=== PATIENT | male | born 1935 | race Caucasian/White ===

== ENCOUNTER 2016-05-28 17:43 | Inpatient (IN) | payer OTHER, BC ==
[~2016-05-28] VITALS: Ht 182.9 cm; Wt 75.5 kg
[~2016-05-28 17:43] MED LIST: ACET325T96 PO; ACETAMINOPHEN-COD PO; ADVIN25050 INH; ALBUAER19 INH; ASPCH81X PO; B-COTAB18 PO; CHOL100010 PO; CLC100 PO; CLOP1TAB5 PO; CRG625 PO; CYAN100020 PO; FOLI1TAB7 PO; HYDR200T5 PO; LDXCR60 TOP; LISI-729 PO; LSX40 PO; MAGNTAB17 PO; METH2.5T PO; MULT-190 PO; SIMV40TA4 PO; TIOTCAP INH; [UNRECOGNIZED DRUG - CODE] PO
[2016-05-28] MEDS ORDERED: ONDANSETRON INJ 2 MG/ML 2 ML VIAL IV STA (17:55)
[2016-05-28] MEDS ORDERED: SODIUM CHLORIDE 0.9% 1000ML 1,000 ML IV STA (17:55)
[2016-05-28] MEDS ORDERED: SPRIN/30 INH (18:05)
[2016-05-28] MEDS ORDERED: CHOL100041 PO (18:05)
[2016-05-28] MEDS ORDERED: PRVHFAIN INH (18:05)
--- NOTE | 2016-05-28 18:10 | EMERGENCY ROOM VISIT NOTE ---
History Report prepared by Chapito: Reyna Bridges Under the Supervision of: Kirsten BlueO. First contact with patient: 17:53 Chief Complaint: VOMITING Stated Complaint: HX OF CROHNS, 2 BOWEL RESECTIONS,VOMITING LAST 2HR History of Present Illness The patient is a 80 year old male who presents to the Emergency Room with complaints of intermittent vomiting for the past few hours. The patient has a history of Crohn's disease. He has had 2 bowel resections - the first in 1995 and the second in 2005. He has a history of bowel obstructions and states that today's symptoms feel similar to his previous obstructions. Per , the patient has been constipated for the past 3 days. He has been taking Colace and MiraLAX. He had a large bowel movement this morning. 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 The patient rates his pain as a 4/10 in severity. He also notes abdominal distention. He has been able to pass gas. The patient has an appointment at [facility] in 2 weeks to schedule surgery for an AAA. 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 A total of 10 systems reviewed and were otherwise negative. Past Medical & Surgical Medical Problems: (1) Bowel resection (2) Crohn's disease (3) Enterocolitis (4) Intractable vomiting with nausea (5) Lupus Family History Omitted due to advanced age Social History Smoking Status: Former Smoker Marital Status: Housing Status: lives with family Occupation Status: retired Current/Historical Medications Scheduled Aspirin (Aspirin Chewable), 81 MG PO HS B-Complex Vitamins (Vitamin B Complex), 1 TAB PO DAILY Carvedilol (Carvedilol), 6.25 MG PO BID Cholecalciferol (D 1000), 1,000 UNITS PO DAILY Cyanocobalamin (Vitamin B12), 1,000 MCG PO DAILY Fluticasone Prop/Salmeterol (Advair Diskus 250-50 Mcg/Dose), 1 PUFF INH Q12 Folic Acid (Folvite), 1 MG PO DAILY Furosemide (Furosemide), 20 MG PO DAILY Lisinopril (Zestril), 5 MG PO DAILY Magnesium Chloride-Calcium Car (Slow-Mag), 1 TAB PO BID Ocuvite Preservision (Ocuvite Preservision), 1 TAB PO BID Simvastatin (Zocor), 40 MG PO QPM Tiotropium Russell (Spiriva Handihaler), 1 CAP INH DAILY Scheduled PRN Albuterol (Ventolin Hfa), 2 PUFFS INH q4-6 PRN for Shortness of Breath Docusate Sodium (Docusate Sodium), 100 MG PO BID PRN for Constipation Allergies Coded Allergies: Ibuprofen (Verified Allergy, Unknown, ileus, 05/28/16) Morphine (Verified Allergy, Unknown, PATIENT GETS AN ILEUS, 05/28/16) IF PATIENT IS UNABLE TO MOVE AND WALK AFTER RECEIVING ANY NARCOTICS, HE WILL GET AN ILEUS. Uncoded Allergies: NARCOTICS (Allergy, Unknown, ILEUS, 09/01/13) IF PATIENT IS UNABLE TO MOVE AND WALK AFTER RECEIVING ANY NARCOTICS, HE WILL GET AN ILEUS. Physical Exam Vital Signs Date Time Temp Pulse Resp B/P Pulse Ox O2 Delivery O2 Flow Rate FiO2 05/28/16 20:04 82 22 124/77 91 Room Air 05/28/16 18:35 89 05/28/16 17:45 94 20 128/72 97 Room Air Physical Exam GENERAL: Patient is awake, alert, mildly anxious and uncomfortable appearing. Appears to be in some degree of pain. EYES: The conjunctivae are clear. The pupils are round and reactive. EARS, NOSE, MOUTH AND THROAT: The nose is without any evidence of any deformity. Mucous membranes are dry, tongue is midline NECK: The neck is nontender and supple. RESPIRATORY: Normal respiratory effort is noted there is no evidence of wheezing rhonchi or rales CARDIOVASCULAR: Regular rate and rhythm noted there no murmurs rubs or gallops normal S1 normal S2 GASTROINTESTINAL: The abdomen is moderately distended and diffusely tender, no specific guarding or rigidity. MUSCULOSKELETAL/EXTREMITIES: There is no evidence of gross deformity full range of motion is noted in the hips and shoulders SKIN: There is no obvious evidence of any rash. There are no petechiae, pallor or cyanosis noted. Pedal edema noted bilaterally. NEUROLOGIC: Patient is awake alert and oriented x3 Medical Decision & Procedures ER Provider Diagnostic Interpretation: Radiology results as stated below per my review and radiologist interpretation: SINGLE VIEW CHEST CLINICAL HISTORY: Generalized abdominal pain. FINDINGS: 2 AP, portable, upright chest radiographs are compared to study dated 02/24/2016 and correlated with chest CT dated 10/06/2014. The examination is degraded by portable technique and patient rotation. A single lead cardiac AICD is unchanged in position and partially obscures the left upper chest. The patient is status post midline sternotomy. The heart is enlarged and there is atherosclerotic calcification of the thoracic aorta. The pulmonary vasculature is noncongested. Advanced emphysema and chronic interstitial thickening is unchanged. No airspace consolidation, pleural effusion, or pneumothorax is seen. Apical scarring is observed. The skeletal structures are osteopenic. The bony thorax is grossly intact. IMPRESSION: 1. Cardiomegaly and AICD. There is no radiographic evidence of congestive failure. 2. Advanced emphysema. 3. No airspace consolidation or pleural effusion is identified. Electronically signed by: Damian Pretty M.D. 05/28/2016 6:15 PM Dictated Date/Time: 05/28/2016 6:[address] SCAN OF THE ABDOMEN AND PELVIS WITHOUT IV CONTRAST CLINICAL HISTORY: Generalized abdominal pain. Vomiting. COMPARISON STUDY: Abdominal CT dated 10/06/2014. TECHNIQUE: CT scan of the abdomen and pelvis is performed from the lung bases to the proximal femora. Images are reviewed in the axial, sagittal, and coronal planes. IV contrast was not administered for this examination as per the referring clinician. Note that the examination was performed and significant suboptimal fashion without oral and IV contrast. Automated dose control exposure was utilized. CT DOSE: 359.02 mGy.cm FINDINGS: Lung bases: Midline sternotomy wires are noted. The heart is enlarged and without pericardial effusion. Pacemaker leads are noted. The coronary arteries are densely calcified. Emphysema is present at the lung bases. No airspace consolidation or pleural effusion is identified. There is a small hiatal hernia. Liver: The unenhanced liver is normal in size and heterogeneous in attenuation. There is nodularity of the hepatic surface contour suggesting early change of cirrhosis. There is no intrahepatic biliary ductal dilatation. There is a 2.6 cm hepatic cyst. Gallbladder: Unremarkable. Spleen: Normal in size and attenuation. Pancreas: The unenhanced pancreas is moderately atrophic and grossly unremarkable. Adrenal glands: Unremarkable. Kidneys: The unenhanced kidneys are atrophic and without hydronephrosis. There are numerous bilateral nonobstructing renal calculi. The largest is in the lower pole of the left kidney measures 1.3 cm. A predominantly fat-containing lesion arising exophytically from the upper pole of left kidney is again seen. This measures 7.2 x 5.8 cm and is typical in appearance for an angiomyolipoma. There are numerous bilateral renal cysts measure up to 3.0 cm. There is a partially exophytic lesion arising from the posterior interpolar left kidney on image #180 measuring 1.8 cm. This does not meet CT criteria for a simple cyst. A subcentimeter complex/hemorrhagic cyst arising from the lower pole of left kidney is unchanged from 2015. Abdominal vasculature: There is advanced atherosclerotic calcification of the abdominal aorta. An infrarenal abdominal aortic aneurysm measures 4.3 x 5.2 cm. Mild aneurysmal dilatation is seen within the common femoral arteries bilaterally. These measure up to 1.8 cm. Bowel: There are postoperative changes from partial bowel resections with ileocolic anastomosis. An additional suture line is seen in the left lower quadrant. There are mildly distended fluid-filled loops of small bowel measuring up to 4.0 cm. There is also distention of the fluid-filled cecum. A few partially decompressed small bowel are seen in the left lower quadrant. No transition point is identified and there is no definite evidence of bowel obstruction. No thick walled bowel loops are identified. There is no pneumatosis intestinalis or portal venous gas. There is mild colonic diverticulosis without CT evidence of acute diverticulitis. Liquid stool seen throughout the right colon. The appendix is not identified and reported surgically absent. Peritoneum: There is no intraperitoneal free air or abdominal ascites. Lymphadenopathy: None. Pelvic viscera: The bladder is normal as visualized. The prostate gland is diminutive. Postoperative change is present in the groin bilaterally. Skeletal structures: The skeletal structures are osteopenic. No lytic or blastic lesions are seen. There is moderate lumbosacral spondylosis as well as scoliosis. Compression deformities are noted involving T12 and L4. IMPRESSION: 1. Significantly suboptimal examination without oral and IV contrast. 2. There are postoperative changes from bowel resections with ileocolic anastomosis. The small bowel loops are mildly distended and fluid-filled and there is distention of the fluid-filled cecum. No transition point is clearly identified and there is no definite evidence of bowel obstruction. This could represent an ileus or possibly a nonspecific enterocolitis. Clinical correlation will be required. 3. Cardiomegaly and emphysema. 4. 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 5. There are numerous bilateral nonobstructing renal calculi. 6. There is a 4.3 x 5.2 cm infrarenal abdominal aortic aneurysm. 7. There are numerous bilateral renal cysts. A 1.8 cm partially exophytic lesion in the interpolar left kidney is not clearly meet CT criteria for a simple cyst but has been present on prior examinations. If clinically warranted, a nonemergent follow-up renal protocol CT or MRI could be considered for further assessment. 8. Findings suggest early changes of cirrhosis. 9. Additional findings as above. Electronically signed by: Damian Pretty M.D. 05/28/2016 7:02 PM Dictated Date/Time: 05/28/2016 6:44 PM Laboratory Results Test 05/28/16 17:30 Immature Granulocyte % (Auto) 0.2 % White Blood Count 4.73 K/uL (4.8-10.8) Red Blood Count 3.42 M/uL (4.7-6.1) Hemoglobin 11.2 g/dL (14.0-18.0) Hematocrit 33.4 % (42-52) Mean Corpuscular Volume 97.7 fL (80-100) Mean Corpuscular Hemoglobin 32.7 pg (25-34) Mean Corpuscular Hemoglobin Concent 33.5 g/dl (32-36) Platelet Count 127 K/uL (130-400) Mean Platelet Volume 10.3 fL (7.4-10.4) Neutrophils (%) (Auto) 80.0 % Lymphocytes (%) (Auto) 11.8 % Monocytes (%) (Auto) 7.6 % Eosinophils (%) (Auto) 0.2 % Basophils (%) (Auto) 0.2 % Neutrophils # (Auto) 3.78 K/uL (1.4-6.5) Lymphocytes # (Auto) 0.56 K/uL (1.2-3.4) Monocytes # (Auto) 0.36 K/uL (0.11-0.59) Eosinophils # (Auto) 0.01 K/uL (0-0.5) Basophils # (Auto) 0.01 K/uL (0-0.2) Immature Granulocyte # (Auto) 0.01 K/uL (0.00-0.02) Hyposegmented Neutrophils 1+ Direct Bilirubin 0.3 mg/dl (0-0.2) Lipase 115 U/L (73-393) Laboratory results per my review. Medications Administered Medications (Trade) Dose Ordered Sig/Liya Route Start Time Stop Time Status Last Admin Dose Admin Sodium Chloride (Nss 1000ml) 1,000 ml @ 999 mls/hr Q1H1M STAT IV 05/28/16 17:55 05/28/16 18:55 DC 05/28/16 18:32 999 MLS/HR Ondansetron HCl (Zofran Inj) 4 mg NOW STAT IV 05/28/16 17:55 05/28/16 17:58 DC 05/28/16 18:32 4 MG Acetaminophen (Tylenol Tab) 1,000 mg STK-MED ONCE PO 05/28/16 20:32 05/28/16 20:34 DC 05/28/16 20:37 1,000 MG Ondansetron HCl 4 mg 4 mg Q6H PRN IV 05/28/16 21:30 06/27/16 21:29 05/29/16 06:20 4 MG Sodium Chloride (Nss 1000ml) 1,000 ml @ 50 mls/hr Q20H IV 05/28/16 21:30 05/31/16 07:01 05/28/16 23:27 100 MLS/HR ECG Indication: abdominal pain Rate (beats per minute): 94 Rhythm: normal sinus Findings: nonspecific-ST abn, no ectopy Comparison ECG Date: 11/11/2014 Change: T-wave inversions are new. ED Course 1752: The patient was evaluated in room A11B. A complete history and physical examination were performed. 1754: Zofran 4 mg IV, NSS 1000 ml @ 999 mls/hr IV 1928: I reassessed the patient at this time. He is feeling better and resting comfortably. I discussed the results and treatment plan with the patient. I answered all pertaining questions that he had. He expressed understanding and verbalized agreement. 1952: I spoke with Dr. Sagastume. We discussed the patient's results and treatment plan. The patient will be evaluated by the [facility] for further management. Medical Decision Differential diagnosis: Etiologies such as gastroenteritis, food borne illness, infections, appendicitis , diverticulitis, inflammatory bowel disease, obstruction, GI bleed, biliary pathology, as well as others were entertained. Nursing notes reviewed. Additional history obtained from the patient's family member. The patient is an 80-year-old male who presented to the emergency department for an evaluation of abdominal distention and vomiting. The patient is a history of Crohn's disease and has had multiple resections in the past. I thought his history and physical exam are consistent with bowel obstruction. He has a history of a AAA which is scheduled for possible surgical management and they're still trying to medically clear the patient because he has significant cardiac history as well. This reason I did not want to give the patient and IV dye load so a noncontrast CT was obtained. It did not show a definite obstruction but showed multiple dilated loops of bowel with fluid-filled segments. I do feel this could represent a partial small bowel obstruction or possibly a major ileus or possibly even an exacerbation of his Crohn's disease. I discussed the patient's laboratory radiographic studies with him. He was treated with IV fluids IV pain medicine and IV antiemetics. He was feeling much better. I discussed his case with the on-call [facility] hospitalist group. They have agreed to evaluate the patient in the emergency apartment for further management and disposition. Consults Time Called: 1929 Consulting Physician: Dr. Sagastume Returned Call: [address] Sagastume. We discussed the patient's results and treatment plan. The patient will be evaluated by the [facility] for further management. Impression Primary Impression: Nausea & vomiting Additional Impressions: Abnormal ECG Partial small bowel obstruction Ileus Scribe Attestation The scribe's documentation has been prepared under my direction and personally reviewed by me in its entirety. I confirm that the note above accurately reflects all work, treatment, procedures, and medical decision making performed by me. Departure Information Dispostion Being Evaluated By Hospitalist Referrals Tr Wild M.D. (PCP) Patient Instructions My [facility] Problem Qualifiers Primary Impression: Nausea & vomiting Vomiting type: unspecified Vomiting Intractability: unspecified Qualified Codes: R11.2 - Nausea with vomiting, unspecified
--- NOTE | 2016-05-28 18:16 | DIAGNOSTIC IMAGING REPORT ---
SINGLE VIEW CHEST CLINICAL HISTORY: Generalized abdominal pain. FINDINGS: 2 AP, portable, upright chest radiographs are compared to study dated 02/24/2016 and correlated with chest CT dated 10/06/2014. The examination is degraded by portable technique and patient rotation. A single lead cardiac AICD is unchanged in position and partially obscures the left upper chest. The patient is status post midline sternotomy. The heart is enlarged and there is atherosclerotic calcification of the thoracic aorta. The pulmonary vasculature is noncongested. Advanced emphysema and chronic interstitial thickening is unchanged. No airspace consolidation, pleural effusion, or pneumothorax is seen. Apical scarring is observed. The skeletal structures are osteopenic. The bony thorax is grossly intact. IMPRESSION: 1. Cardiomegaly and AICD. There is no radiographic evidence of congestive failure. 2. Advanced emphysema. 3. No airspace consolidation or pleural effusion is identified. Electronically signed by: Damian Pretty M.D. 05/28/2016 6:15 PM Dictated Date/Time: 05/28/2016 6:13 PM
[2016-05-28 18:39] LABS: HEMATOCRIT 33.4 % (42-52); MEAN CELL VOLUME 97.7 fL (80-100); MEAN CORPUSCULAR HEMOGLOBIN 32.7 pg (25-34); MEAN CORPUSCULAR HGB CONC 33.5 g/dl (32-36); MEAN PLATELET VOLUME 10.3 fL (7.4-10.4); PLATELET COUNT 127 K/uL (130-400); RED BLOOD COUNT 3.42 M/uL (4.7-6.1); WHITE BLOOD COUNT 4.73 K/uL (4.8-10.8)
[2016-05-28 18:48] LABS: INR 1.1 (0.9-1.1); PARTIAL THROMBOPLASTIN RATIO 1.1; PROTHROMBIN TIME (PATIENT) 12.2 SECONDS (9.0-12.0)
[2016-05-28 18:55] LABS: BASO % 0.2 %; BASO ABS # 0.01 K/uL (0-0.2); COMPLETE YES; EOS % 0.2 %; HYPOSEGMENTED POLYS 1+; IG% 0.2 %; LYMPH % 11.8 %; LYMPH ABS # 0.56 K/uL (1.2-3.4); MONO % 7.6 %
--- NOTE | 2016-05-28 19:03 | DIAGNOSTIC IMAGING REPORT ---
CT SCAN OF THE ABDOMEN AND PELVIS WITHOUT IV CONTRAST CLINICAL HISTORY: Generalized abdominal pain. Vomiting. COMPARISON STUDY: Abdominal CT dated 10/06/2014. TECHNIQUE: CT scan of the abdomen and pelvis is performed from the lung bases to the proximal femora. Images are reviewed in the axial, sagittal, and coronal planes. IV contrast was not administered for this examination as per the referring clinician. Note that the examination was performed and significant suboptimal fashion without oral and IV contrast. Automated dose control exposure was utilized. CT DOSE: 359.02 mGy.cm FINDINGS: Lung bases: Midline sternotomy wires are noted. The heart is enlarged and without pericardial effusion. Pacemaker leads are noted. The coronary arteries are densely calcified. Emphysema is present at the lung bases. No airspace consolidation or pleural effusion is identified. There is a small hiatal hernia. Liver: The unenhanced liver is normal in size and heterogeneous in attenuation. There is nodularity of the hepatic surface contour suggesting early change of cirrhosis. There is no intrahepatic biliary ductal dilatation. There is a 2.6 cm hepatic cyst. Gallbladder: Unremarkable. Spleen: Normal in size and attenuation. Pancreas: The unenhanced pancreas is moderately atrophic and grossly unremarkable. Adrenal glands: Unremarkable. Kidneys: The unenhanced kidneys are atrophic and without hydronephrosis. There are numerous bilateral nonobstructing renal calculi. The largest is in the lower pole of the left kidney measures 1.3 cm. A predominantly fat-containing lesion arising exophytically from the upper pole of left kidney is again seen. This measures 7.2 x 5.8 cm and is typical in appearance for an angiomyolipoma. There are numerous bilateral renal cysts measure up to 3.0 cm. There is a partially exophytic lesion arising from the posterior interpolar left kidney on image #180 measuring 1.8 cm. This does not meet CT criteria for a simple cyst. A subcentimeter complex/hemorrhagic cyst arising from the lower pole of left kidney is unchanged from 2015. Abdominal vasculature: There is advanced atherosclerotic calcification of the abdominal aorta. An infrarenal abdominal aortic aneurysm measures 4.3 x 5.2 cm. Mild aneurysmal dilatation is seen within the common femoral arteries bilaterally. These measure up to 1.8 cm. Bowel: There are postoperative changes from partial bowel resections with ileocolic anastomosis. An additional suture line is seen in the left lower quadrant. There are mildly distended fluid-filled loops of small bowel measuring up to 4.0 cm. There is also distention of the fluid-filled cecum. A few partially decompressed small bowel are seen in the left lower quadrant. No transition point is identified and there is no definite evidence of bowel obstruction. No thick walled bowel loops are identified. There is no pneumatosis intestinalis or portal venous gas. There is mild colonic diverticulosis without CT evidence of acute diverticulitis. Liquid stool seen throughout the right colon. The appendix is not identified and reported surgically absent. Peritoneum: There is no intraperitoneal free air or abdominal ascites. Lymphadenopathy: None. Pelvic viscera: The bladder is normal as visualized. The prostate gland is diminutive. Postoperative change is present in the groin bilaterally. Skeletal structures: The skeletal structures are osteopenic. No lytic or blastic lesions are seen. There is moderate lumbosacral spondylosis as well as scoliosis. Compression deformities are noted involving T12 and L4. IMPRESSION: 1. Significantly suboptimal examination without oral and IV contrast. 2. There are postoperative changes from bowel resections with ileocolic anastomosis. The small bowel loops are mildly distended and fluid-filled and there is distention of the fluid-filled cecum. No transition point is clearly identified and there is no definite evidence of bowel obstruction. This could represent an ileus or possibly a nonspecific enterocolitis. Clinical correlation will be required. 3. Cardiomegaly and emphysema. 4. 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 5. There are numerous bilateral nonobstructing renal calculi. 6. There is a 4.3 x 5.2 cm infrarenal abdominal aortic aneurysm. 7. There are numerous bilateral renal cysts. A 1.8 cm partially exophytic lesion in the interpolar left kidney is not clearly meet CT criteria for a simple cyst but has been present on prior examinations. If clinically warranted, a nonemergent follow-up renal protocol CT or MRI could be considered for further assessment. 8. Findings suggest early changes of cirrhosis. 9. Additional findings as above. Electronically signed by: Damian Pretty M.D. 05/28/2016 7:02 PM Dictated Date/Time: 05/28/2016 6:44 PM
[2016-05-28 19:16] LABS: ALT/SGPT 18 U/L (12-78); BLOOD UREA NITROGEN 27 mg/dl (7-18); BUN/CREATININE RATIO 31.5 (10-20); CALCIUM 8.7 mg/dl (8.5-10.1); CARBON DIOXIDE 23 mmol/L (21-32); CHLORIDE 95 mmol/L (98-107); CREATININE 0.87 mg/dl (0.60-1.40); GLUCOSE 111 mg/dl (70-99); POTASSIUM 4.2 mmol/L (3.5-5.1); SODIUM 132 mmol/L (136-145)
[2016-05-28 19:21] LABS: ALKALINE PHOSPHATASE 111 U/L (45-117); AST/SGOT 24 U/L (15-37)
[2016-05-28] MEDS ORDERED: ACETAMINOPHEN 500 MG TAB PO ONE (20:32)
[2016-05-28] MEDS ORDERED: ALBUTEROL HFA 8 GM INHALER INH PRN (21:30)
[2016-05-28] MEDS ORDERED: ALUMINUM/MAGNESIUM/SIMETH (MAALOX MAX) 30 ML UDC PO PRN (21:30)
[2016-05-28] MEDS ORDERED: DOCUSATE SODIUM 100 MG CAP PO PRN (21:30)
[2016-05-28] MEDS ORDERED: MAGNESIUM HYDROXIDE SUSP 30 ML UDC PO PRN (21:30)
[2016-05-28] MEDS: SODIUM CHLORIDE 0.9% 1000ML 1,000 ML IV SCH (23:27)
[2016-05-29] MEDS: ONDANSETRON INJ 2 MG/ML 2 ML VIAL IV PRN ×3 (00:21→19:45)
[2016-05-29 02:31] VITALS: BP 123/69; PULSE 91; TEMP 36.5; Ht 182.9 cm; Wt 75.5 kg
--- NOTE | 2016-05-29 02:50 | History and Physical ---
History & Physical Date & Time of Service: May 29, 2016 at 02:33 Chief Complaint: Entercolitis, Intractable Vomiting With Nausea Primary Care Physician: Tr Wild M.D. History of Present Illness This is an 80 yo m that is presenting to us with new onset intractable N&V and abdominal discomfort. This started approx 2 hours [employer] RO[employer] WORK[employer]. he lasted vomited outside of the emergency room. He does have lower abdominal "cramping" and is currently a 3/10. It is constant without any alleviating factors. He does feel better after receiving Zofran. He does have a h/o bowel resection x2, one in 1995 and one in early 1999 for Crohn's disease. As a result he has had SBO in the past and feels that this is similar to those previous episodes and decided to come to the ED. He was evaluated and found to have inflammation of the colon reflective of enterocolitis vs ileus. he was also noted to be slightly hyponatremic. he does follow with Dr mullen for his Crohn's regularly. he also has a h/o abdominal aneurysm which is planned to be surgically repaired in June. Dr Brown follows him in the oupt setting for his severe CHF. He does have a defibb in place because of it. Last echo was actually May 22, 2016 and revealed: - mild global hypokinesis - decreased LV systolic function - EF 45% - mod- Severe TR Past Medical/Surgical History Medical Problems: (1) Bowel resection Status: Resolved (2) Crohn's disease Status: Chronic (3) Lupus Status: Chronic CHF with defibb CABG Abdominal aneurysm Family History Omitted due to advanced age Social History Smoking Status: Former Smoker Smokeless Tobacco Use: No Alcohol Use: none Drug Use: none Marital Status: Housing status: lives with family Occupational Status: retired Allergies Coded Allergies: Ibuprofen (Verified Allergy, Unknown, ileus, 05/28/16) Morphine (Verified Allergy, Unknown, PATIENT GETS AN ILEUS, 05/28/16) IF PATIENT IS UNABLE TO MOVE AND WALK AFTER RECEIVING ANY NARCOTICS, HE WILL GET AN ILEUS. Uncoded Allergies: NARCOTICS (Allergy, Unknown, ILEUS, 09/01/13) IF PATIENT IS UNABLE TO MOVE AND WALK AFTER RECEIVING ANY NARCOTICS, HE WILL GET AN ILEUS. Home Medications Scheduled Aspirin (Aspirin Chewable), 81 MG PO HS B-Complex Vitamins (Vitamin B Complex), 1 TAB PO DAILY Carvedilol (Carvedilol), 6.25 MG PO BID Cholecalciferol (D 1000), 1,000 UNITS PO DAILY Cyanocobalamin (Vitamin B12), 1,000 MCG PO DAILY Fluticasone Prop/Salmeterol (Advair Diskus 250-50 Mcg/Dose), 1 PUFF INH Q12 Folic Acid (Folvite), 1 MG PO DAILY Furosemide (Furosemide), 20 MG PO DAILY Lisinopril (Zestril), 5 MG PO DAILY Magnesium Chloride-Calcium Car (Slow-Mag), 1 TAB PO BID Ocuvite Preservision (Ocuvite Preservision), 1 TAB PO BID Simvastatin (Zocor), 40 MG PO QPM Tiotropium Wade (Spiriva Handihaler), 1 CAP INH DAILY Scheduled PRN Albuterol (Ventolin Hfa), 2 PUFFS INH q4-6 PRN for Shortness of Breath Docusate Sodium (Docusate Sodium), 100 MG PO BID PRN for Constipation Review of Systems Constitutional: No fever Eyes: No worsening of vision ENT: No hearing loss Respiratory: No cough, No dyspnea at rest, No dyspnea on exertion, No shortness of breath, No sputum, No wheezing Cardiovascular: No chest pain Abdomen: + nausea, + pain, + vomiting, No constipation, No diarrhea Musculoskeletal: No joint pain, No muscle pain Genitourinary - Male: No hematuria Neurologic: No memory loss Endocrine: No fatigue Integumentary: No rash Physical Exam Vital Signs Date Time Temp Pulse Resp B/P Pulse Ox O2 Delivery O2 Flow Rate FiO2 05/28/16 21:58 89 20 113/70 93 Room Air 05/28/16 20:04 82 22 124/77 91 Room Air 05/28/16 18:35 89 05/28/16 17:45 94 20 128/72 97 Room Air General Appearance: WD/WN, no apparent distress Head: normocephalic, atraumatic Eyes: normal inspection ENT: normal ENT inspection Neck: supple Respiratory/Chest: lungs clear, normal breath sounds, no respiratory distress, no accessory muscle use Cardiovascular: regular rate, rhythm, no murmur Abdomen/GI: soft, + tenderness (lower abd without rebound), + distended, + pertinent finding (small umbilical hernia noted) Back: normal inspection Extremities/Musculoskelatal: no calf tenderness, no pedal edema Neurologic/Psych: no motor/sensory deficits, alert, normal mood/affect, oriented x 3 Skin: normal color, warm/dry, no rash Lymphatic: no adenopathy Diagnostics Laboratory Results Results Past 24 Hours Test 05/28/16 17:30 Range/Units White Blood Count 4.73 4.8-10.8 K/uL Red Blood Count 3.42 4.7-6.1 M/uL Hemoglobin 11.2 14.0-18.0 g/dL Hematocrit 33.4 42-52 % Mean Corpuscular Volume 97.7 80-100 fL Mean Corpuscular Hemoglobin 32.7 25-34 pg Mean Corpuscular Hemoglobin Concent 33.5 32-36 g/dl Platelet Count 127 130-400 K/uL Mean Platelet Volume 10.3 7.4-10.4 fL Neutrophils (%) (Auto) 80.0 % Lymphocytes (%) (Auto) 11.8 % Monocytes (%) (Auto) 7.6 % Eosinophils (%) (Auto) 0.2 % Basophils (%) (Auto) 0.2 % Neutrophils # (Auto) 3.78 1.4-6.5 K/uL Lymphocytes # (Auto) 0.56 1.2-3.4 K/uL Monocytes # (Auto) 0.36 0.11-0.59 K/uL Eosinophils # (Auto) 0.01 0-0.5 K/uL Basophils # (Auto) 0.01 0-0.2 K/uL RDW Standard Deviation 57.2 36.4-46.3 fL RDW Coefficient of Variation 16.2 11.5-14.5 % Immature Granulocyte % (Auto) 0.2 % Immature Granulocyte # (Auto) 0.01 0.00-0.02 K/uL Hyposegmented Neutrophils 1+ Prothrombin Time 12.2 9.0-12.0 SECONDS Prothromb Time International Ratio 1.1 0.9-1.1 Activated Partial Thromboplast Time 29.6 21.0-31.0 SECONDS Partial Thromboplastin Ratio 1.1 Sodium Level 132 136-145 mmol/L Potassium Level 4.2 3.5-5.1 mmol/L Chloride Level 95 98-107 mmol/L Carbon Dioxide Level 23 21-32 mmol/L Anion Gap 14.0 3-11 mmol/L Blood Urea Nitrogen 27 7-18 mg/dl Creatinine 0.87 0.60-1.40 mg/dl Est Creatinine Clear Calc Drug Dose 74.3 ml/min Estimated GFR () 94.5 Estimated GFR (Non- 81.5 BUN/Creatinine Ratio 31.5 10-20 Random Glucose 111 70-99 mg/dl Calcium Level 8.7 8.5-10.1 mg/dl Total Bilirubin 0.7 0.2-1 mg/dl Direct Bilirubin 0.3 0-0.2 mg/dl Aspartate Amino Transf (AST/SGOT) 24 15-37 U/L Alanine Aminotransferase (ALT/SGPT) 18 12-78 U/L Alkaline Phosphatase 111 45-117 U/L Troponin I < 0.015 0-0.045 ng/ml Total Protein 8.0 6.4-8.2 gm/dl Albumin 3.6 3.4-5.0 gm/dl Lipase 115 73-393 U/L Diagnostic Radiology CT SCAN OF THE ABDOMEN AND PELVIS WITHOUT IV CONTRAST CLINICAL HISTORY: Generalized abdominal pain. Vomiting. COMPARISON STUDY: Abdominal CT dated 10/06/2014. TECHNIQUE: CT scan of the abdomen and pelvis is performed from the lung bases to the proximal femora. Images are reviewed in the axial, sagittal, and coronal planes. IV contrast was not administered for this examination as per the referring clinician. Note that the examination was performed and significant suboptimal fashion without oral and IV contrast. Automated dose control exposure was utilized. CT DOSE: 359.02 mGy.cm FINDINGS: Lung bases: Midline sternotomy wires are noted. The heart is enlarged and without pericardial effusion. Pacemaker leads are noted. The coronary arteries are densely calcified. Emphysema is present at the lung bases. No airspace consolidation or pleural effusion is identified. There is a small hiatal hernia. Liver: The unenhanced liver is normal in size and heterogeneous in attenuation. There is nodularity of the hepatic surface contour suggesting early change of cirrhosis. There is no intrahepatic biliary ductal dilatation. There is a 2.6 cm hepatic cyst. Gallbladder: Unremarkable. Spleen: Normal in size and attenuation. Pancreas: The unenhanced pancreas is moderately atrophic and grossly unremarkable. Adrenal glands: Unremarkable. Kidneys: The unenhanced kidneys are atrophic and without hydronephrosis. There are numerous bilateral nonobstructing renal calculi. The largest is in the lower pole of the left kidney measures 1.3 cm. A predominantly fat-containing lesion arising exophytically from the upper pole of left kidney is again seen. This measures 7.2 x 5.8 cm and is typical in appearance for an angiomyolipoma. There are numerous bilateral renal cysts measure up to 3.0 cm. There is a partially exophytic lesion arising from the posterior interpolar left kidney on image #180 measuring 1.8 cm. This does not meet CT criteria for a simple cyst. A subcentimeter complex/hemorrhagic cyst arising from the lower pole of left kidney is unchanged from 2015. Abdominal vasculature: There is advanced atherosclerotic calcification of the abdominal aorta. An infrarenal abdominal aortic aneurysm measures 4.3 x 5.2 cm. Mild aneurysmal dilatation is seen within the common femoral arteries bilaterally. These measure up to 1.8 cm. Bowel: There are postoperative changes from partial bowel resections with ileocolic anastomosis. An additional suture line is seen in the left lower quadrant. There are mildly distended fluid-filled loops of small bowel measuring up to 4.0 cm. There is also distention of the fluid-filled cecum. A few partially decompressed small bowel are seen in the left lower quadrant. No transition point is identified and there is no definite evidence of bowel obstruction. No thick walled bowel loops are identified. There is no pneumatosis intestinalis or portal venous gas. There is mild colonic diverticulosis without CT evidence of acute diverticulitis. Liquid stool seen throughout the right colon. The appendix is not identified and reported surgically absent. Peritoneum: There is no intraperitoneal free air or abdominal ascites. Lymphadenopathy: None. Pelvic viscera: The bladder is normal as visualized. The prostate gland is diminutive. Postoperative change is present in the groin bilaterally. Skeletal structures: The skeletal structures are osteopenic. No lytic or blastic lesions are seen. There is moderate lumbosacral spondylosis as well as scoliosis. Compression deformities are noted involving T12 and L4. IMPRESSION: 1. Significantly suboptimal examination without oral and IV contrast. 2. There are postoperative changes from bowel resections with ileocolic anastomosis. The small bowel loops are mildly distended and fluid-filled and there is distention of the fluid-filled cecum. No transition point is clearly identified and there is no definite evidence of bowel obstruction. This could represent an ileus or possibly a nonspecific enterocolitis. Clinical correlation will be required. 3. Cardiomegaly and emphysema. 4. 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 5. There are numerous bilateral nonobstructing renal calculi. 6. There is a 4.3 x 5.2 cm infrarenal abdominal aortic aneurysm. 7. There are numerous bilateral renal cysts. A 1.8 cm partially exophytic lesion in the interpolar left kidney is not clearly meet CT criteria for a simple cyst but has been present on prior examinations. If clinically warranted, a nonemergent follow-up renal protocol CT or MRI could be considered for further assessment. 8. Findings suggest early changes of cirrhosis. 9. Additional findings as above. SINGLE VIEW CHEST CLINICAL HISTORY: Generalized abdominal pain. FINDINGS: 2 AP, portable, upright chest radiographs are compared to study dated 02/24/2016 and correlated with chest CT dated 10/06/2014. The examination is degraded by portable technique and patient rotation. A single lead cardiac AICD is unchanged in position and partially obscures the left upper chest. The patient is status post midline sternotomy. The heart is enlarged and there is atherosclerotic calcification of the thoracic aorta. The pulmonary vasculature is noncongested. Advanced emphysema and chronic interstitial thickening is unchanged. No airspace consolidation, pleural effusion, or pneumothorax is seen. Apical scarring is observed. The skeletal structures are osteopenic. The bony thorax is grossly intact. IMPRESSION: 1. Cardiomegaly and AICD. There is no radiographic evidence of congestive failure. 2. Advanced emphysema. 3. No airspace consolidation or pleural effusion is identified. EKG sinus arrhythmia Qtc 460 Non specific T wave changes in lateral leads Impression Assessment and Plan This is an 80 yo m with N&V and significant surgical history to the abdomen including two bowel resections and multiple SBO N&V possibly secondary to ileus vs enterocolitis - NPO - NSS @ 50, received bolus in ED - Consult GI - follow CMP and CBC Hyponatremia secondary to dehydration - recheck in am - continue NSS Chronic anemia - follow serial CBC Chronic systolic CHF s/p CABG - cont carvedilol, furosemide and lisinopril Hyper chol - cont simvastatin COPD - cont albuterol and spiriva DVt prophylaxis lovenox full code Level of Care Med/Surg Resuscitation Status FULL RESUSCITATION VTE Prophylaxis VTE Risk Assessment Done? Y/N: Yes Risk Level: Moderate Given or contraindicated: Enoxaparin (Lovenox)SQ Social Service Consult None Apply Note Total Time: Critical Care 30 - 74 minutes Additional Copies To Tr Wild M.D. Assessment and Plan Attending Addendum: I have physically seen and examined this patient, have directed their medical care, have supervised the medical residents activities, and agree with the H&P as noted above, with the following changes: NONE The patient is awake, well-developed and adequately nourished, alert and oriented 3, normocephalic and atraumatic, lying in bed and in no acute distress. HEENT--PERRL, EOMI, mucous membranes and oropharynx dry. Neck--supple, no JVD or bruits, thyroid normal, trachea midline, no adenopathy. Heart--normal S1 and S2, no extra beats, no murmurs, rubs or gallops. Lungs--clear bilaterally, no respiratory distress, no accessory muscle use. Abdomen--normal bowel sounds and soft, tympanitic and mildly distended. Extremities--no cyanosis, clubbing or edema. There are good distal pulses b/l. Dermatologic--normal skin turgor, normal color, warm and dry, no abnormal lymph nodes, no rash. Neurologic--cranial nerves II through XII grossly intact, motor and sensory examination normal. Psychiatric--normal affect. Assessment and Plan: Ileus versus enterocolitis hypo-patient be admitted to the medical surgical floor nothing by mouth except medications at this time. Place on IV fluids, no antibiotics. We'll consult his enrollment services vice president Dr. Mullen. The question will be whether this is a recurrence/flareup of Crohn's disease. Hypertension--continue carvedilol 6.25 mg by mouth twice a day and lisinopril 5 mg by mouth daily. We'll hold furosemide 20 mg by mouth daily. Next Hypercholesterolemia--continue simvastatin 40 mg by mouth every afternoon. Next COPD continue Advair Diskus 250/50 one inhalation twice a day and Spiriva HandiHaler 1 inhalation every morning. Vitamin B12 deficiency--continue supplement 1000 g by mouth daily. Lupus--supportive therapy.
[2016-05-29 06:32] LABS: INR 1.1 (0.9-1.1); PARTIAL THROMBOPLASTIN RATIO 1.2; PROTHROMBIN TIME (PATIENT) 12.3 SECONDS (9.0-12.0)
[2016-05-29 06:34] LABS: MEAN CELL VOLUME 99.1 fL (80-100); MEAN CORPUSCULAR HEMOGLOBIN 32.5 pg (25-34); MEAN CORPUSCULAR HGB CONC 32.8 g/dl (32-36); MEAN PLATELET VOLUME 9.8 fL (7.4-10.4); PLATELET COUNT 111 K/uL (130-400); RED BLOOD COUNT 3.23 M/uL (4.7-6.1); WHITE BLOOD COUNT 4.71 K/uL (4.8-10.8)
[2016-05-29 06:50] LABS: BUN/CREATININE RATIO 32.4 (10-20); CALCIUM 8.2 mg/dl (8.5-10.1); CREATININE 0.66 mg/dl (0.60-1.40); POTASSIUM 3.8 mmol/L (3.5-5.1)
[2016-05-29 07:10] LABS: ALB/GLOB RATIO 0.7 (0.9-2)
[2016-05-29 07:33] VITALS: BP 120/70; PULSE 88; TEMP 37.1; O2SAT 98
[2016-05-29] MEDS: CARVEDILOL 6.25 MG TAB PO SCH ×2 (08:00→20:47)
[2016-05-29] MEDS: MAGNESIUM CHLORIDE 64MG DELAYED REL TAB PO SCH ×2 (08:00→20:46)
[2016-05-29] MEDS ORDERED: CYANOCOBALAMIN 500 MCG TAB (VIT B-12) PO SCH (08:00)
[2016-05-29] MEDS ORDERED: FUROSEMIDE 20 MG TAB PO SCH (08:00)
[2016-05-29] MEDS ORDERED: CHOLECALCIFEROL 1000 INTER.UNIT TAB PO SCH (08:00)
[2016-05-29] MEDS ORDERED: NITROGLYCERIN 0.4 MG SL PER TAB CHARGE SL PRN (08:00)
[2016-05-29] MEDS ORDERED: CEROVITE ADV FORMULA TAB PO SCH (08:00)
[2016-05-29] MEDS: LISINOPRIL 5 MG TAB PO SCH (08:00)
[2016-05-29] MEDS ORDERED: VITAMIN B COMPLEX TAB PO SCH (08:00)
--- NOTE | 2016-05-29 08:02 | Gastroenterology Progress Note ---
Progress Note Subjective Pt evaluation today including: conversation w/ patient, physical exam, chart review (this admit EMR, [facility] EMR), lab review, review of studies Medications Current Inpatient Medications Medications (Trade) Dose Ordered Sig/Liya Route Start Time Stop Time Status Last Admin Dose Admin Enoxaparin Sodium (Lovenox Inj) 40 mg Q24H SQ 05/29/16 09:00 06/28/16 08:59 Acetaminophen (Tylenol Tab) 650 mg Q4H PRN PO 05/28/16 21:30 06/27/16 21:29 Al Hydrox/Mg Hydrox/Simethicone (Maalox Max Susp) 15 ml Q4H PRN PO 05/28/16 21:30 06/27/16 21:29 Magnesium Hydroxide (Milk Of Magnesia Susp) 30 ml Q6H PRN PO 05/28/16 21:30 06/27/16 21:29 Ondansetron HCl (Zofran Inj) 4 mg Q6H PRN IV 05/28/16 21:30 06/27/16 21:29 05/29/16 06:20 4 MG Albuterol (Ventolin Hfa Inhaler) 2 puffs Q6 PRN INH 05/28/16 21:30 06/27/16 21:29 Carvedilol (Coreg Tab) 6.25 mg BID PO 05/29/16 08:00 06/28/16 08:59 Docusate Sodium (coLACE CAP) 100 mg BID PRN PO 05/28/16 21:30 06/27/16 21:29 Salmeterol Xinafoate/ Fluticasone (Advair Diskus 250/50 Inh) 1 puff Q12 INH 05/29/16 09:00 06/28/16 08:59 Folic Acid (Folvite Tab) 1 mg DAILY PO 05/29/16 08:00 06/28/16 08:59 Furosemide (Lasix Tab) 20 mg DAILY PO 05/29/16 08:00 06/28/16 08:59 Lisinopril (Zestril Tab) 5 mg DAILY PO 05/29/16 08:00 06/28/16 08:59 Multivitamins/ Minerals (Multivitamin W/ Minerals Tab) 1 tab BID PO 05/29/16 08:00 06/28/16 08:59 Simvastatin (Zocor Tab) 40 mg QPM PO 05/29/16 21:00 06/28/16 20:59 Tiotropium Mclean (Spiriva Handihaler Inhaler) 1 puff DAILY INH 05/29/16 08:00 06/28/16 08:59 Vitamin B Complex (Vitamin B Complex) 1 tab DAILY PO 05/29/16 08:00 06/28/16 08:59 Cholecalciferol (Vitamin D Tab) 1,000 inter.unit DAILY PO 05/29/16 08:00 06/28/16 08:59 Cyanocobalamin (Vitamin B-12 Tab) 1,000 mcg DAILY PO 05/29/16 08:00 06/28/16 08:59 Magnesium Chloride 64 mg 64 mg BID PO 05/29/16 08:00 06/28/16 08:59 Sodium Chloride (Nss 1000ml) 1,000 ml @ 50 mls/hr Q20H IV 05/28/16 21:30 05/31/16 07:01 05/28/16 23:27 100 MLS/HR Objective Vital Signs Date Time Temp Pulse Resp B/P Pulse Ox O2 Delivery O2 Flow Rate FiO2 05/29/16 07:33 37.1 88 18 120/70 98 1.0 05/29/16 02:31 36.5 91 18 123/69 Room Air 05/28/16 21:58 89 20 113/70 93 Room Air 05/28/16 20:04 82 22 124/77 91 Room Air 05/28/16 18:35 89 05/28/16 17:45 94 20 128/72 97 Room Air Laboratory Results Last 24 Hours Test 05/28/16 17:30 05/29/16 05:45 White Blood Count 4.73 K/uL 4.71 K/uL Red Blood Count 3.42 M/uL 3.23 M/uL Hemoglobin 11.2 g/dL 10.5 g/dL Hematocrit 33.4 % 32.0 % Mean Corpuscular Volume 97.7 fL 99.1 fL Mean Corpuscular Hemoglobin 32.7 pg 32.5 pg Mean Corpuscular Hemoglobin Concent 33.5 g/dl 32.8 g/dl Platelet Count 127 K/uL 111 K/uL Mean Platelet Volume 10.3 fL 9.8 fL Neutrophils (%) (Auto) 80.0 % Lymphocytes (%) (Auto) 11.8 % Monocytes (%) (Auto) 7.6 % Eosinophils (%) (Auto) 0.2 % Basophils (%) (Auto) 0.2 % Neutrophils # (Auto) 3.78 K/uL Lymphocytes # (Auto) 0.56 K/uL Monocytes # (Auto) 0.36 K/uL Eosinophils # (Auto) 0.01 K/uL Basophils # (Auto) 0.01 K/uL RDW Standard Deviation 57.2 fL 57.9 fL RDW Coefficient of Variation 16.2 % 16.0 % Immature Granulocyte % (Auto) 0.2 % Immature Granulocyte # (Auto) 0.01 K/uL Hyposegmented Neutrophils 1+ Prothrombin Time 12.2 SECONDS 12.3 SECONDS Prothromb Time International Ratio 1.1 1.1 Activated Partial Thromboplast Time 29.6 SECONDS 31.7 SECONDS Partial Thromboplastin Ratio 1.1 1.2 Sodium Level 132 mmol/L 133 mmol/L Potassium Level 4.2 mmol/L 3.8 mmol/L Chloride Level 95 mmol/L 99 mmol/L Carbon Dioxide Level 23 mmol/L 24 mmol/L Anion Gap 14.0 mmol/L 10.0 mmol/L Blood Urea Nitrogen 27 mg/dl 21 mg/dl Creatinine 0.87 mg/dl 0.66 mg/dl Est Creatinine Clear Calc Drug Dose 74.3 ml/min 98.0 ml/min Estimated GFR () 94.5 105.8 Estimated GFR (Non- 81.5 91.3 BUN/Creatinine Ratio 31.5 32.4 Random Glucose 111 mg/dl 86 mg/dl Calcium Level 8.7 mg/dl 8.2 mg/dl Total Bilirubin 0.7 mg/dl 0.5 mg/dl Direct Bilirubin 0.3 mg/dl Aspartate Amino Transf (AST/SGOT) 24 U/L 19 U/L Alanine Aminotransferase (ALT/SGPT) 18 U/L 16 U/L Alkaline Phosphatase 111 U/L 93 U/L Troponin I < 0.015 ng/ml 0.463 ng/ml Total Protein 8.0 gm/dl 7.4 gm/dl Albumin 3.6 gm/dl 3.1 gm/dl Lipase 115 U/L Globulin 4.3 gm/dl Albumin/Globulin Ratio 0.7 Assessment and Plan GI Consult dictated Job [id number] bowel obstruction---pt does not have a cecum as suggested on CT--(2006 had ileum to AC anastomosis created)---suspect all SBO. check abd series this am, I called DR Rousseau of surgery for surgery consult to follow patient. Pt has not been on crohns meds since 2014 and no abd complaints to suggest active crohns so doubt a crohns flare but rather from adhesions or fixed stricture n/v--secondary to above improved abd pain--secondary to above--improved. cirrhosis--possibly from jail methotrexate used for his lupus (off Methotrexate since 2014) --nothing acute to do
[2016-05-29] MEDS: FLUTICASONE/SALMETEROL 250/50 (ADVAIR) 14 PUFF/1 INHALER INH SCH ×2 (08:23→20:46)
[2016-05-29] MEDS: TIOTROPIUM BROMIDE 5 PUFF/90 MCG INH INH SCH (08:24)
[2016-05-29] MEDS: ENOXAPARIN 40 MG/0.4 ML SYR SQ SCH (08:25)
--- NOTE | 2016-05-29 08:37 | GASTROINTESTINAL CONSULTATION ---
DATE OF CONSULTATION: 05/29/2016 DATE OF CONSULTATION: 05/29/2016. REASON FOR CONSULTATION: "Crohn's enterocolitis". This is a consultation from the hospitalists. CHIEF COMPLAINT: The patient has nausea, vomiting, abdominal pain. HISTORY OF PRESENT ILLNESS: The patient has a history of Crohn's disease. He has had 2 bowel resections in the past. I saw looking at the [facility] EMR last one was 2005. He had a stricture at the ileocolonic anastomosis which was resected then anastomosis ileum to ascending colon created. Last colonoscopy August 2013 showed the resection and he had a normal ileocolonic anastomosis and normal small bowel. Last EGD I saw on the chart was October 2004 normal. Last office visit with Dr. Mullen 01/09/2016. At the time he mentioned he had been off methotrexate for about a year, was treating his lupus and colitis, but he noticed increased liver fibrosis so that had been stopped; however, at that time he was having only 1-2 bowel movements a day and no abdominal pain and that has persisted. He has had no abdominal pain, his normal 1-2 bowel movements until just last few day. Last few days decreased bowel movements requring laxatives, then had lower abdominal cramps then abdominal distension and intractable nausea and vomiting. He came into the Emergency Room. A CAT scan of the abdomen showed COPD, small hiatal hernia, early cirrhosis, atrophic pancreas, liver cyst, abdominal aortic aneurysm and then some distended small bowel loops and "distended cecum", mild colonic diverticulosis, bowel resection and angiomyoma of the kidney and other left kidney lesion, no change from September 2014. The patient is using ibuprofen 4 a day over the last 3-4 days for back pain. PAST MEDICAL HISTORY: ALLERGIES: IBUPROFEN, MORPHINE, NARCOTICS. MEDICATIONS ON ADMISSION: Aspirin, vitamin B complex, carvedilol, vitamin D, vitamin B12, Advair, Folvite, Lasix, Zestril, magnesium, Ocuvite, Zocor, Spiriva, Ventolin, docusate. PROBLEMS AND SURGERY: CHF, abdominal aortic aneurysm that they are planning to do repair of in June of this year, cutaneous lupus, CABG, COPD, but no need for O2 at home. FAMILY HISTORY: Diabetes. SOCIAL HISTORY: Tobacco negative, ethanol negative. REVIEW OF SYSTEMS: CONSTITUTIONAL: Negative. Eyes macular degeneration. EARS, NOSE, MOUTH, AND THROAT: Negative. CARDIOVASCULAR: Negative. RESPIRATORY: Negative. GENITOURINARY: Negative. MUSCULOSKELETAL: Arthritis. INTEGUMENTARY: Lupus. NEUROLOGIC: Negative. PSYCHIATRIC, ENDOCRINE, HEMATOLOGIC: Negative except as noted above. PHYSICAL EXAMINATION: GENERAL: Male, appears stated age in no acute distress. VITAL SIGNS: Most recent vital signs in chart. Temp 37.1, pulse 88, respirations 18, BP 120/70, pulse oximetry 98% on 1 liter. EYES: Conjunctivae and lids normal. EARS, NOSE, THROAT: Oropharynx clear. NECK: Without obvious mass or thyroid enlargement. RESPIRATORY: Normal effort, clear to anterior auscultation. CARDIOVASCULAR: Without obvious murmur. EXTREMITIES: Without obvious edema. ABDOMEN: Positive bowel sounds, mildly distended and tympanitic. No guarding, no rebound. No obvious organomegaly or masses are appreciated. RECTAL EXAMINATION: Was not done. LYMPH: No obvious neck or groin nodes. MUSCULOSKELETAL: Digits and nails normal. SKIN: Without obvious rash or induration anteriorly. NEUROLOGIC: Cranial nerves intact. Sensation intact. PSYCHIATRIC: Recent and remote memory good. Insight and judgment good. DATA: As above plus CBC on admit, hemoglobin 11.2, PT and PTT were normal. CMP on admission BUN 27 and glucose 111. Otherwise, unremarkable. Lipase on admission was normal. IMPRESSION AND PLAN: 1. Bowel obstruction. I suspect this is all small bowel, I am going to check another abdominal surgeries today, place an NG, keep n.p.o. He has not been on Crohn's meds since 2015 and no abdominal complaints to suggest a Crohn's flare. Suspect fixed stricture maybe from indolent crohns or adhesions. . I consulted Dr. Rousseau of general surgery for surgery consult to follow patient. 2. Nausea and vomiting secondary to above, somewhat improved this morning. 3. Abdominal pain secondary to above, improved. 4. 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 MTDD
[2016-05-29 08:43] VITALS: BP 120/70; PULSE 88; TEMP 37.1; O2SAT 98
--- NOTE | 2016-05-29 09:53 | Surgery Consultation ---
Consultation Date of Consultation: May 29, 2016. Attending Physician: Christopher Sagatsume M.D. Reason for Consultation: Nausea/vomiting/abdominal distention history of Crohn's disease History of Present Illness Higinio is a pleasant 80 year-old male who presented to emergency department yesterday with complaint of nausea, vomiting, and abdominal cramping that started that day. States he has a history of Crohn's disease diagnosed 20 years ago and two bowel resections, last being in 2004. States he recently hurt his back and was taking Ibuprofen daily and believes he got constipated which caused him to get backed up. States he did not eat anything for two days and felt his abdomen to be really distended. Today patient states he is feeling better, abdominal bloating has improved and no nausea , vomiting or abdominal pain. Last bowel movement yesterday morning. Patient denies of any diarrhea. No fever or chills. No chest pain or shortness of breath. Overall feeling better compared to yesterday. Past Medical/Surgical History Medical Problems: (1) Abnormal ECG Status: Acute (2) Possible Ileus/enterocolitis Status: Acute (3) Nausea & vomiting Status: Acute , improving History of Crohn's disease History of bowel resection x 2 History of COPD History of CABG (over 10 years ago) Family History Omitted due to advanced age Social History Smoking Status: Former Smoker Smokeless Tobacco Use: No Alcohol Use: none Drug Use: none Marital Status: Housing Status: lives with family Occupation Status: retired Allergies Coded Allergies: Ibuprofen (Verified Allergy, Unknown, ileus, 05/28/16) Morphine (Verified Allergy, Unknown, PATIENT GETS AN ILEUS, 05/28/16) IF PATIENT IS UNABLE TO MOVE AND WALK AFTER RECEIVING ANY NARCOTICS, HE WILL GET AN ILEUS. Uncoded Allergies: NARCOTICS (Allergy, Unknown, ILEUS, 09/01/13) IF PATIENT IS UNABLE TO MOVE AND WALK AFTER RECEIVING ANY NARCOTICS, HE WILL GET AN ILEUS. Home Medications Scheduled Aspirin (Aspirin Chewable), 81 MG PO HS B-Complex Vitamins (Vitamin B Complex), 1 TAB PO DAILY Carvedilol (Carvedilol), 6.25 MG PO BID Cholecalciferol (D 1000), 1,000 UNITS PO DAILY Cyanocobalamin (Vitamin B12), 1,000 MCG PO DAILY Fluticasone Prop/Salmeterol (Advair Diskus 250-50 Mcg/Dose), 1 PUFF INH Q12 Folic Acid (Folvite), 1 MG PO DAILY Furosemide (Furosemide), 20 MG PO DAILY Lisinopril (Zestril), 5 MG PO DAILY Magnesium Chloride-Calcium Car (Slow-Mag), 1 TAB PO BID Ocuvite Preservision (Ocuvite Preservision), 1 TAB PO BID Simvastatin (Zocor), 40 MG PO QPM Tiotropium [place] (Spiriva Handihaler), 1 CAP INH DAILY Scheduled PRN Albuterol (Ventolin Hfa), 2 PUFFS INH q4-6 PRN for Shortness of Breath Docusate Sodium (Docusate Sodium), 100 MG PO BID PRN for Constipation Current Inpatient Medications Current Inpatient Medications Medications (Trade) Dose Ordered Sig/Liya Route Start Time Stop Time Status Last Admin Dose Admin Enoxaparin Sodium (Lovenox Inj) 40 mg Q24H SQ 05/29/16 09:00 06/28/16 08:59 Acetaminophen (Tylenol Tab) 650 mg Q4H PRN PO 05/28/16 21:30 06/27/16 21:29 Al Hydrox/Mg Hydrox/Simethicone (Maalox Max Susp) 15 ml Q4H PRN PO 05/28/16 21:30 06/27/16 21:29 Magnesium Hydroxide (Milk Of Magnesia Susp) 30 ml Q6H PRN PO 05/28/16 21:30 06/27/16 21:29 Ondansetron HCl (Zofran Inj) 4 mg Q6H PRN IV 05/28/16 21:30 06/27/16 21:29 05/29/16 06:20 4 MG Albuterol (Ventolin Hfa Inhaler) 2 puffs Q6 PRN INH 05/28/16 21:30 06/27/16 21:29 Carvedilol (Coreg Tab) 6.25 mg BID PO 05/29/16 08:00 06/28/16 08:59 Docusate Sodium (coLACE CAP) 100 mg BID PRN PO 05/28/16 21:30 06/27/16 21:29 Salmeterol Xinafoate/ Fluticasone (Advair Diskus 250/50 Inh) 1 puff Q12 INH 05/29/16 09:00 06/28/16 08:59 05/29/16 08:23 1 PUFF Folic Acid (Folvite Tab) 1 mg DAILY PO 05/29/16 08:00 06/28/16 08:59 Lisinopril (Zestril Tab) 5 mg DAILY PO 05/29/16 08:00 06/28/16 08:59 Simvastatin (Zocor Tab) 40 mg QPM PO 05/29/16 21:00 06/28/16 20:59 Tiotropium [place] (Spiriva Handihaler Inhaler) 1 puff DAILY INH 05/29/16 08:00 06/28/16 08:59 05/29/16 08:24 1 PUFF Magnesium Chloride 64 mg 64 mg BID PO 05/29/16 08:00 06/28/16 08:59 Sodium Chloride (Nss 1000ml) 1,000 ml @ 50 mls/hr Q20H IV 05/28/16 21:30 05/31/16 07:01 05/28/16 23:27 100 MLS/HR Nitroglycerin (Nitrostat Tab) 0.4 mg UD PRN SL 05/29/16 08:00 06/28/16 07:59 Review of Systems Constitutional: No chills, No fever, No sweats Respiratory: No shortness of breath Cardiovascular: + chest pain (history of CABG over 10 years ago) Abdomen: No diarrhea (History of Crohn's disease, hx of bowel resection x 2), No nausea, No pain, No vomiting Physical Exam Date Time Temp Pulse Resp B/P Pulse Ox O2 Delivery O2 Flow Rate FiO2 05/29/16 08:43 37.1 88 18 98 2.0 05/29/16 08:30 Nasal Cannula 2.0 05/29/16 07:33 37.1 88 18 120/70 98 1.0 05/29/16 02:31 36.5 91 18 123/69 Room Air 05/28/16 21:58 89 20 113/70 93 Room Air 05/28/16 20:04 82 22 124/77 91 Room Air 05/28/16 18:35 89 05/28/16 17:45 94 20 128/72 97 Room Air General Appearance: WD/WN, no apparent distress Head: normocephalic, atraumatic Eyes: normal inspection Respiratory/Chest: lungs clear, normal breath sounds, no respiratory distress, no accessory muscle use Cardiovascular: regular rate, rhythm, no murmur Abdomen/GI: non tender, soft, + distended (slightly distended no rebound or guarding, midline laparotomy incision and left of midline incision scar present) Extremities/Musculoskelatal: normal inspection Neurologic/Psych: alert, normal mood/affect, oriented x 3 Skin: normal color Laboratory Results Last 24 Hours Test 05/28/16 17:30 05/29/16 05:45 White Blood Count 4.73 K/uL 4.71 K/uL Red Blood Count 3.42 M/uL 3.23 M/uL Hemoglobin 11.2 g/dL 10.5 g/dL Hematocrit 33.4 % 32.0 % Mean Corpuscular Volume 97.7 fL 99.1 fL Mean Corpuscular Hemoglobin 32.7 pg 32.5 pg Mean Corpuscular Hemoglobin Concent 33.5 g/dl 32.8 g/dl Platelet Count 127 K/uL 111 K/uL Mean Platelet Volume 10.3 fL 9.8 fL Neutrophils (%) (Auto) 80.0 % Lymphocytes (%) (Auto) 11.8 % Monocytes (%) (Auto) 7.6 % Eosinophils (%) (Auto) 0.2 % Basophils (%) (Auto) 0.2 % Neutrophils # (Auto) 3.78 K/uL Lymphocytes # (Auto) 0.56 K/uL Monocytes # (Auto) 0.36 K/uL Eosinophils # (Auto) 0.01 K/uL Basophils # (Auto) 0.01 K/uL RDW Standard Deviation 57.2 fL 57.9 fL RDW Coefficient of Variation 16.2 % 16.0 % Immature Granulocyte % (Auto) 0.2 % Immature Granulocyte # (Auto) 0.01 K/uL Hyposegmented Neutrophils 1+ Prothrombin Time 12.2 SECONDS 12.3 SECONDS Prothromb Time International Ratio 1.1 1.1 Activated Partial Thromboplast Time 29.6 SECONDS 31.7 SECONDS Partial Thromboplastin Ratio 1.1 1.2 Sodium Level 132 mmol/L 133 mmol/L Potassium Level 4.2 mmol/L 3.8 mmol/L Chloride Level 95 mmol/L 99 mmol/L Carbon Dioxide Level 23 mmol/L 24 mmol/L Anion Gap 14.0 mmol/L 10.0 mmol/L Blood Urea Nitrogen 27 mg/dl 21 mg/dl Creatinine 0.87 mg/dl 0.66 mg/dl Est Creatinine Clear Calc Drug Dose 74.3 ml/min 98.0 ml/min Estimated GFR () 94.5 105.8 Estimated GFR (Non- 81.5 91.3 BUN/Creatinine Ratio 31.5 32.4 Random Glucose 111 mg/dl 86 mg/dl Calcium Level 8.7 mg/dl 8.2 mg/dl Total Bilirubin 0.7 mg/dl 0.5 mg/dl Direct Bilirubin 0.3 mg/dl Aspartate Amino Transf (AST/SGOT) 24 U/L 19 U/L Alanine Aminotransferase (ALT/SGPT) 18 U/L 16 U/L Alkaline Phosphatase 111 U/L 93 U/L Troponin I < 0.015 ng/ml 0.463 ng/ml Total Protein 8.0 gm/dl 7.4 gm/dl Albumin 3.6 gm/dl 3.1 gm/dl Lipase 115 U/L Globulin 4.3 gm/dl Albumin/Globulin Ratio 0.7 Assessment & Plan CT of ABDOMEN AND PELVIS WITHOUT CONTRAST IMPRESSION: 1. Significantly suboptimal examination without oral and IV contrast. 2. There are postoperative changes from bowel resections with ileocolic anastomosis. The small bowel loops are mildly distended and fluid-filled and there is distention of the fluid-filled cecum. No transition point is clearly identified and there is no definite evidence of bowel obstruction. This could represent an ileus or possibly a nonspecific enterocolitis. Clinical correlation will be required. 3. Cardiomegaly and emphysema. 4. 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 5. There are numerous bilateral nonobstructing renal calculi. 6. There is a 4.3 x 5.2 cm infrarenal abdominal aortic aneurysm. 7. There are numerous bilateral renal cysts. A 1.8 cm partially exophytic lesion in the interpolar left kidney is not clearly meet CT criteria for a simple cyst but has been present on prior examinations. If clinically warranted, a nonemergent follow-up renal protocol CT or MRI could be considered for further assessment. 8. Findings suggest early changes of cirrhosis. 9. Additional findings as above. IMPRESSION: 80 YEAR-OLD WITH POSSIBLE ILEUS/ENTERITIS NAUSEA AND VOMITING IMPROVED NO ABDOMINAL PAIN VITAL SIGNS STABLE PLAN: NO SURGICAL INTERVENTION RECOMMENDED AT THIS TIME RECOMMEND CONSERVATIVE MANAGEMENT AT THIS TIME CONTINUE CURRENT MANAGEMENT WILL FOLLOW PATIENT Dr. Rousseau has seen and examined patient and agrees with above stated findings and treatment plan.
--- NOTE | 2016-05-29 11:24 | DIAGNOSTIC IMAGING REPORT ---
ABDOMEN 2VIEW W/PA CHEST RTN CLINICAL HISTORY: dilated small bowel bowel distention COMPARISON STUDY: 05/29/2016 FINDINGS: Similar distended loops of small bowel in the central abdomen. No evidence for free air. Small amount of air persists within the colon. Small bowel distention terms of absolute diameter slightly increased with a maximum current diameter 4.8 cm IMPRESSION: Findings consistent with distal partial small bowel obstruction. Small bowel distention is slightly increased to 4.8 cm maximum Electronically signed by: Randy Swann M.D. 05/29/2016 11:23 AM Dictated Date/Time: 05/29/2016 11:22 AM
[2016-05-29 15:05] VITALS: BP 127/82; PULSE 97; TEMP 36.9; O2SAT 97
--- NOTE | 2016-05-29 15:05 | Progress Note ---
Subjective Date of Service: May 29, 2016. Subjective pt hsa compliant of bowel distension and fullness no chest pain but epigastric pain Problem List Medical Problems: (1) Abnormal ECG Status: Acute (2) Ileus Status: Acute (3) Nausea & vomiting Status: Acute (4) Partial small bowel obstruction Status: Acute Review of Systems Constitutional: No chills, No fever Respiratory: No cough, No shortness of breath, No sputum Cardiac: No chest pain, No edema Abdomen: + constipation, + pain, No diarrhea, No nausea, No vomiting Musculoskeletal: No joint pain, No muscle pain Male : No dysuria, No urinary frequency Objective Vital Signs Date Time Temp Pulse Resp B/P Pulse Ox O2 Delivery O2 Flow Rate FiO2 05/29/16 08:43 37.1 88 18 98 2.0 05/29/16 08:30 Nasal Cannula 2.0 05/29/16 07:33 37.1 88 18 120/70 98 1.0 05/29/16 02:31 36.5 91 18 123/69 Room Air 05/28/16 21:58 89 20 113/70 93 Room Air 05/28/16 20:04 82 22 124/77 91 Room Air 05/28/16 18:35 89 05/28/16 17:45 94 20 128/72 97 Room Air Physical Exam General Appearance: WD/WN, + mild distress Neck: supple, no JVD Respiratory/Chest: chest non-tender, lungs clear, + decreased breath sounds ( bases) Cardiovascular: regular rate, rhythm, + systolic murmur Abdomen: + abnormal bowel sounds, + distended, + guarding, + tenderness Extremities: no pedal edema, no calf tenderness Neurologic/Psychiatric: alert, oriented x 3 Laboratory Results Last 24 Hours Test 05/28/16 17:30 05/29/16 05:45 05/29/16 13:57 05/29/16 14:15 White Blood Count 4.73 K/uL 4.71 K/uL Red Blood Count 3.42 M/uL 3.23 M/uL Hemoglobin 11.2 g/dL 10.5 g/dL Hematocrit 33.4 % 32.0 % Mean Corpuscular Volume 97.7 fL 99.1 fL Mean Corpuscular Hemoglobin 32.7 pg 32.5 pg Mean Corpuscular Hemoglobin Concent 33.5 g/dl 32.8 g/dl Platelet Count 127 K/uL 111 K/uL Mean Platelet Volume 10.3 fL 9.8 fL Neutrophils (%) (Auto) 80.0 % Lymphocytes (%) (Auto) 11.8 % Monocytes (%) (Auto) 7.6 % Eosinophils (%) (Auto) 0.2 % Basophils (%) (Auto) 0.2 % Neutrophils # (Auto) 3.78 K/uL Lymphocytes # (Auto) 0.56 K/uL Monocytes # (Auto) 0.36 K/uL Eosinophils # (Auto) 0.01 K/uL Basophils # (Auto) 0.01 K/uL RDW Standard Deviation 57.2 fL 57.9 fL RDW Coefficient of Variation 16.2 % 16.0 % Immature Granulocyte % (Auto) 0.2 % Immature Granulocyte # (Auto) 0.01 K/uL Hyposegmented Neutrophils 1+ Prothrombin Time 12.2 SECONDS 12.3 SECONDS Prothromb Time International Ratio 1.1 1.1 Activated Partial Thromboplast Time 29.6 SECONDS 31.7 SECONDS Partial Thromboplastin Ratio 1.1 1.2 Sodium Level 132 mmol/L 133 mmol/L Potassium Level 4.2 mmol/L 3.8 mmol/L Chloride Level 95 mmol/L 99 mmol/L Carbon Dioxide Level 23 mmol/L 24 mmol/L Anion Gap 14.0 mmol/L 10.0 mmol/L Blood Urea Nitrogen 27 mg/dl 21 mg/dl Creatinine 0.87 mg/dl 0.66 mg/dl Est Creatinine Clear Calc Drug Dose 74.3 ml/min 98.0 ml/min Estimated GFR () 94.5 105.8 Estimated GFR (Non- 81.5 91.3 BUN/Creatinine Ratio 31.5 32.4 Random Glucose 111 mg/dl 86 mg/dl Calcium Level 8.7 mg/dl 8.2 mg/dl Total Bilirubin 0.7 mg/dl 0.5 mg/dl Direct Bilirubin 0.3 mg/dl Aspartate Amino Transf (AST/SGOT) 24 U/L 19 U/L Alanine Aminotransferase (ALT/SGPT) 18 U/L 16 U/L Alkaline Phosphatase 111 U/L 93 U/L Troponin I < 0.015 ng/ml 0.463 ng/ml Total Protein 8.0 gm/dl 7.4 gm/dl Albumin 3.6 gm/dl 3.1 gm/dl Lipase 115 U/L Globulin 4.3 gm/dl Albumin/Globulin Ratio 0.7 Creatine Kinase MB Ratio Assessment and Plan 80 M pt admired with concern for bowel obstruction with history of chrons and bowel resections in the past, but has CAD and also developed ECG changes and elevated troponin Elevated troponin,moved to [facility] ,serial enzymes and will have cardiology consult , check repeat echo for RWMA Bowel obstruction, wiill keep npo if excessive pain and vomiting consider ngt Chronic anemia not in transfusion range as near 10 gms Chronic systolic CHF s/p CABG carvedilol, and lisinopril, hold lasis as is NPO and getting ivf, care with some mention of EF in 20% range also clincally noted to have almost 5 cm AAA COPD clinically stable on albuterol and spiriva DVt prophylaxis lovenox full code
--- NOTE | 2016-05-29 15:10 | ECHOCARDIOGRAM REPORT ---
*NOTICE TO RECEIVING [employer]Y This information is strictly Confidential and protected under [place] law. [place] law prohibits you from making any further disclosure of this information unless further disclosure is expressly permitted by the written consent of the person to whom it pertains or is authorized by law. A general authorization for the release of medical or other information is not sufficient for this purpose. Hospital accepts no responsibility if the information is made available to any other person, INCLUDING THE PATIENT. Interpretation Summary * Name: ENRIQUE QUINN Study Date: 05/29/2016 08:40 AM BP: 120/70 mmHg * Patient Location: [id number]\[id number]\1 HR: 88 * : 1935 (M/d/yyyy) Gender: Male Height: 72 in * Age: 80 yrs Ethnicity: [place] Weight: 171 lb * Ordering Physician: Markel Ayon * Performed By: Hillary Raya RDCS * * Reason For Study: Chest pain * BSA: 2.0 m2 * -- Conclusions -- * Left ventricular systolic function is normal. * No regional wall motion abnormalities noted. * Ejection Fraction = 55-60%. * There is mild mitral regurgitation. * There is mild tricuspid regurgitation. Procedure Details * A complete two-dimensional transthoracic echocardiogram was performed (2D, M-mode, Doppler and color flow Doppler). Left Ventricle * The left ventricle is normal in size. * There is normal left ventricular wall thickness. * Ejection Fraction = 55-60%. * Left ventricular systolic function is normal. * No regional wall motion abnormalities noted. Right Ventricle * The right ventricle is not well visualized. * The right ventricular systolic function is normal as assessed by tricuspid annular plane systolic excursion (TAPSE) (normal >1.5 cm). Atria * The left atrium is mildly dilated. * Right atrial size is normal. * There is no evidence of atrial septal defect, but resolution does not allow assessment for a patent foramen ovale. Mitral Valve * The mitral valve is grossly normal. * There is no mitral valve stenosis. * There is mild mitral regurgitation. Tricuspid Valve * The tricuspid valve is not well visualized, but is grossly normal. * There is mild tricuspid regurgitation. Aortic Valve * The aortic valve is trileaflet. * The aortic valve opens well. * No hemodynamically significant valvular aortic stenosis. * There is no significant aortic regurgitation. Pulmonic Valve * The pulmonary valve is not well seen, but the Doppler examination is normal without significant regurgitation or stenosis. * There is no pulmonic valvular regurgitation. Great Vessels * The aortic root is normal size. * The pulmonary is not well visualized. Pericardium/Pleural * There is no pericardial effusion. Great Vessels * Normal inferior vena cava size and collapsability with sniff indicates a normal right atrial pressure of 3 mmHg MMode 2D Measurements and Calculations IVSd 1.0 cm LVIDd 6.0 cm LVIDs 4.3 cm LVPWd 0.90 cm IVS/LVPW 1.1 FS 28.2 % EDV(Teich) 183.3 ml ESV(Teich) 85.0 ml EF(Teich) 53.6 % EDV(cubed) 221.3 ml ESV(cubed) 81.9 ml EF(cubed) 63.0 % LV mass(C)d 237.2 grams LV mass(C)dI 119.0 grams/m\S\2 CO(Teich) 7.2 l/min CI(Teich) 3.6 l/min/m\S\2 SV(Teich) 98.3 ml SI(Teich) 49.3 ml/m\S\2 CO(cubed) 10.2 l/min CI(cubed) 5.1 l/min/m\S\2 SV(cubed) 139.4 ml SI(cubed) 69.9 ml/m\S\2 Ao root diam 3.8 cm Ao root area 11.4 cm\S\2 ACS 2.3 cm asc Aorta Diam 3.1 cm LVOT diam 2.1 cm LVOT area 3.5 cm\S\2 LVAd ap4 36.2 cm\S\2 LVLd ap4 9.3 cm EDV(MOD-sp4) 118.0 ml LVAs ap4 22.7 cm\S\2 LVLs ap4 8.1 cm ESV(MOD-sp4) 53.0 ml EF(MOD-sp4) 55.1 % LVAd ap2 31.0 cm\S\2 LVLd ap2 9.0 cm EDV(MOD-sp2) 90.0 ml LVAs ap2 18.8 cm\S\2 LVLs ap2 7.7 cm ESV(MOD-sp2) 40.0 ml EF(MOD-sp2) 55.6 % CO(MOD-sp4) 4.7 l/min CI(MOD-sp4) 2.4 l/min/m\S\2 SV(MOD-sp4) 65.0 ml SI(MOD-sp4) 32.6 ml/m\S\2 CO(MOD-sp2) 3.7 l/min CI(MOD-sp2) 1.8 l/min/m\S\2 SV(MOD-sp2) 50.0 ml SI(MOD-sp2) 25.1 ml/m\S\2 Doppler Measurements and Calculations MV E max seth 57.8 cm/sec MV A max seth 79.5 cm/sec MV E/A 0.73 MV dec time 0.24 sec Ao V2 max 97.7 cm/sec Ao max PG 3.8 mmHg Ao max PG (full) 1.3 mmHg STEPHANIE(V,A) 2.9 cm\S\2 STEPHANIE(V,D) 2.9 cm\S\2 LV V1 max PG 2.5 mmHg LV V1 max 79.8 cm/sec PA V2 max 68.6 cm/sec PA max PG 1.9 mmHg PA acc slope 263.4 cm/sec\S\2 PA acc time 0.12 sec TR max seth 254.9 cm/sec PA pr(Accel) 26.7 mmHg
[2016-05-29 15:25] LABS: CKMB/CK RATIO 5.5 (0-3.0)
[2016-05-29] MEDS: SODIUM CHLORIDE 0.9% 1000ML 1,000 ML IV SCH (16:42)
[2016-05-29] MEDS ORDERED: HOME MED ADMINISTRATION ONE (17:00)
[2016-05-29 19:25] VITALS: BP 121/78; PULSE 105; TEMP 36.9; O2SAT 95
[2016-05-29] MEDS: UREA EXT SCH (20:46)
[2016-05-29] MEDS: CALCITONIN SALMON NA 200 IU/AC 3.7 ML BTL SCH (20:46)
[2016-05-29] MEDS: TRIAMCINOLONE 0.1% EXT SCH (20:46)
[2016-05-29] MEDS: SIMVASTATIN 40 MG TAB PO SCH (20:48)
[2016-05-29 20:49] LABS: URINE APPEARANCE CLEAR (CLEAR); URINE BILIRUBIN NEG (NEG); URINE COLOR DK YELLOW; URINE NITRITE NEG (NEG); URINE PH 5.5 (4.5-7.5); UROBILINOGEN NEG (NEG); ZZUR CULT IF INDIC CLEAN CATCH NO
[2016-05-29 20:51] LABS: MANUAL MICROSCOPIC REQUIRED? NO; REVIEW REQ? NO
[2016-05-29] MEDS: D5NSS + 20MEQ KCL 1,000 ML IV SCH (21:58)
[2016-05-29 22:52] LABS: CKMB/CK RATIO 4.8 (0-3.0)
[2016-05-29] MEDS: PROMETHAZINE HCL INJ 25 MG in SODIUM CHLORIDE 0.9% 50ML 50 ML IV PRN (23:38)
[2016-05-29 23:49] VITALS: BP 112/76; PULSE 119; TEMP 37; O2SAT 94
[2016-05-30] VITALS (7 sets, daily range): BP systolic 112–131; BP diastolic 67–80; PULSE 88–97; TEMP 35.6–36.7; O2SAT 90–100
[2016-05-30] MEDS: PROMETHAZINE HCL INJ 25 MG in SODIUM CHLORIDE 0.9% 50ML 50 ML IV PRN ×2 (05:52→22:06)
[2016-05-30 07:23] LABS: HEMATOCRIT 33.1 % (42-52); MEAN CELL VOLUME 99.4 fL (80-100); MEAN CORPUSCULAR HEMOGLOBIN 32.4 pg (25-34); MEAN CORPUSCULAR HGB CONC 32.6 g/dl (32-36); MEAN PLATELET VOLUME 9.7 fL (7.4-10.4); PLATELET COUNT 124 K/uL (130-400); RED BLOOD COUNT 3.33 M/uL (4.7-6.1); WHITE BLOOD COUNT 4.36 K/uL (4.8-10.8)
[2016-05-30 07:55] LABS: BUN/CREATININE RATIO 24.9 (10-20); CALCIUM 8.3 mg/dl (8.5-10.1); CREATININE 0.63 mg/dl (0.60-1.40); POTASSIUM 3.9 mmol/L (3.5-5.1)
[2016-05-30 07:58] LABS: ALB/GLOB RATIO 0.7 (0.9-2)
[2016-05-30] MEDS: D5NSS + 20MEQ KCL 1,000 ML IV SCH ×2 (08:47→17:55)
[2016-05-30] MEDS: FLUTICASONE/SALMETEROL 250/50 (ADVAIR) 14 PUFF/1 INHALER INH SCH ×2 (08:48→20:51)
[2016-05-30] MEDS: TIOTROPIUM BROMIDE 5 PUFF/90 MCG INH INH SCH (08:49)
[2016-05-30] MEDS: ENOXAPARIN 40 MG/0.4 ML SYR SQ SCH (08:52)
[2016-05-30] MEDS: TRIAMCINOLONE 0.1% EXT SCH ×2 (09:00→20:52)
[2016-05-30] MEDS: LISINOPRIL 5 MG TAB PO SCH (09:00)
[2016-05-30] MEDS ORDERED: CALCITONIN SALMON NA 200 IU/AC 3.7 ML BTL SCH (09:00)
[2016-05-30] MEDS: CARVEDILOL 6.25 MG TAB PO SCH ×2 (09:00→20:53)
[2016-05-30] MEDS: UREA EXT SCH ×2 (09:00→20:52)
[2016-05-30] MEDS: MAGNESIUM CHLORIDE 64MG DELAYED REL TAB PO SCH ×2 (09:00→20:53)
[2016-05-30] MEDS ORDERED: OXYMETAZOLINE HCL 0.05% NA SPR 15 ML BTL ONE (10:00)
--- NOTE | 2016-05-30 11:14 | DIAGNOSTIC IMAGING REPORT ---
KUB CLINICAL HISTORY: Enteric tube placement. FINDINGS: 2 AP, portable, supine abdominal radiographs are compared to study dated 05/29/16 and correlated with abdominal CT dated 05/28/16. An enteric tube has been placed. The tip projects over the proximal stomach. The side holes are located above the diaphragm. Distended small bowel loops persist. No evidence of intraperitoneal free air is seen. There is advanced atherosclerotic calcification of the abdominal aorta. The heart is enlarged, and pacemaker leads are noted. The patient is status post midline sternotomy. The skeletal structures are osteopenic. Degenerative change and mild scoliosis are noted in the lumbar spine. IMPRESSION: 1. An enteric tube has been placed. The tip projects over the proximal stomach. The side holes are located above the diaphragm and the should be advanced. 2. Findings suggest persistent partial small bowel obstruction. Electronically signed by: Damian Pretty M.D. 05/30/2016 11:13 AM Dictated Date/Time: 05/30/2016 11:10 AM
--- NOTE | 2016-05-30 14:30 | Progress Note ---
Subjective Date of Service: May 30, 2016. Subjective pt developed some epistaxis today, maybe some flatus, still distended abdomen Problem List Medical Problems: (1) Abnormal ECG Status: Acute (2) Ileus Status: Acute (3) Nausea & vomiting Status: Acute (4) Partial small bowel obstruction Status: Acute Review of Systems Constitutional: + weakness, No chills, No fever Respiratory: No cough, No dyspnea on exertion, No shortness of breath Cardiac: No chest pain, No edema Abdomen: + constipation, + pain Musculoskeletal: No joint pain, No muscle pain Psychiatric: No anhedonism, No depression symptoms Objective Vital Signs Date Time Temp Pulse Resp B/P Pulse Ox O2 Delivery O2 Flow Rate FiO2 05/30/16 12:00 Nasal Cannula 2.0 05/30/16 11:04 35.6 95 18 115/72 90 Nasal Cannula 2.0 05/30/16 07:46 Nasal Cannula 2.0 05/30/16 07:20 36.6 97 20 131/80 94 Nasal Cannula 2.0 05/30/16 04:15 36.5 95 18 114/69 100 Nasal Cannula 2.0 05/30/16 04:05 Nasal Cannula 2.0 05/30/16 00:05 Nasal Cannula 2.0 05/29/16 23:49 37.0 119 18 112/76 94 Nasal Cannula 2.0 05/29/16 20:00 Nasal Cannula 2.0 05/29/16 19:25 36.9 105 16 121/78 95 05/29/16 16:00 Nasal Cannula 2.0 05/29/16 15:05 36.9 97 16 127/82 97 Nasal Cannula 2.0 Physical Exam General Appearance: WD/WN, + mild distress ENT: + nasal congestion Neck: no JVD Respiratory/Chest: chest non-tender, lungs clear, normal breath sounds Cardiovascular: regular rate, rhythm, + systolic murmur Abdomen: + abnormal bowel sounds, + distended, + guarding, + tenderness Extremities: no pedal edema, no calf tenderness Laboratory Results Last 24 Hours Test 05/29/16 19:55 05/29/16 21:51 05/30/16 06:47 Urine Color DK YELLOW Urine Appearance CLEAR Urine pH 5.5 Urine Specific [place] 1.020 Urine Protein TRACE Urine Glucose (UA) NEG Urine Ketones 3+ Urine Occult Blood NEG Urine Nitrite NEG Urine Bilirubin NEG Urine Urobilinogen NEG Urine Leukocyte Esterase NEG Urine WBC (Auto) 1-5 /hpf Urine RBC (Auto) 0-4 /hpf Urine Hyaline Casts (Auto) 1-5 /lpf Urine Epithelial Cells (Auto) 10-20 /lpf Urine Bacteria (Auto) NEG Total Creatine Kinase 52 U/L Creatine Kinase MB 2.5 ng/ml Creatine Kinase MB Ratio 4.8 Troponin I 0.176 ng/ml White Blood Count 4.36 K/uL Red Blood Count 3.33 M/uL Hemoglobin 10.8 g/dL Hematocrit 33.1 % Mean Corpuscular Volume 99.4 fL Mean Corpuscular Hemoglobin 32.4 pg Mean Corpuscular Hemoglobin Concent 32.6 g/dl RDW Standard Deviation 58.1 fL RDW Coefficient of Variation 16.2 % Platelet Count 124 K/uL Mean Platelet Volume 9.7 fL Sodium Level 138 mmol/L Potassium Level 3.9 mmol/L Chloride Level 101 mmol/L Carbon Dioxide Level 25 mmol/L Anion Gap 12.0 mmol/L Blood Urea Nitrogen 16 mg/dl Creatinine 0.63 mg/dl Est Creatinine Clear Calc Drug Dose 100.5 ml/min Estimated GFR () 107.9 Estimated GFR (Non- 93.1 BUN/Creatinine Ratio 24.9 Random Glucose 93 mg/dl Calcium Level 8.3 mg/dl Total Bilirubin 0.5 mg/dl Aspartate Amino Transf (AST/SGOT) 16 U/L Alanine Aminotransferase (ALT/SGPT) 15 U/L Alkaline Phosphatase 84 U/L Total Protein 7.3 gm/dl Albumin 3.1 gm/dl Globulin 4.2 gm/dl Albumin/Globulin Ratio 0.7 Assessment and Plan 80 M pt admired with concern for bowel obstruction with history of chrons and bowel resections in the past, but has CAD and also developed ECG changes and elevated troponin Elevated troponin no defined trend, normal echo, troponin trending downward epistaxis stopped with afrin nasal spray and pressure Bowel obstruction,NGT to lis , npo status Chronic anemia not in transfusion range as near 10 gms Chronic systolic CHF s/p CABG carvedilol, and lisinopril, hold lasis as is NPO and getting ivf, care with some mention of EF in 20% range also clincally noted to have almost 5 cm AAA COPD clinically stable on albuterol and spiriva DVt prophylaxis lovenox full code
[2016-05-30] MEDS: ACETAMINOPHEN IV 650 MG in EMPTY BAG 0 ML IV PRN ×2 (14:48→20:51)
--- NOTE | 2016-05-30 15:05 | Gastroenterology Progress Note ---
Progress Note Date of Service: May 30, 2016 Subjective Pt evaluation today including: conversation w/ patient, conversation w/ family (), physical exam, chart review, lab review, review of studies, review of inpatient medication list cc f/u n/v HPI Per nurse NG placed on evening shift. It was advanced prior to KUB this am and marked amoumt of coffee ground material noted. NG at 60 cm from nares so would expect with fluid ouput to be in reasonable position. Abd pain improved. Pt thinks less abd distension. No stools. apparently some epistaxis so wonder if that was etiology of coffee grounds. Review of Systems Respiratory: No shortness of breath Cardiac: No chest pain Medications Current Inpatient Medications Medications (Trade) Dose Ordered Sig/Liya Route Start Time Stop Time Status Last Admin Dose Admin Enoxaparin Sodium (Lovenox Inj) 40 mg Q24H SQ 05/29/16 09:00 06/28/16 08:59 Acetaminophen (Tylenol Tab) 650 mg Q4H PRN PO 05/28/16 21:30 06/27/16 21:29 Al Hydrox/Mg Hydrox/Simethicone (Maalox Max Susp) 15 ml Q4H PRN PO 05/28/16 21:30 06/27/16 21:29 Magnesium Hydroxide (Milk Of Magnesia Susp) 30 ml Q6H PRN PO 05/28/16 21:30 06/27/16 21:29 Albuterol (Ventolin Hfa Inhaler) 2 puffs Q6 PRN INH 05/28/16 21:30 06/27/16 21:29 Carvedilol (Coreg Tab) 6.25 mg BID PO 05/29/16 08:00 06/28/16 08:59 05/29/16 20:47 6.25 MG Docusate Sodium (coLACE CAP) 100 mg BID PRN PO 05/28/16 21:30 06/27/16 21:29 Salmeterol Xinafoate/ Fluticasone (Advair Diskus 250/50 Inh) 1 puff Q12 INH 05/29/16 09:00 06/28/16 08:59 05/30/16 08:48 1 PUFF Folic Acid (Folvite Tab) 1 mg DAILY PO 05/29/16 08:00 06/28/16 08:59 Lisinopril (Zestril Tab) 5 mg DAILY PO 05/29/16 08:00 06/28/16 08:59 Simvastatin (Zocor Tab) 40 mg QPM PO 05/29/16 21:00 06/28/16 20:59 05/29/16 20:48 40 MG Tiotropium [place] (Spiriva Handihaler Inhaler) 1 puff DAILY INH 05/29/16 08:00 06/28/16 08:59 05/30/16 08:49 1 PUFF Magnesium Chloride (Slow-Mag Tab) 64 mg BID PO 05/29/16 08:00 06/28/16 08:59 05/29/16 20:46 64 MG Nitroglycerin (Nitrostat Tab) 0.4 mg UD PRN SL 05/29/16 08:00 06/28/16 07:59 Non-Formulary Medication (Non-Formulary Patient'S Own Med) 1 ea BID EXT 05/29/16 21:00 06/28/16 20:59 05/30/16 09:00 1 EA Calcitonin [place] 1 spray 1 spray HS NA 05/29/16 21:00 06/28/16 20:59 05/29/16 20:46 1 SPRAY Potassium Chloride/Dextrose/ Sod Cl (D5nss + 20meq KCl) 1,000 ml @ 100 mls/hr Q10H IV 05/29/16 21:30 06/28/16 21:29 05/30/16 08:47 100 MLS/HR Ondansetron HCl 4 mg 4 mg Q6H PRN IV 05/29/16 23:30 06/28/16 23:29 Promethazine HCl 25 mg/Sodium Chloride 51 ml @ 204 mls/hr Q6H PRN IV 05/29/16 23:30 06/28/16 23:29 05/30/16 05:52 204 MLS/HR Acetaminophen/ Empty Bag (Ofirmev IV/ Empty Iv Bag 100ml) 65 ml @ 260 mls/hr Q6H PRN IV 05/30/16 14:30 06/29/16 14:29 Objective Vital Signs Date Time Temp Pulse Resp B/P Pulse Ox O2 Delivery O2 Flow Rate FiO2 05/30/16 12:00 Nasal Cannula 2.0 05/30/16 11:04 35.6 95 18 115/72 90 Nasal Cannula 2.0 2/11/17 07:46 Nasal Cannula 2.0 05/30/16 07:20 36.6 97 20 131/80 94 Nasal Cannula 2.0 05/30/16 04:15 36.5 95 18 114/69 100 Nasal Cannula 2.0 05/30/16 04:05 Nasal Cannula 2.0 05/30/16 00:05 Nasal Cannula 2.0 05/29/16 23:49 37.0 119 18 112/76 94 Nasal Cannula 2.0 05/29/16 20:00 Nasal Cannula 2.0 05/29/16 19:25 36.9 105 16 121/78 95 05/29/16 16:00 Nasal Cannula 2.0 05/29/16 15:05 36.9 97 16 127/82 97 Nasal Cannula 2.0 Physical Exam General Appearance: WD/WN, no apparent distress Respiratory/Chest: lungs clear, no respiratory distress Cardiovascular: no murmur Abdomen: + pertinent finding (decreased bowel sounds, moderately distended and tympanitic, no guarding nor rebound. ) Laboratory Results Last 24 Hours Test 05/29/16 19:55 05/29/16 21:51 05/30/16 06:47 Urine Color DK YELLOW Urine Appearance CLEAR Urine pH 5.5 Urine Specific [place] 1.020 Urine Protein TRACE Urine Glucose (UA) NEG Urine Ketones 3+ Urine Occult Blood NEG Urine Nitrite NEG Urine Bilirubin NEG Urine Urobilinogen NEG Urine Leukocyte Esterase NEG Urine WBC (Auto) 1-5 /hpf Urine RBC (Auto) 0-4 /hpf Urine Hyaline Casts (Auto) 1-5 /lpf Urine Epithelial Cells (Auto) 10-20 /lpf Urine Bacteria (Auto) NEG Total Creatine Kinase 52 U/L Creatine Kinase MB 2.5 ng/ml Creatine Kinase MB Ratio 4.8 Troponin I 0.176 ng/ml White Blood Count 4.36 K/uL Red Blood Count 3.33 M/uL Hemoglobin 10.8 g/dL Hematocrit 33.1 % Mean Corpuscular Volume 99.4 fL Mean Corpuscular Hemoglobin 32.4 pg Mean Corpuscular Hemoglobin Concent 32.6 g/dl RDW Standard Deviation 58.1 fL RDW Coefficient of Variation 16.2 % Platelet Count 124 K/uL Mean Platelet Volume 9.7 fL Sodium Level 138 mmol/L Potassium Level 3.9 mmol/L Chloride Level 101 mmol/L Carbon Dioxide Level 25 mmol/L Anion Gap 12.0 mmol/L Blood Urea Nitrogen 16 mg/dl Creatinine 0.63 mg/dl Est Creatinine Clear Calc Drug Dose 100.5 ml/min Estimated GFR () 107.9 Estimated GFR (Non- 93.1 BUN/Creatinine Ratio 24.9 Random Glucose 93 mg/dl Calcium Level 8.3 mg/dl Total Bilirubin 0.5 mg/dl Aspartate Amino Transf (AST/SGOT) 16 U/L Alanine Aminotransferase (ALT/SGPT) 15 U/L Alkaline Phosphatase 84 U/L Total Protein 7.3 gm/dl Albumin 3.1 gm/dl Globulin 4.2 gm/dl Albumin/Globulin Ratio 0.7 Assessment and Plan bowel obstruction---continue NGT with LIS and hope for resolution. appreciate surgery consult coffee ground in NG--not sure if from epistaxis but will cover for PUD with protonix Crohns--do not feel this a flare and will not treat with steroids. n/v--secondary to above NG in place now. abd pain--secondary to above--improved. cirrhosis--possibly from senior living methotrexate used for his lupus (off Methotrexate since 2014) --nothing acute to do
[2016-05-30] MEDS: PANTOprazole INJ 40 MG in SYRINGE 0 ML IV SCH ×2 (16:23→20:52)
[2016-05-30] MEDS: ONDANSETRON INJ 2 MG/ML 2 ML VIAL IV PRN (18:14)
[2016-05-30] MEDS: CALCITONIN SALMON NA 200 IU/AC 3.7 ML BTL SCH (20:52)
[2016-05-30] MEDS: SIMVASTATIN 40 MG TAB PO SCH (20:53)
[2016-05-30] MEDS ORDERED: LORAZEPAM INJ 0.5 MG in SYRINGE 0.25 ML IV STA (23:43)
[2016-05-30] MEDS ORDERED: LORAZEPAM 2 MG/ML 1 ML VIAL IV PRN (23:45)
[2016-05-30] MEDS ORDERED: LORAZEPAM INJ 0.5 MG in SYRINGE 0.75 ML IV PRN (23:45)
[2016-05-31] VITALS (12 sets, daily range): BP systolic 101–138; BP diastolic 66–87; PULSE 81–94; TEMP 36.5–36.9; O2SAT 88–99
[2016-05-31] MEDS: ACETAMINOPHEN IV 650 MG in EMPTY BAG 0 ML IV PRN ×2 (04:09→13:59)
[2016-05-31] MEDS: D5NSS + 20MEQ KCL 1,000 ML IV SCH ×3 (04:10→23:55)
[2016-05-31 06:24] LABS: HEMATOCRIT 31.1 % (42-52); MEAN CELL VOLUME 100.3 fL (80-100); MEAN CORPUSCULAR HEMOGLOBIN 32.9 pg (25-34); MEAN CORPUSCULAR HGB CONC 32.8 g/dl (32-36); MEAN PLATELET VOLUME 9.6 fL (7.4-10.4); PLATELET COUNT 115 K/uL (130-400); WHITE BLOOD COUNT 4.17 K/uL (4.8-10.8)
[2016-05-31 06:52] LABS: BUN/CREATININE RATIO 23.2 (10-20); CALCIUM 8.6 mg/dl (8.5-10.1); CREATININE 0.57 mg/dl (0.60-1.40)
[2016-05-31 06:55] LABS: ALB/GLOB RATIO 0.7 (0.9-2)
[2016-05-31] MEDS: FLUTICASONE/SALMETEROL 250/50 (ADVAIR) 14 PUFF/1 INHALER INH SCH ×2 (08:42→20:57)
[2016-05-31] MEDS: TIOTROPIUM BROMIDE 5 PUFF/90 MCG INH INH SCH (08:43)
[2016-05-31] MEDS: ONDANSETRON INJ 2 MG/ML 2 ML VIAL IV PRN (08:43)
[2016-05-31] MEDS: TRIAMCINOLONE 0.1% EXT SCH ×2 (08:43→20:59)
[2016-05-31] MEDS: UREA EXT SCH ×2 (08:43→20:59)
[2016-05-31] MEDS: PANTOprazole INJ 40 MG in SYRINGE 0 ML IV SCH ×2 (08:44→20:56)
[2016-05-31] MEDS: ENOXAPARIN 40 MG/0.4 ML SYR SQ SCH (08:44)
[2016-05-31] MEDS: LISINOPRIL 5 MG TAB PO SCH (09:00)
[2016-05-31] MEDS: MAGNESIUM CHLORIDE 64MG DELAYED REL TAB PO SCH ×2 (09:00→20:51)
[2016-05-31] MEDS: CARVEDILOL 6.25 MG TAB PO SCH (10:02)
--- NOTE | 2016-05-31 13:09 | Progress Note ---
Subjective Date of Service: May 31, 2016. Subjective pt is frustrated, still no flatus or stool, mild nausea and abdominal distension , no further epistaxis, having some runs of tachycardia, but did have coreg held by nursing , it is resumed Problem List Medical Problems: (1) Abnormal ECG Status: Acute (2) Ileus Status: Acute (3) Nausea & vomiting Status: Acute (4) Partial small bowel obstruction Status: Acute Review of Systems Constitutional: No chills, No fever Respiratory: No cough, No shortness of breath Cardiac: No chest pain, No edema, No orthopnea Abdomen: + constipation, + nausea, No diarrhea, No pain, No vomiting Male : No dysuria, No urinary frequency Objective Vital Signs Date Time Temp Pulse Resp B/P Pulse Ox O2 Delivery O2 Flow Rate FiO2 05/31/16 12:00 Nasal Cannula 2.0 05/31/16 11:58 36.9 81 18 112/69 97 05/31/16 08:00 Nasal Cannula 2.0 05/31/16 07:55 36.6 83 18 111/70 99 3.0 05/31/16 04:00 97 Nasal Cannula 2.0 05/31/16 00:23 36.5 89 18 123/77 95 Nasal Cannula 2.0 05/31/16 00:00 95 Room Air 2.0 05/30/16 20:08 36.6 88 20 112/67 90 Room Air 05/30/16 20:00 90 Room Air 05/30/16 16:00 90 Room Air 05/30/16 15:44 36.7 93 20 113/73 90 Room Air Physical Exam General Appearance: + mild distress, + thin Neck: supple, thyroid normal Respiratory/Chest: chest non-tender, lungs clear Cardiovascular: + tachycardia, + irregularly irregular Abdomen: soft, + abnormal bowel sounds, + distended, + tenderness Extremities: no pedal edema, no calf tenderness Neurologic/Psychiatric: alert, oriented x 3 Laboratory Results Last 24 Hours Test 05/31/16 05:58 White Blood Count 4.17 K/uL Red Blood Count 3.10 M/uL Hemoglobin 10.2 g/dL Hematocrit 31.1 % Mean Corpuscular Volume 100.3 fL Mean Corpuscular Hemoglobin 32.9 pg Mean Corpuscular Hemoglobin Concent 32.8 g/dl RDW Standard Deviation 58.4 fL RDW Coefficient of Variation 16.1 % Platelet Count 115 K/uL Mean Platelet Volume 9.6 fL Sodium Level 143 mmol/L Potassium Level 4.0 mmol/L Chloride Level 107 mmol/L Carbon Dioxide Level 27 mmol/L Anion Gap 9.0 mmol/L Blood Urea Nitrogen 13 mg/dl Creatinine 0.57 mg/dl Est Creatinine Clear Calc Drug Dose 109.9 ml/min Estimated GFR () 112.4 Estimated GFR (Non- 97.0 BUN/Creatinine Ratio 23.2 Random Glucose 113 mg/dl Calcium Level 8.6 mg/dl Total Bilirubin 0.4 mg/dl Aspartate Amino Transf (AST/SGOT) 15 U/L Alanine Aminotransferase (ALT/SGPT) 13 U/L Alkaline Phosphatase 74 U/L Total Protein 6.8 gm/dl Albumin 2.7 gm/dl Globulin 4.1 gm/dl Albumin/Globulin Ratio 0.7 Assessment and Plan 80 M pt admired with concern for bowel obstruction with history of chrons and bowel resections in the past, but has CAD and also developed ECG changes and elevated troponin Elevated troponin no defined trend, normal echo, troponin trending downward, usually sees DR Brown if cardiac opinion needs to be rendered epistaxis stopped with afrin nasal spray and pressure Bowel obstruction,NGT to lis , npo status, repeat x ray and labs in am 2/13 Chronic anemia not in transfusion range as near 10 gms Chronic systolic CHF s/p CABG carvedilol, and lisinopril, hold lasix as is NPO and getting ivf, care with some mention of EF in 20% range also clincally noted to have almost 5 cm AAA COPD clinically stable on albuterol and spiriva DVt prophylaxis lovenox full code
--- NOTE | 2016-05-31 13:35 | Gastroenterology Progress Note ---
Progress Note Date of Service: May 31, 2016 Subjective Pt evaluation today including: conversation w/ patient, conversation w/ family (), physical exam, chart review, review of studies, review of inpatient medication list CC f/u SBO HPI Abd remains distended but no abd pain. No N/V but NG in place. Nose bleed again today. Review of Systems Respiratory: No shortness of breath Cardiac: No chest pain Medications Current Inpatient Medications Medications (Trade) Dose Ordered Sig/Liya Route Start Time Stop Time Status Last Admin Dose Admin Enoxaparin Sodium (Lovenox Inj) 40 mg Q24H SQ 05/29/16 09:00 06/28/16 08:59 Acetaminophen (Tylenol Tab) 650 mg Q4H PRN PO 05/28/16 21:30 06/27/16 21:29 Al Hydrox/Mg Hydrox/Simethicone (Maalox Max Susp) 15 ml Q4H PRN PO 05/28/16 21:30 06/27/16 21:29 Magnesium Hydroxide (Milk Of Magnesia Susp) 30 ml Q6H PRN PO 05/28/16 21:30 06/27/16 21:29 Albuterol (Ventolin Hfa Inhaler) 2 puffs Q6 PRN INH 05/28/16 21:30 06/27/16 21:29 Carvedilol (Coreg Tab) 6.25 mg BID PO 05/29/16 08:00 06/28/16 08:59 05/31/16 10:02 6.25 MG Docusate Sodium (coLACE CAP) 100 mg BID PRN PO 05/28/16 21:30 06/27/16 21:29 Salmeterol Xinafoate/ Fluticasone (Advair Diskus 250/50 Inh) 1 puff Q12 INH 05/29/16 09:00 06/28/16 08:59 05/31/16 08:42 1 PUFF Folic Acid (Folvite Tab) 1 mg DAILY PO 05/29/16 08:00 06/28/16 08:59 Lisinopril (Zestril Tab) 5 mg DAILY PO 05/29/16 08:00 06/28/16 08:59 Simvastatin (Zocor Tab) 40 mg QPM PO 05/29/16 21:00 06/28/16 20:59 05/29/16 20:48 40 MG Tiotropium [place] (Spiriva Handihaler Inhaler) 1 puff DAILY INH 05/29/16 08:00 06/28/16 08:59 05/31/16 08:43 1 PUFF Magnesium Chloride (Slow-Mag Tab) 64 mg BID PO 05/29/16 08:00 06/28/16 08:59 05/29/16 20:46 64 MG Nitroglycerin (Nitrostat Tab) 0.4 mg UD PRN SL 05/29/16 08:00 06/28/16 07:59 Non-Formulary Medication (Non-Formulary Patient'S Own Med) 1 ea BID EXT 05/29/16 21:00 06/28/16 20:59 05/31/16 08:43 1 EA Calcitonin [place] 1 spray 1 spray HS NA 05/29/16 21:00 06/28/16 20:59 05/30/16 20:52 1 SPRAY Potassium Chloride/Dextrose/ Sod Cl (D5nss + 20meq KCl) 1,000 ml @ 100 mls/hr Q10H IV 05/29/16 21:30 06/28/16 21:29 05/31/16 04:10 100 MLS/HR Ondansetron HCl 4 mg 4 mg Q6H PRN IV 05/29/16 23:30 06/28/16 23:29 05/31/16 08:43 4 MG Promethazine HCl 25 mg/Sodium Chloride 51 ml @ 204 mls/hr Q6H PRN IV 05/29/16 23:30 06/28/16 23:29 05/30/16 22:06 204 MLS/HR Acetaminophen 650 mg/Empty Bag 65 ml @ 260 mls/hr Q6H PRN IV 05/30/16 14:30 06/29/16 14:29 05/31/16 04:09 260 MLS/HR Pantoprazole Sodium 40 mg/ Syringe 10 ml @ 5 mls/min DAILY@,21 IV 05/30/16 15:15 06/29/16 15:14 05/31/16 08:44 5 MLS/MIN Lorazepam/Syringe (Ativan Inj/ Syringe) 1 ml @ 1 mls/min HS PRN IV 05/30/16 23:45 06/29/16 23:44 Lorazepam (Ativan Inj) 0.5 mg HS PRN IV 05/30/16 23:45 06/29/16 23:44 Objective Vital Signs Date Time Temp Pulse Resp B/P Pulse Ox O2 Delivery O2 Flow Rate FiO2 05/31/16 12:00 Nasal Cannula 2.0 05/31/16 11:58 36.9 81 18 112/69 97 05/31/16 08:00 Nasal Cannula 2.0 05/31/16 07:55 36.6 83 18 111/70 99 3.0 05/31/16 04:00 97 Nasal Cannula 2.0 05/31/16 00:23 36.5 89 18 123/77 95 Nasal Cannula 2.0 05/31/16 00:00 95 Room Air 2.0 05/30/16 20:08 36.6 88 20 112/67 90 Room Air 05/30/16 20:00 90 Room Air 05/30/16 16:00 90 Room Air 05/30/16 15:44 36.7 93 20 113/73 90 Room Air Physical Exam General Appearance: WD/WN, no apparent distress Respiratory/Chest: lungs clear, no respiratory distress Cardiovascular: no murmur Abdomen: non tender, + pertinent finding (abdomen distended and tymanitic, no guarding nor rebound. ) Laboratory Results Last 24 Hours Test 05/31/16 05:58 White Blood Count 4.17 K/uL Red Blood Count 3.10 M/uL Hemoglobin 10.2 g/dL Hematocrit 31.1 % Mean Corpuscular Volume 100.3 fL Mean Corpuscular Hemoglobin 32.9 pg Mean Corpuscular Hemoglobin Concent 32.8 g/dl RDW Standard Deviation 58.4 fL RDW Coefficient of Variation 16.1 % Platelet Count 115 K/uL Mean Platelet Volume 9.6 fL Sodium Level 143 mmol/L Potassium Level 4.0 mmol/L Chloride Level 107 mmol/L Carbon Dioxide Level 27 mmol/L Anion Gap 9.0 mmol/L Blood Urea Nitrogen 13 mg/dl Creatinine 0.57 mg/dl Est Creatinine Clear Calc Drug Dose 109.9 ml/min Estimated GFR () 112.4 Estimated GFR (Non- 97.0 BUN/Creatinine Ratio 23.2 Random Glucose 113 mg/dl Calcium Level 8.6 mg/dl Total Bilirubin 0.4 mg/dl Aspartate Amino Transf (AST/SGOT) 15 U/L Alanine Aminotransferase (ALT/SGPT) 13 U/L Alkaline Phosphatase 74 U/L Total Protein 6.8 gm/dl Albumin 2.7 gm/dl Globulin 4.1 gm/dl Albumin/Globulin Ratio 0.7 Assessment and Plan bowel obstruction---continue NGT with LIS and hope for resolution. appreciate surgery consult. Discussed with DR Ayon recommend sugbertin seeing patient again since no clinical improvement so Dr Ayon states he will call them. coffee ground in NG--not sure if from epistaxis but will cover for PUD with protonix Crohns--do not feel this a flare and will not treat with steroids. n/v--secondary to above NG in place now. abd pain--secondary to above--improved. cirrhosis--possibly from skilled nursing methotrexate used for his lupus (off Methotrexate since 2014) --nothing acute to do I am going off service today at [address] Mullen assuming GI care then.
[2016-05-31] MEDS ORDERED: METOPROLOL TARTRATE 1 MG/ML VIAL IV PRN (14:30)
[2016-05-31] MEDS: METOPROLOL TARTRATE 1 MG/ML VIAL IV. SCH ×2 (16:13→21:00)
[2016-05-31] MEDS: PROMETHAZINE HCL INJ 25 MG in SODIUM CHLORIDE 0.9% 50ML 50 ML IV PRN ×2 (18:32→23:55)
[2016-05-31] MEDS: SIMVASTATIN 40 MG TAB PO SCH (20:52)
[2016-05-31] MEDS: CALCITONIN SALMON NA 200 IU/AC 3.7 ML BTL SCH (20:55)
[2016-05-31] MEDS ORDERED: BIOFREEZE EXT PRN (23:45)
[2016-06-01] VITALS (7 sets, daily range): BP systolic 107–128; BP diastolic 65–87; PULSE 78–86; TEMP 36.4–36.8; O2SAT 93–97
[2016-06-01] MEDS: METOPROLOL TARTRATE 1 MG/ML VIAL IV. SCH ×4 (03:21→20:48)
[2016-06-01 05:38] LABS: HEMATOCRIT 31.7 % (42-52); MEAN CELL VOLUME 101.6 fL (80-100); MEAN CORPUSCULAR HEMOGLOBIN 31.7 pg (25-34); MEAN CORPUSCULAR HGB CONC 31.2 g/dl (32-36); MEAN PLATELET VOLUME 9.3 fL (7.4-10.4); PLATELET COUNT 125 K/uL (130-400); RED BLOOD COUNT 3.12 M/uL (4.7-6.1); WHITE BLOOD COUNT 4.58 K/uL (4.8-10.8)
[2016-06-01 06:09] LABS: BUN/CREATININE RATIO 24.1 (10-20); CALCIUM 8.1 mg/dl (8.5-10.1); CREATININE 0.5 mg/dl (0.60-1.40); POTASSIUM 4.3 mmol/L (3.5-5.1)
[2016-06-01 06:12] LABS: ALB/GLOB RATIO 0.7 (0.9-2)
[2016-06-01] MEDS: MAGNESIUM CHLORIDE 64MG DELAYED REL TAB PO SCH ×2 (08:17→21:00)
[2016-06-01] MEDS: UREA EXT SCH ×2 (08:17→20:49)
[2016-06-01] MEDS: FLUTICASONE/SALMETEROL 250/50 (ADVAIR) 14 PUFF/1 INHALER INH SCH ×2 (08:17→20:49)
[2016-06-01] MEDS: TRIAMCINOLONE 0.1% EXT SCH ×2 (08:17→20:49)
[2016-06-01] MEDS: PANTOprazole INJ 40 MG in SYRINGE 0 ML IV SCH ×2 (08:17→20:48)
[2016-06-01] MEDS: LISINOPRIL 5 MG TAB PO SCH (08:17)
[2016-06-01] MEDS: ONDANSETRON INJ 2 MG/ML 2 ML VIAL IV PRN ×2 (08:46→19:22)
--- NOTE | 2016-06-01 10:03 | DIAGNOSTIC IMAGING REPORT ---
ABDOMEN 2 VIEWS CLINICAL HISTORY: survey progressive sob obstruction COMPARISON STUDY: No previous studies for comparison. FINDINGS: Similar findings consistent with a distal partial small bowel obstruction. Unchanging calcification lower pole right kidney. Unchanging gas and fecal material within the colon. IMPRESSION: Unchanging bowel pattern consistent with partial small bowel obstruction. Electronically signed by: Randy Swann M.D. 06/01/2016 10:02 AM Dictated Date/Time: 06/01/2016 9:52 AM
[2016-06-01] MEDS: TIOTROPIUM BROMIDE 5 PUFF/90 MCG INH INH SCH (10:25)
[2016-06-01] MEDS: D5NSS + 20MEQ KCL 1,000 ML IV SCH ×2 (10:25→19:46)
--- NOTE | 2016-06-01 15:43 | PROGRESS NOTE ---
DATE: 06/01/2016 SUBJECTIVE: The patient continues to remain distended. Objectively, the patient underwent a KUB today which shows significant abdominal distention with small bowel with air fluid levels. The patient reports he has not had a bowel movement or passed any gas in the last 24 hours. He has been in the hospital since evening and he has really has not shown any improvement. Also of concern is his heart rate is 140. Will plan on getting a 12-lead EKG. His blood pressure is normal; however. His troponins were elevated when he came in the hospital a few days ago. PHYSICAL EXAMINATION ABDOMEN: Distended. He has a midline scar, it is tympanitic, there is no absent bowel sounds. IMPRESSION: The patient appears to have a small-bowel obstruction that is not improving. Because of the rapid onset of symptoms, I suspect that this is probably from adhesions rather than active Crohn disease. He is not having any gas or bowel movements in the last 24 hours. We recommend that surgeons reevaluate the situation to determine if a surgical intervention is necessary. Also I plan on getting a 12-lead EKG due to his rapid heart rate.
[2016-06-01] MEDS: ACETAMINOPHEN 325 MG TAB PO PRN (19:23)
--- NOTE | 2016-06-01 20:45 | Hospitalist Progress Note ---
Hospitalist Progress Note Date of Service Jun 01, 2016. Subjective Pt evaluation today including: conversation w/ patient, physical exam, chart review, lab review, review of studies, review of inpatient medication list PO Intake: NPO Voiding: no voiding problems Pt has not eaten in 6 days. No passing of flatus and feels abd discomfort but not pain as bad as what brought him in last week. ECG here today ordered by GI was reviewed. Pt denies vomiting. He does state that if he needs to have surgery for KILO, then he would like to go to [facility] [place] his family is all close to there. Constitutional: No fever Cardiovascular: No chest pain Abdomen: + constipation, + pain, No nausea, No vomiting Objective Vital Signs Date Time Temp Pulse Resp B/P Pulse Ox O2 Delivery O2 Flow Rate FiO2 06/01/16 19:53 36.4 84 22 126/87 95 Nasal Cannula 2.0 06/01/16 16:00 Nasal Cannula 2.0 06/01/16 15:35 36.8 78 16 118/85 95 3.0 06/01/16 14:34 83 128/75 06/01/16 14:33 83 128/75 06/01/16 12:15 Nasal Cannula 2.0 06/01/16 08:20 Nasal Cannula 2.0 06/01/16 08:17 86 127/76 06/01/16 07:31 36.7 86 20 127/76 96 2.0 06/01/16 04:00 93 Nasal Cannula 2.0 06/01/16 03:58 36.4 81 16 107/65 97 2.0 06/01/16 03:21 94 138/84 06/01/16 00:00 93 Nasal Cannula 2.0 05/31/16 23:19 36.5 94 18 138/84 93 Nasal Cannula 2.0 05/31/16 22:12 88 136/87 94 Nasal Cannula 2.0 05/31/16 21:00 75 134/70 Physical Exam General Appearance: WD/WN, no apparent distress Eyes: normal inspection, sclerae normal ENT: hearing grossly normal Respiratory/Chest: lungs clear, normal breath sounds, no respiratory distress, no accessory muscle use Cardiovascular: regular rate, rhythm, no edema, no gallop, no murmur Abdomen: non tender, + abnormal bowel sounds (high pitched but active), + distended Extremities: non-tender, + pertinent finding (digital ulcerations on all toes with purplish discoloration) Neurologic/Psychiatric: alert, normal mood/affect, oriented x 3 Skin: normal color, warm/dry, no rash Laboratory Results Last 24 Hours Test 06/01/16 05:00 White Blood Count 4.58 K/uL Red Blood Count 3.12 M/uL Hemoglobin 9.9 g/dL Hematocrit 31.7 % Mean Corpuscular Volume 101.6 fL Mean Corpuscular Hemoglobin 31.7 pg Mean Corpuscular Hemoglobin Concent 31.2 g/dl RDW Standard Deviation 58.7 fL RDW Coefficient of Variation 15.9 % Platelet Count 125 K/uL Mean Platelet Volume 9.3 fL Sodium Level 143 mmol/L Potassium Level 4.3 mmol/L Chloride Level 107 mmol/L Carbon Dioxide Level 28 mmol/L Anion Gap 8.0 mmol/L Blood Urea Nitrogen 12 mg/dl Creatinine 0.50 mg/dl Est Creatinine Clear Calc Drug Dose 125.3 ml/min Estimated GFR () 118.6 Estimated GFR (Non- 102.4 BUN/Creatinine Ratio 24.1 Random Glucose 107 mg/dl Calcium Level 8.1 mg/dl Total Bilirubin 0.4 mg/dl Aspartate Amino Transf (AST/SGOT) 14 U/L Alanine Aminotransferase (ALT/SGPT) 12 U/L Alkaline Phosphatase 69 U/L Total Protein 6.6 gm/dl Albumin 2.7 gm/dl Globulin 3.9 gm/dl Albumin/Globulin Ratio 0.7 Assessment and Plan 80 M pt admitted with concern for bowel obstruction with history of Crohn's and two bowel resections in the past, but has CAD and also developed ECG changes and elevated troponin. Bowel obstruction,NGT to LIS but fell out on 06/01 and not replaced , npo status , repeat x ray 06/01 shows persistently dilated loops of bowel c/w PSBO and with some pain. -advised replacing NGT to LIS -need to f/u with SUrgery for their opinion on if needs surgery -if does need Surgery, pt would like transfer to [facility] to be closer to family that can care for him upon discharge plus his Vascular Surgeon is there and his other records -needs PICC line and to start TPN tomorrow as has not eaten in 6 days Elevated troponin mild and stable, troponin trending downward, likely demand ischemia, ECG with lateral ST and T wave changes improved on repeat ECGs. H/O CABG. Chronic systolic CHF historically but ECHO this admission as above with normal EF --continue lisinopril, hold lasix as is NPO and getting ivf, continue metoprolol IV for now ECHO showed: * Left ventricular systolic function is normal. * No regional wall motion abnormalities noted. * Ejection Fraction = 55-60%. * There is mild mitral regurgitation. * There is mild tricuspid regurgitation -usually sees DR Brown if cardiac opinion needs to be rendered Epistaxis stopped with afrin nasal spray and pressure Chronic anemia not in transfusion range as near 10 gms 5.2 cm AAA--> scheduled for repair in the next month with Dr. Obando at [facility] COPD clinically stable on albuterol and spiriva DVt prophylaxis lovenox full code
[2016-06-01] MEDS: CALCITONIN SALMON NA 200 IU/AC 3.7 ML BTL SCH (20:49)
[2016-06-01] MEDS: SIMVASTATIN 40 MG TAB PO SCH (21:00)
[2016-06-01] MEDS ORDERED: CHLORASEPTIC 1.4% SOLN 180 ML BTL MT PRN (21:15)
[2016-06-02 00:24] VITALS: BP 127/71; PULSE 83; TEMP 37; O2SAT 95
[2016-06-02] MEDS: METOPROLOL TARTRATE 1 MG/ML VIAL IV. SCH ×4 (02:53→21:45)
[2016-06-02 03:00] VITALS: BP 120/68; PULSE 98; TEMP 36.9; O2SAT 93
[2016-06-02 03:41] LABS: HEMATOCRIT 30.4 % (42-52); MEAN CELL VOLUME 99.3 fL (80-100); MEAN CORPUSCULAR HEMOGLOBIN 32.4 pg (25-34); MEAN CORPUSCULAR HGB CONC 32.6 g/dl (32-36); PLATELET COUNT 114 K/uL (130-400); RED BLOOD COUNT 3.06 M/uL (4.7-6.1); WHITE BLOOD COUNT 3.87 K/uL (4.8-10.8)
[2016-06-02 03:49] LABS: INR 1.4 (0.9-1.1); PROTHROMBIN TIME (PATIENT) 15.5 SECONDS (9.0-12.0)
[2016-06-02 04:06] LABS: BUN/CREATININE RATIO 19.8 (10-20); CALCIUM 8.3 mg/dl (8.5-10.1); CREATININE 0.54 mg/dl (0.60-1.40); MAGNESIUM 1.6 mg/dl (1.8-2.4)
[2016-06-02 04:10] LABS: CHOLESTEROL/HDL RATIO 2.1; PHOSPHORUS 3.1 mg/dl (2.5-4.9)
[2016-06-02 04:36] LABS: BASO % 0.3 %; BASO ABS # 0.01 K/uL (0-0.2); COMPLETE YES; EOS % 0.5 %; LYMPH % 24.3 %; LYMPH ABS # 0.94 K/uL (1.2-3.4); MONO % 13.4 %; NEUT % 60.5 %
[2016-06-02] MEDS: ACETAMINOPHEN IV 650 MG in EMPTY BAG 0 ML IV PRN (04:52)
[2016-06-02] MEDS: D5NSS + 20MEQ KCL 1,000 ML IV SCH ×2 (05:20→16:25)
[2016-06-02] MEDS: MAGNESIUM SULFATE 1GM / D5W 1 GM in PREMIXED IN D5W 100 ML IV SCH ×2 (05:20→06:20)
[2016-06-02 07:35] VITALS: BP 110/61; PULSE 92; TEMP 36.4; O2SAT 91
[2016-06-02] MEDS: TIOTROPIUM BROMIDE 5 PUFF/90 MCG INH INH SCH (09:10)
[2016-06-02] MEDS: FLUTICASONE/SALMETEROL 250/50 (ADVAIR) 14 PUFF/1 INHALER INH SCH ×2 (09:10→21:40)
[2016-06-02] MEDS: PANTOprazole INJ 40 MG in SYRINGE 0 ML IV SCH ×2 (09:11→21:38)
[2016-06-02] MEDS: MAGNESIUM CHLORIDE 64MG DELAYED REL TAB PO SCH ×2 (09:12→21:38)
[2016-06-02] MEDS: LISINOPRIL 5 MG TAB PO SCH (09:13)
[2016-06-02] MEDS: UREA EXT SCH ×2 (09:34→21:40)
[2016-06-02] MEDS: TRIAMCINOLONE 0.1% EXT SCH ×2 (09:34→21:40)
--- NOTE | 2016-06-02 10:28 | Surgery Progress Note ---
Surgery Progress Note Date of Service Jun 02, 2016. Subjective + feeling well pt said that he has no abdominal pain, no N/V, passed a lot of gas this morning , no BM yet. NGT 200ml/overnight. Objective Vital Signs: Date Time Temp Pulse Resp B/P Pulse Ox O2 Delivery O2 Flow Rate FiO2 06/02/16 09:23 68 121/65 06/02/16 07:59 Nasal Cannula 2.0 06/02/16 07:35 36.4 92 17 110/61 91 Humidified Oxygen 1.5 06/02/16 04:00 Nasal Cannula 2.0 06/02/16 03:00 36.9 98 18 120/68 93 Nasal Cannula 06/02/16 02:53 98 120/68 06/02/16 00:24 37.0 83 20 127/71 95 Nasal Cannula 2.0 06/02/16 00:00 Nasal Cannula 2.0 06/01/16 20:48 84 126/87 06/01/16 20:00 Nasal Cannula 2.0 06/01/16 19:53 36.4 84 22 126/87 95 Nasal Cannula 2.0 06/01/16 16:00 Nasal Cannula 2.0 06/01/16 15:35 36.8 78 16 118/85 95 3.0 06/01/16 14:34 83 128/75 06/01/16 14:33 83 128/75 06/01/16 12:15 Nasal Cannula 2.0 General Appearance: WD/WN Head: normocephalic Respiratory/Chest: chest non-tender, lungs clear Cardiovascular: regular rate, rhythm, no edema, no gallop Abdomen: normal bowel sounds (middle line scar), non tender, non distended, soft Extremities: normal range of motion, non-tender, normal inspection Laboratory Results: Results Past 24 Hours Test 06/02/16 03:30 Range/Units White Blood Count 3.87 4.8-10.8 K/uL Red Blood Count 3.06 4.7-6.1 M/uL Hemoglobin 9.9 14.0-18.0 g/dL Hematocrit 30.4 42-52 % Mean Corpuscular Volume 99.3 80-100 fL Mean Corpuscular Hemoglobin 32.4 25-34 pg Mean Corpuscular Hemoglobin Concent 32.6 32-36 g/dl Platelet Count 114 130-400 K/uL Mean Platelet Volume 9.0 7.4-10.4 fL Neutrophils (%) (Auto) 60.5 % Lymphocytes (%) (Auto) 24.3 % Monocytes (%) (Auto) 13.4 % Eosinophils (%) (Auto) 0.5 % Basophils (%) (Auto) 0.3 % Neutrophils # (Auto) 2.34 1.4-6.5 K/uL Lymphocytes # (Auto) 0.94 1.2-3.4 K/uL Monocytes # (Auto) 0.52 0.11-0.59 K/uL Eosinophils # (Auto) 0.02 0-0.5 K/uL Basophils # (Auto) 0.01 0-0.2 K/uL RDW Standard Deviation 57.4 36.4-46.3 fL RDW Coefficient of Variation 15.8 11.5-14.5 % Immature Granulocyte % (Auto) 1.0 % Immature Granulocyte # (Auto) 0.04 0.00-0.02 K/uL Prothrombin Time 15.5 9.0-12.0 SECONDS Prothromb Time International Ratio 1.4 0.9-1.1 Sodium Level 143 136-145 mmol/L Potassium Level 4.0 3.5-5.1 mmol/L Chloride Level 107 98-107 mmol/L Carbon Dioxide Level 30 21-32 mmol/L Anion Gap 6.0 3-11 mmol/L Blood Urea Nitrogen 11 7-18 mg/dl Creatinine 0.54 0.60-1.40 mg/dl Est Creatinine Clear Calc Drug Dose 118.1 ml/min Estimated GFR () 114.9 Estimated GFR (Non- 99.2 BUN/Creatinine Ratio 19.8 10-20 Random Glucose 106 70-99 mg/dl Calcium Level 8.3 8.5-10.1 mg/dl Phosphorus Level 3.1 2.5-4.9 mg/dl Magnesium Level 1.6 1.8-2.4 mg/dl Total Bilirubin 0.5 0.2-1 mg/dl Direct Bilirubin 0.1 0-0.2 mg/dl Aspartate Amino Transf (AST/SGOT) 12 15-37 U/L Alanine Aminotransferase (ALT/SGPT) 11 12-78 U/L Alkaline Phosphatase 69 45-117 U/L Total Protein 6.5 6.4-8.2 gm/dl Albumin 2.6 3.4-5.0 gm/dl Triglycerides Level 83 0-150 mg/dl Cholesterol Level 73 0-200 mg/dl HDL Cholesterol 34 mg/dl LDL Cholesterol, Calculated 22 mg/dl VLDL Cholesterol, Calculated 17 mg/dl Cholesterol/HDL Ratio 2.1 Assessment & Plan IMP partial SBO pt passed gas, no abdominal pain, pt said that he dose not want any more surgery if he has to. start PPN keep the NGT one more day, pt needs CT scan abd + pelvis with po and IV contrast if pt develops abdominal pain, N/V, but pt wants to talk to his first for this study. technology project manager consult high troponin pt had a schedule for vascular surgeon in [facility] on 06/16/2016. D/W hospitalist check lactic acid and troponin on 06/03 will F/U
[2016-06-02 11:50] VITALS: BP 126/66; PULSE 87; TEMP 36.3; O2SAT 97
[2016-06-02] MEDS ORDERED: TPN/PPN CONSULT PHARMACY PRN (12:30)
[2016-06-02] MEDS ORDERED: DEXTROSE 10% 1,000 ML IV PRN (14:57)
--- NOTE | 2016-06-02 15:22 | Pharmacy Progress Note ---
Parenteral Nutrition Consult Date of Service Jun 02, 2016. Scope Pharmacy has been consulted to manage parenteral nutrition orders and order appropriate labs. As part of the Nutrition Support Team guidelines, pharmacy will work in conjunction with dietary when determining the patients caloric needs. Subjective The patient is a 80 year old male admitted on May 28, 2016 at 21:36 for Entercolitis, Intractable Vomiting With Nausea. Patient is to receive parenteral nutrition for SBO, n/v, NPO x7 days. Objective Height (Feet): 6 Height (Inches): 0.00 Weight (Kilograms): 77.400 Vascular Access: Peripheral -- pt is to have a PICC line placed this afternoon/evening Intake & Output (Last 72 Hr): 05/31/16 06/01/16 06/02/16 07:59 07:59 07:59 Intake Total 3243 ml 2241 ml 1451 ml Output Total 1675 ml 1300 ml 975 ml Balance 1568 ml 941 ml 476 ml Additional Fluid Losses/Gains: NG drainage Laboratory Data (Last 24 Hr): Test 06/02/16 03:30 06/02/16 10:50 Alanine Aminotransferase (ALT/SGPT) 11 U/L (12-78) Albumin 2.6 gm/dl (3.4-5.0) Alkaline Phosphatase 69 U/L (45-117) Aspartate Amino Transf (AST/SGOT) 12 U/L (15-37) Blood Urea Nitrogen 11 mg/dl (7-18) Calcium Level 8.3 mg/dl (8.5-10.1) Carbon Dioxide Level 30 mmol/L (21-32) Chloride Level 107 mmol/L (98-107) Creatinine 0.54 mg/dl (0.60-1.40) Magnesium Level 1.6 mg/dl (1.8-2.4) 2.0 mg/dl (1.8-2.4) Phosphorus Level 3.1 mg/dl (2.5-4.9) Potassium Level 4.0 mmol/L (3.5-5.1) Random Glucose 106 mg/dl (70-99) Sodium Level 143 mmol/L (136-145) Total Bilirubin 0.5 mg/dl (0.2-1) Triglycerides Level 83 mg/dl (0-150) Cholesterol Level 73 mg/dl (0-200) HDL Cholesterol 34 mg/dl Recent Pertinent Medications: Protonix 40mg IV BID Folic acid 1mg PO daily -- discontinued and incorporated into TPN Mag sulfate 2gm IV x1 dose this morning . Nutrition Assessment From dietitian notes: Consult received for TPN. Refer to full nutrition assessment completed 05/31/16. Estimated needs based on CBW 77.4 kg. Estimated needs: 1985 kcal (MSJ x 1.3), 101-116 g protein (1.3-1.5 g/kg), 1985 ml fluid (1 ml/kcal). Labs 06/02 reviewed : Albumin 2.6 L, TG 83 WNL, Mg, K, Phos WNL. Patient is at risk for refeeding syndrome due to NPO diet > 6 days. Continue to monitor electrolytes and replace as needed. Titrate TPN up to goal of 375 g dextrose, 110 g amino acid, 10 ml MVI , and 1 ml MTE in minimum volume. Add 50 g lipid 3x/wk on MWF. Dextrose infusion rate = 3.4 mg/kg/min. Average daily intake = 1929 kcal/day. Pharmacy to manage electrolyte additives. Remains level of care 3. Follow up as previously scheduled. Assessment * Patient has been NPO x7 days. Pt with SBO and intractable n/v. * PICC line is to be placed this afternoon/evening. Wanted to get nutrition initiated today, so will start with PPN and transition to TPN tomorrow when PICC is available for use. * Macronutrients will need to be initiated and titrated toward goal conservatively in the setting of likely refeeding. * Electrolytes are stable prior to PPN initiation. * Magnesium level was low this morning, but was replaced and is now stable. Plan For day 1 of PN administration, the following will be ordered: Macronutrients -- limited by osmolarity restrictions with peripheral administration, but plan to increase tomorrow when PICC available Amino acids 100 grams/day Dextrose 75 grams/day Lipids 0 grams/day Micronutrients -- standard electrolytes PLUS magnesium (d/t hypomagnesemia this morning) Combined electrolytes 20 mL - contains 35 mEq Na, 20 meq K, 4.5 mEq Ca, 5 mEq Mg , 35 mEq Cl, 29.5 mEq acetate per 20 mL Sodium phosphate 21 MMol Magnesium sulfate 12.18 mEq Multivitamins 10 mL Trace Elements 10 mL Additional additives: Folic acid 1 mg Thiamine 100 mg Total volume 2400 mL to be infused over 24 hrs will provide 655 kcal/day Final osmolarity 597 mOsm/L (maximum for PPN is 600 mOsm/L) Labs to be ordered per PN order protocol Pharmacy will follow and adjust parenteral nutrition orders on a daily basis. Thank you.
[2016-06-02] MEDS ORDERED: CUSTOM PERIPHERAL PN 1 BAG IV SCH (16:00)
[2016-06-02 16:08] VITALS: BP 135/88; PULSE 96; TEMP 36.5; O2SAT 92
[2016-06-02] MEDS ORDERED: NURSING VERBAL MED ORDER ONE ×2 (17:00→18:15)
[2016-06-02 19:54] VITALS: BP 136/86; PULSE 84; TEMP 36.7; O2SAT 92
[2016-06-02] MEDS: ACETAMINOPHEN 325 MG TAB PO PRN (21:37)
[2016-06-02] MEDS: SIMVASTATIN 40 MG TAB PO SCH (21:38)
[2016-06-02] MEDS: CALCITONIN SALMON NA 200 IU/AC 3.7 ML BTL SCH (21:40)
--- NOTE | 2016-06-02 21:47 | GASTROINTESTINAL CONSULTATION ---
DATE OF CONSULTATION: 06/02/2016 SUBJECTIVE: I visited the room twice over the last hour; however, the patient is undergoing PICC line placement. Therefore, physical exam or interview of the patient could not be performed. Review of the patient's records demonstrated that the patient has stable vital signs; blood pressure 126/66, respirations 17, heart rate 87, afebrile 36.3 and 97% on 1.5 liters of oxygen. ALLERGIES: THE PATIENT IS ALLERGIC TO IBUPROFEN, MORPHINE AND NARCOTICS. CURRENT MEDICATIONS: Include metoprolol, lorazepam, Protonix, Zofran, Phenergan, simvastatin, calcitonin, fluticasone, magnesium replacement and Colace. The case was discussed with the patient's nurse who revealed NG tube is in place without significant aspirate noted. At the present time, there is approximately 280 mL from NG drainage since midnight. Most recent KUB from yesterday revealed features consistent with an unchanged bowel pattern, consistent with a partial small-bowel obstruction. This is a distal, partial, small bowel obstruction. The patient has a history of an ileocolonic resection anastomosis for Crohn's disease. PLAN: The patient has a AAA repair pending for the end of the month at [place]. The differential includes either active Crohn's disease versus adhesions versus benign stricture, although the onset was fairly acute in onset. The patient currently does not have leukocytosis and is not currently on any medications for Crohn's disease at home. RECOMMENDATIONS: Would continue with n.p.o. and NG tube low intermittent suction. In addition, we will obtain an obstruction series tomorrow to reassess. The patient reportedly is passing flatus today, which is new, although no stool output at the present time. Further, at some point, if there is no change in symptoms a trial of Cipro and Flagyl may be reasonable. Further recommendations to follow. We will await obstruction series for tomorrow.
--- NOTE | 2016-06-02 22:57 | Hospitalist Progress Note ---
Hospitalist Progress Note Date of Service Jun 02, 2016. Subjective Pt evaluation today including: conversation w/ patient, conversation w/ family , physical exam, chart review, lab review, conversation w/ marketing sales consultant ( Cardiology and Gen Surgery), review of inpatient medication list PO Intake: NPO NGT replaced last night, was draining 250 mL at the time I saw him today, had passed a large amount of gas but no stool and was feeling less abd discomfort. Had several runs of NSVT in the last 24 hrs, lytes were replaced, starting TPN, and Cardiology consulted who increased his metoprolol IV. Constitutional: No fever Respiratory: No shortness of breath Cardiovascular: No chest pain Abdomen: + pain, No nausea, No vomiting Objective Vital Signs Date Time Temp Pulse Resp B/P Pulse Ox O2 Delivery O2 Flow Rate FiO2 06/02/16 21:45 90 112/77 06/02/16 19:54 36.7 84 20 136/86 92 Nasal Cannula 2.0 06/02/16 16:33 Nasal Cannula 2.0 06/02/16 16:23 108 133/68 06/02/16 16:08 36.5 96 18 135/88 92 Nasal Cannula 1.5 06/02/16 11:50 36.3 87 17 126/66 97 Humidified Oxygen 1.5 06/02/16 11:47 Nasal Cannula 2.0 06/02/16 09:23 68 121/65 06/02/16 07:59 Nasal Cannula 2.0 06/02/16 07:35 36.4 92 17 110/61 91 Humidified Oxygen 1.5 06/02/16 04:00 Nasal Cannula 2.0 06/02/16 03:00 36.9 98 18 120/68 93 Nasal Cannula 06/02/16 02:53 98 120/68 06/02/16 00:24 37.0 83 20 127/71 95 Nasal Cannula 2.0 06/02/16 00:00 Nasal Cannula 2.0 Physical Exam General Appearance: WD/WN, no apparent distress Eyes: normal inspection, sclerae normal Neck: trachea midline Respiratory/Chest: lungs clear, normal breath sounds, no respiratory distress, no accessory muscle use Cardiovascular: regular rate, rhythm, no edema, no murmur Abdomen: non tender, soft, + abnormal bowel sounds (hypoactive), + distended ( mild) Extremities: non-tender, normal inspection, no pedal edema, no calf tenderness Neurologic/Psychiatric: alert, normal mood/affect, oriented x 3 Skin: normal color, warm/dry, no rash Laboratory Results Last 24 Hours Test 06/02/16 03:30 06/02/16 10:50 White Blood Count 3.87 K/uL Red Blood Count 3.06 M/uL Hemoglobin 9.9 g/dL Hematocrit 30.4 % Mean Corpuscular Volume 99.3 fL Mean Corpuscular Hemoglobin 32.4 pg Mean Corpuscular Hemoglobin Concent 32.6 g/dl Platelet Count 114 K/uL Mean Platelet Volume 9.0 fL Neutrophils (%) (Auto) 60.5 % Lymphocytes (%) (Auto) 24.3 % Monocytes (%) (Auto) 13.4 % Eosinophils (%) (Auto) 0.5 % Basophils (%) (Auto) 0.3 % Neutrophils # (Auto) 2.34 K/uL Lymphocytes # (Auto) 0.94 K/uL Monocytes # (Auto) 0.52 K/uL Eosinophils # (Auto) 0.02 K/uL Basophils # (Auto) 0.01 K/uL RDW Standard Deviation 57.4 fL RDW Coefficient of Variation 15.8 % Immature Granulocyte % (Auto) 1.0 % Immature Granulocyte # (Auto) 0.04 K/uL Prothrombin Time 15.5 SECONDS Prothromb Time International Ratio 1.4 Sodium Level 143 mmol/L Potassium Level 4.0 mmol/L Chloride Level 107 mmol/L Carbon Dioxide Level 30 mmol/L Anion Gap 6.0 mmol/L Blood Urea Nitrogen 11 mg/dl Creatinine 0.54 mg/dl Est Creatinine Clear Calc Drug Dose 118.1 ml/min Estimated GFR () 114.9 Estimated GFR (Non- 99.2 BUN/Creatinine Ratio 19.8 Random Glucose 106 mg/dl Calcium Level 8.3 mg/dl Phosphorus Level 3.1 mg/dl Magnesium Level 1.6 mg/dl 2.0 mg/dl Total Bilirubin 0.5 mg/dl Direct Bilirubin 0.1 mg/dl Aspartate Amino Transf (AST/SGOT) 12 U/L Alanine Aminotransferase (ALT/SGPT) 11 U/L Alkaline Phosphatase 69 U/L Total Protein 6.5 gm/dl Albumin 2.6 gm/dl Triglycerides Level 83 mg/dl Cholesterol Level 73 mg/dl HDL Cholesterol 34 mg/dl LDL Cholesterol, Calculated 22 mg/dl VLDL Cholesterol, Calculated 17 mg/dl Cholesterol/HDL Ratio 2.1 Assessment and Plan 80 M pt admitted with concern for small bowel obstruction with history of Crohn' s and two bowel resections in the past, but has CAD and also developed ECG changes and elevated troponin. Bowel obstruction,NGT to LIS but fell out on 06/01 and not replaced but abdomen became more distended and no flatus at all--> NGT replaced night of 06/01 , continues with npo status, repeat x ray 06/01 shows persistently dilated loops of bowel c/w PSBO and with some pain. Finally passed large amount flatus on 06/02 but no stool, some improvement -continue NGT to LIS - Surgery following and says if no improvement by tomorrow, will consider tx to [facility] in case needs surgery but want to avoid if at all possible -if does need Surgery, pt would like transfer to [facility] to be closer to family that can care for him upon discharge plus his Vascular Surgeon is there and his other records -attempted PICC line today but unsuccessful -able to start PPN today through PIV Elevated troponin mild and stable, troponin trended downward, likely demand ischemia, ECG with lateral ST and T wave changes improved on repeat ECGs. Having recurrent NSVT runs here, longest was 12 beats-asymptomatic. 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 Chronic systolic CHF historically but ECHO this admission as above with normal EF --continue lisinopril, hold lasix as is NPO and getting ivf, continue metoprolol IV for now and Cardio increased to 7.5mg IV q6h for NSVT ECHO showed: * Left ventricular systolic function is normal. * No regional wall motion abnormalities noted. * Ejection Fraction = 55-60%. * There is mild mitral regurgitation. * There is mild tricuspid regurgitation -Appreciate Cardio recommendations-discussed with Dr. Brown on phone today Epistaxis from NGT stopped with afrin nasal spray and pressure Chronic anemia not in transfusion range as near 10 gms--> macrocytic and with mild thrombocytopenia as well -check B12, folate, Fe studies and replace as needed 5.2 cm AAA--> scheduled for repair in the next month with Dr. Obando at [facility] COPD clinically stable on albuterol and spiriva DVt prophylaxis lovenox full code
[2016-06-02] MEDS: ENOXAPARIN 40 MG/0.4 ML SYR SQ SCH (23:00)
[2016-06-03] VITALS (11 sets, daily range): BP systolic 94–139; BP diastolic 59–81; PULSE 76–102; TEMP 36.3–37.3; O2SAT 90–95
[2016-06-03] MEDS: METOPROLOL TARTRATE 1 MG/ML VIAL IV. SCH ×4 (04:04→21:30)
[2016-06-03] MEDS: ONDANSETRON INJ 2 MG/ML 2 ML VIAL IV PRN (04:17)
[2016-06-03 05:55] LABS: BUN/CREATININE RATIO 31.8 (10-20); CALCIUM 7.6 mg/dl (8.5-10.1); CREATININE 0.43 mg/dl (0.60-1.40); MAGNESIUM 1.8 mg/dl (1.8-2.4); POTASSIUM 4.2 mmol/L (3.5-5.1)
[2016-06-03 06:10] LABS: FERRITIN 292.2 ng/ml (8.0-388.0); PHOSPHORUS 3.1 mg/dl (2.5-4.9)
[2016-06-03] MEDS: FLUTICASONE/SALMETEROL 250/50 (ADVAIR) 14 PUFF/1 INHALER INH SCH ×2 (08:38→21:25)
[2016-06-03] MEDS: TIOTROPIUM BROMIDE 5 PUFF/90 MCG INH INH SCH (08:39)
[2016-06-03] MEDS: PANTOprazole INJ 40 MG in SYRINGE 0 ML IV SCH ×2 (08:40→21:24)
--- NOTE | 2016-06-03 08:41 | DIAGNOSTIC IMAGING REPORT ---
CHEST AND ABDOMEN 2 VIEWS HISTORY: Follow-up small bowel obstruction. COMPARISON: Abdominal series 06/01/2016. FINDINGS: Emphysema. No pneumothorax. The heart is mildly enlarged. Postoperative changes. Left-sided single lead pacemaker. Nasogastric tube terminates in the proximal stomach. Small bilateral pleural effusions. Suggestion of a 1.7 cm focal opacity within the right upper lobe. No pneumoperitoneum. No pneumatosis. Right-sided nephrolithiasis. Multiple dilated air and fluid-filled loops of small bowel are again noted within the abdomen. The dilated loops of slightly progressed in the interval. These measure up to 6.1 cm in diameter. This is consistent with a small bowel obstruction. IMPRESSION: 1. Progressive distention of the small bowel loops consistent with worsening small bowel obstruction. 2. Nasogastric tube terminates in the proximal stomach with the fenestrated line at the gastroesophageal junction. This should be advanced by approximately 5 cm. 3. Small bilateral pleural effusions. 4. Possible 1.7 cm nodule within the right upper lobe. Follow-up nonemergent chest CT is recommended for further evaluation. Electronically signed by: Dayo Kim M.D. 06/03/2016 8:40 AM Dictated Date/Time: 06/03/2016 8:35 AM
[2016-06-03] MEDS: MAGNESIUM CHLORIDE 64MG DELAYED REL TAB PO SCH ×2 (08:42→21:31)
[2016-06-03] MEDS: LISINOPRIL 5 MG TAB PO SCH (08:43)
[2016-06-03] MEDS: UREA EXT SCH ×2 (08:45→21:25)
[2016-06-03] MEDS: TRIAMCINOLONE 0.1% EXT SCH ×2 (08:45→21:25)
--- NOTE | 2016-06-03 11:03 | Surgery Progress Note ---
Surgery Progress Note Date of Service Jun 03, 2016. Subjective + feeling well pt is doing fine, no abdominal pain, no N/V, NGT 280ml Objective Vital Signs: Date Time Temp Pulse Resp B/P Pulse Ox O2 Delivery O2 Flow Rate FiO2 06/03/16 08:40 76 108/63 06/03/16 07:55 36.6 82 16 94/59 91 Nasal Cannula 2.0 06/03/16 04:21 36.5 102 18 132/81 92 Room Air 06/03/16 04:04 102 132/81 06/03/16 04:00 92 Room Air 06/03/16 00:02 36.7 97 20 121/72 95 Nasal Cannula 2.0 06/03/16 00:00 Nasal Cannula 2.0 06/02/16 21:45 90 112/77 06/02/16 20:00 Nasal Cannula 2.0 06/02/16 19:54 36.7 84 20 136/86 92 Nasal Cannula 2.0 06/02/16 16:33 Nasal Cannula 2.0 06/02/16 16:23 108 133/68 06/02/16 16:08 36.5 96 18 135/88 92 Nasal Cannula 1.5 06/02/16 11:50 36.3 87 17 126/66 97 Humidified Oxygen 1.5 06/02/16 11:47 Nasal Cannula 2.0 General Appearance: WD/WN Head: normocephalic Neck: supple Respiratory/Chest: chest non-tender Cardiovascular: regular rate, rhythm, no edema Abdomen: normal bowel sounds, non tender, non distended, soft Extremities: normal range of motion, non-tender, normal inspection Laboratory Results: Results Past 24 Hours Test 06/03/16 05:10 Range/Units Sodium Level 136 136-145 mmol/L Potassium Level 4.2 3.5-5.1 mmol/L Chloride Level 100 98-107 mmol/L Carbon Dioxide Level 31 21-32 mmol/L Anion Gap 5.0 3-11 mmol/L Blood Urea Nitrogen 14 7-18 mg/dl Creatinine 0.43 0.60-1.40 mg/dl Est Creatinine Clear Calc Drug Dose 150.0 ml/min Estimated GFR () 126.2 Estimated GFR (Non- 108.9 BUN/Creatinine Ratio 31.8 10-20 Random Glucose 102 70-99 mg/dl Lactic Acid Level 0.8 0.4-2.0 mmol/L Calcium Level 7.6 8.5-10.1 mg/dl Phosphorus Level 3.1 2.5-4.9 mg/dl Magnesium Level 1.8 1.8-2.4 mg/dl Iron Level 41 35-175 mcg/dl Total Iron Binding Capacity 155 250-450 mcg/dl Transferrin 123 200-360 mg/dl Transferrin % Saturation 24 20-50 % Ferritin 292.2 8.0-388.0 ng/ml Troponin I 0.152 0-0.045 ng/ml Vitamin B12 Level 1542 211-911 pg/mL Folate > 24.00 >5.38 ng/mL Assessment & Plan IMP partial SBO pt passed gas and BM, no abdominal pain, pt said that he dose not want any more surgery if he has to. D/C NGT, clear diet lactic acid 0.8 and troponin 0.152 on 06/03 will F/U IMP partial SBO pt passed gas, no abdominal pain, pt said that he dose not want any more surgery if he has to. start PPN keep the NGT one more day, pt needs CT scan abd + pelvis with po and IV contrast if pt develops abdominal pain, N/V, but pt wants to talk to his first for this study. exhibit builder consult high troponin pt had a schedule for vascular surgeon in [facility] on 06/16/2016. D/W hospitalist check lactic acid and troponin on 06/03 will F/U
--- NOTE | 2016-06-03 11:06 | CARDIOLOGY CONSULTATION ---
DATE OF CONSULTATION: 06/03/2016 REQUESTING: Dahlia Lincoln M.D. DATABASE ENGINEER: Vasu Brown D.O, [facility]. REASON FOR CONSULTATION: History of ischemic cardiomyopathy, short runs of nonsustained VT, preoperative evaluation. Dear Dr. Lincoln: Thank you for requesting cardiology consultation on Higinio with regards to his potential need for upcoming surgery. As you know, he is a very pleasant 80-year-old gentleman who I just saw this past week. He was complaining of increasing abdominal discomfort, as well as issues of constipation. Gastroenterology had tried to help facilitate moving his bowels. He had progressive abdominal discomfort and progressive constipation and ended up coming to the Emergency Room where he was found to have a small-bowel obstruction. He has been treated with conservative measures over the last week with hope that his bowel function would return to normal without needing surgical intervention. He has passed some flatus, but has not had a bowel movement at this point. His belly remains mildly distended. He notes he feels well, although looking at him, he looks significantly more ill than he did last week when I last saw him on May 28. He denies any chest pain, chest pressure, chest heaviness. He denies any shortness of breath, although he has not really been out of bed. He denies any palpitations, fluttering, feeling his heart racing. He has had some short runs of nonsustained VT on the monitor. He denies a cough. He does feel hungry. Denies any presyncope, syncope, lower extremity edema, bleeding or bruising. As mentioned, he has not had a bowel movement since he has been here. He looks frail. The rest of review of systems otherwise negative. PAST MEDICAL HISTORY: 1. Coronary artery disease status post myocardial infarction July 2006. 2. Cardiac catheterization May 2014, total occlusion of the circumflex, high degree disease in the proximal and mid right coronary artery, status post angioplasty and stenting, mild to moderate LAD disease for medical therapy and an occluded HALEY graft to the LAD. 3. Coronary bypass grafting in 2007 with a HALEY to the LAD, now occluded. 4. Paroxysmal atrial fibrillation prior to his bypass surgery, status post atrial fibrillation ablation preoperatively, status post maze procedure intraoperatively. 5. Abdominal aortic aneurysm measuring 5.5 cm, awaiting PVAR. 6. Peripheral arterial disease status post stenting of his legs in 2009, fem-pop of his right leg in November 2012. 7. History of severe left ventricular dysfunction with an EF in the range of 15% with severe pulmonary hypertension and type 2 diastolic dysfunction, and significant mitral regurgitation, which has resolved based on an echocardiogram of April 2016. 8. Echo April 2016. Mild left ventricular dysfunction, severe biatrial enlargement, mild mitral regurgitation, moderate pulmonary hypertension. 9. Hypertension. 10. Hypercholesterolemia. 11. COPD. 12. Lupus. 13. Inflammatory bowel disease with multiple abdominal surgeries and a history of ileus, now x4. 14. Status post embolization of a portion of his left renal artery secondary to significant hematoma. 15. Single chamber defibrillator, ICD, [employer] Ellipse device. SOCIAL HISTORY: Denies any current tobacco use, stopping 10 years ago. He smoked cigarettes a pack a day for 20 years. 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 He is with a very supportive . FAMILY HISTORY: Dad at 92 of old age. Mom at the age of 84 and related to diabetes complications. ALLERGIES: No known drug allergies. MEDICATIONS: Reviewed in electronic medical record. PHYSICAL EXAMINATION: VITAL SIGNS: Heart rate 76, blood pressure 108/63, his sat is 91% on 2 liters. HEENT: Just mildly reduced carotid upstrokes. No evidence of carotid bruits. His jugular venous pressure appeared flat. His sclerae is anicteric. His hearing is normal. LUNGS: Decreased breath sounds in the bases bilaterally, but no rales, rhonchi or wheezing. HEART: Regular rate and rhythm. No appreciable murmurs, rubs or gallops. ABDOMEN: Distended, nontender, soft significantly reduced bowel sounds globally throughout the abdominal cavity. EXTREMITIES: No clubbing, cyanosis or edema. PSYCHIATRIC: Affect appeared appropriate. Imaging today, KUB, progressive distention of the small bowel loops consistent with worsening small-bowel obstruction, small bilateral pleural effusions. LABORATORIES: Hemoglobin 9.9, platelet count of 114. Sodium 136, potassium 4.2, magnesium 1.8, troponin 0.152, which is trending down from a peak of 0.463. EKG May 29 when he was admitted, sinus rhythm PACs, ST-T changes, consider lateral ischemia. EKG June 01, sinus rhythm, left anterior fascicular block, ST-T changes still present, but improved compared to when he was admitted 05/29/2016. Echocardiogram from clinic EF 45% with mild global hypokinesis with the inferior and inferolateral santiago being more hypokinetic. EF 45%. Normal RV size and function. Marked biatrial enlargement. Moderate pulmonary hypertension with a PA pressure of 54 mmHg. IMPRESSION: 1. Small troponin elevation. He is known to have a total occlusion of the circumflex and likely this is demand ischemia in the face of significant nausea and vomiting when he came to the Emergency Room. It also explains the lateral ST changes that were slightly worse on May 29 compared to June 01. I do not believe that this represents plaque rupture. 2. Short runs of nonsustained ventricular tachycardia on the monitor. We have increased his beta blockers to 7.5 mg of metoprolol q. 6 hours and I would recommend a potassium greater than 4 and a magnesium greater than 2. His magnesium was low yesterday. He seems to be tolerating the higher dose of beta blockers. 3. Mild ischemic cardiomyopathy, which is stable. 4. Single chamber implantable cardioverter defibrillator with normal device function as an outpatient and no episodes of requiring therapy. He had one episode of nonsustained ventricular tachycardia that lasted 6 seconds at a rate of 160 beats per minute which was in the ventricular tachycardia monitor zone. 5. Preoperative risk assessment. As I discussed with Higinio, I believe as we discussed for his percutaneous endovascular aneurysm repair, I thought he would be at moderate risk for percutaneous endovascular aneurysm repair given the fact that it is percutaneous. If he is going to need open abdominal surgery, I believe he is at higher risk, especially in light of the fact that he has coronary disease, he had a small troponin spill here, although it is likely demand ischemia. He has significant comorbidities. He also has moderate pulmonary hypertension and he has mild left ventricular dysfunction. I believe his risk of heart attack, dying from cardiac causes, arrhythmias and congestive heart failure is around 5%. This would put him in a moderate to high risk category. He notes if he needs to have surgery, he would like to be transferred to . Looking at his KUB from this morning, the report would suggest that his ileus is actually worse, not better. He should remain on beta blockers while he is n.p.o. to try to suppress his ventricular arrhythmias and decrease myocardial ischemia. Try to maintain his electrolytes with a potassium greater than 4 and a magnesium greater than 2. Thank you for allowing us to participate in his care.
--- NOTE | 2016-06-03 12:28 | Clinical Documentation Query ---
CLINICAL DOCUMENTATION QUERY Dr. LEGGETT, In your clinical opinion is this patient being managed for: ( ) malnutrition due to bowel obstruction treated with NPO status ( ) Other explanation of clinical findings (Please Explain) ( ) Unable to determine (Please Define) ( ) Need to Discuss ( ) Not Agree The medical record reflects the following clinical findings, treatment, and risk factors. Clinical Indicators:80 yo male presented with a bowel obstruction on 05/28 and has been NPO with an NG tube since that time. Treatment: attempted PICC placement unsuccessful, PPN started, dietary consult for PPN, serial PRP's, electrolyte replacement prn Risk Factors: NPO status x 1 wk d/t bowel obstruction Please clarify and document your clinical opinion in the progress notes and discharge summary. Terms such as "probable", "suspected", "likely", "questionable", "possible", or "still to be ruled out" are acceptable. IF IN AGREEMENT, YOU MUST DOCUMENT ABOVE DIAGNOSTIC STATEMENT IN DAILY PROGRESS NOTES AND DISCHARGE SUMMARY. This document is not part of the patient's record. Thank You, Edilma Randhawa RN [phone]
[2016-06-03] MEDS ORDERED: MAGNESIUM SULFATE 1GM / D5W 1 GM in PREMIXED IN D5W 100 ML IV ONE (13:00)
--- NOTE | 2016-06-03 13:14 | Hospitalist Progress Note ---
Hospitalist Progress Note Date of Service Jun 03, 2016. Subjective Pt evaluation today including: conversation w/ patient, physical exam, chart review, lab review, conversation w/ e business consultant (Surgery), review of inpatient medication list Voiding: no voiding problems Pt feeling much better, denies abd pain, no nausea. Put out 250 mL from NGT in last 6 hours. Adamant about having NGT removed now. He is still passing flatus today but not as much as yesterday. He did have 2 small stools as well. Constitutional: No fever Respiratory: No shortness of breath Cardiovascular: No chest pain Abdomen: No nausea, No pain, No vomiting All Other Systems: Reviewed and Negative Objective Vital Signs Date Time Temp Pulse Resp B/P Pulse Ox O2 Delivery O2 Flow Rate FiO2 06/03/16 11:52 73 102/65 06/03/16 11:33 36.6 96 18 110/69 90 1.0 06/03/16 08:40 76 108/63 06/03/16 08:00 91 Nasal Cannula 2.0 06/03/16 07:55 36.6 82 16 94/59 91 Nasal Cannula 2.0 06/03/16 04:21 36.5 102 18 132/81 92 Room Air 06/03/16 04:04 102 132/81 06/03/16 04:00 92 Room Air 06/03/16 00:02 36.7 97 20 121/72 95 Nasal Cannula 2.0 06/03/16 00:00 Nasal Cannula 2.0 06/02/16 21:45 90 112/77 06/02/16 20:00 Nasal Cannula 2.0 06/02/16 19:54 36.7 84 20 136/86 92 Nasal Cannula 2.0 06/02/16 16:33 Nasal Cannula 2.0 06/02/16 16:23 108 133/68 06/02/16 16:08 36.5 96 18 135/88 92 Nasal Cannula 1.5 Physical Exam General Appearance: WD/WN, no apparent distress (angry) Eyes: normal inspection, sclerae normal Neck: trachea midline Respiratory/Chest: no respiratory distress, no accessory muscle use, + wheezing (occasional exp wheeze at right base, mild crackles left base, otherwise clear) Cardiovascular: regular rate, rhythm, no edema, no murmur Abdomen: non tender, soft (softly distended), no organomegaly, + abnormal bowel sounds (hypoactive) Extremities: normal inspection, no pedal edema, no calf tenderness Neurologic/Psychiatric: alert, oriented x 3 Skin: normal color, warm/dry, no rash Laboratory Results Last 24 Hours Test 06/03/16 05:10 Sodium Level 136 mmol/L Potassium Level 4.2 mmol/L Chloride Level 100 mmol/L Carbon Dioxide Level 31 mmol/L Anion Gap 5.0 mmol/L Blood Urea Nitrogen 14 mg/dl Creatinine 0.43 mg/dl Est Creatinine Clear Calc Drug Dose 150.0 ml/min Estimated GFR () 126.2 Estimated GFR (Non- 108.9 BUN/Creatinine Ratio 31.8 Random Glucose 102 mg/dl Lactic Acid Level 0.8 mmol/L Calcium Level 7.6 mg/dl Phosphorus Level 3.1 mg/dl Magnesium Level 1.8 mg/dl Iron Level 41 mcg/dl Total Iron Binding Capacity 155 mcg/dl Transferrin 123 mg/dl Transferrin % Saturation 24 % Ferritin 292.2 ng/ml Troponin I 0.152 ng/ml Vitamin B12 Level 1542 pg/mL Folate > 24.00 ng/mL Assessment and Plan 80 M pt admitted for small bowel obstruction with history of Crohn's and two bowel resections in the past, but has CAD and also developed ECG changes and elevated troponin. Bowel obstruction,NGT to LIS but fell out on 06/01 and not replaced but abdomen became more distended and no flatus at all--> NGT replaced night of 06/01 , continues with npo status, repeat x ray 06/01 shows persistently dilated loops of bowel c/w PSBO and with some pain. NGT replaced on 06/01. Finally passed large amount flatus on 06/02 but no stool, some improvement 06/03 feeling better, no abd pain, still with flatus passing, Abd xray looks slightly worse though, pt adamant to have NGT out -d/c NGT but discussed with pt may need to replace it if has worsening of symptoms -trial of clear liquids today -keep PPN going today through PIV - Surgery following and says if no improvement/worsens again, will consider tx to [facility] in case needs surgery but want to avoid if at all possible -if does need Surgery, pt would like transfer to [facility] to be closer to family that can care for him upon discharge plus his Vascular Surgeon is there and his other records -attempted PICC line was unsuccessful Elevated troponin mild and stable, troponin trended downward, likely demand ischemia, ECG with lateral ST and T wave changes improved on repeat ECGs. Having recurrent NSVT runs here, longest was 12 beats-asymptomatic. 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 Chronic systolic CHF historically but ECHO this admission as above with normal EF --continue lisinopril, hold lasix as is NPO and getting ivf, continue metoprolol IV for now and Cardio increased to 7.5mg IV q6h for NSVT ECHO showed: * Left ventricular systolic function is normal. * No regional wall motion abnormalities noted. * Ejection Fraction = 55-60%. * There is mild mitral regurgitation. * There is mild tricuspid regurgitation -Appreciate Cardio recommendations-discussed with Dr. Brown on phone today Epistaxis from NGT stopped with afrin nasal spray and pressure Anemia of chronic disease- not in transfusion range as near 10 gms--> macrocytic and with mild thrombocytopenia as well B12, folate both normal, Fe studies point towards anemia chronic disease -follow CBC 5.2 cm AAA--> scheduled for repair in the next month with Dr. Obando at [facility] COPD clinically stable on albuterol and spiriva DVt prophylaxis lovenox full code
[2016-06-03] MEDS ORDERED: CUSTOM PERIPHERAL PN 1 BAG IV SCH (16:00)
[2016-06-03] MEDS ORDERED: CIPROFLOXACIN / D5W 400 MG in PREMIXED IN D5W 200 ML IV ONE (16:00)
--- NOTE | 2016-06-03 16:15 | GASTROENTEROLOGY PROGRESS NOTE ---
DATE: 06/13/2016 DATE: 06/03/2016. SUBJECTIVE: The patient was ambulating in the hallway with his spouse. The NG tube that had been in was removed and his diet was advanced today. His obstruction series is demonstrating progressive distention of small bowel loops consisting with a small-bowel obstruction. Despite removal of the NG tube the patient does not had any abdominal pain, distention and is not experiencing vomiting or nausea. He did take some oral intake without difficulty. I reviewed his medication list and this included magnesium replacement, Lovenox, DVT prophylaxis, TPN, metoprolol, Ativan, pantoprazole, promethazine, Zocor, lisinopril, albuterol, Colace. ALLERGIES: HE HAS ALLERGIES TO NARCOTICS, IBUPROFEN AND MORPHINE. PHYSICAL EXAMINATION: VITAL SIGNS: Currently stable with temperature afebrile 36.6, heart rate 96, blood pressure 110/69, respirations 18. The patient is 90% on 1 liter while in bed. GENERAL: Today is benign at the present time. ABDOMEN: Soft, mildly tympanitic without rebound or guarding. There is no tenderness. EXTREMITIES: There is no clubbing, cyanosis or edema. LUNGS: Clear to auscultation. HEART: Normal S1 and S2. EYES: Sclerae are anicteric. I spoke with the patient and his at length today regarding the patient's prior history of Crohn's disease. This originated in approximately 1994, although he may have been having symptoms for a few years prior to this. Ultimately he underwent 2 bowel resections with ileocolic anastomoses performed approximately 11 years apart. During the summer, the patient who was also treated for lupus had his methotrexate slowly tapered and has been off it since January. For spine pain, the patient also had a trial of ibuprofen that he took for approximately 1 month around [place] into late April. The patient does not report any symptoms that would suggest recurrence of Crohn's by way of diarrhea or rectal bleeding, although constipation seems to have been slightly progressive. 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 I made the following recommendations. The specific nature of the patient's bowel obstruction is unclear, but includes adhesions, benign stricture, possibly malignant structure and recurrence of Crohn's disease for which there is either an inflammatory/fibrous stenotic component. Without specific imaging it may be difficult to identify the cause. The patient has an upcoming AAA repair evaluation in late May with intensions to have this repaired afterwards, however given this bowel obstruction, this in my mind, takes priority. There is concern about using steroids as this may affect wound healing of any potential surgery involving either the AAA repair or bowel resection. Therefore, it may be reasonable for the patient to have a course of IV Flagyl either with or without Cipro to see if there is an inflammatory component that can be managed and permit improved patency. At the present time, I would keep the patient n.p.o. except for ice chips and monitor for any return of nausea, vomiting or belly distention that would necessitate placing the NG tube back for drainage. At some point a repeat imaging may be prudent with CT scan. Consider obstruction series tomorrow and maintain good electrolytes labs. In addition, strict avoidance of any narcotics, anticholinergics is also recommended. At the present time, the patient does not have a leukocytosis or fever that would suggest an infection. Will continue to follow. All questions answered for the patient and his . MICHAEL
[2016-06-03] MEDS: METRONIDAZOLE / NSS 500 MG in PREMIXED NSS 100 ML IV SCH (16:42)
[2016-06-03] MEDS: ENOXAPARIN 40 MG/0.4 ML SYR SQ SCH (21:31)
[2016-06-03] MEDS: SIMVASTATIN 40 MG TAB PO SCH (21:31)
[2016-06-03] MEDS: CALCITONIN SALMON NA 200 IU/AC 3.7 ML BTL SCH (21:31)
[2016-06-04] VITALS (8 sets, daily range): BP systolic 114–148; BP diastolic 58–80; PULSE 63–99; TEMP 36.3–37.2; O2SAT 92–94
[2016-06-04] MEDS: METRONIDAZOLE / NSS 500 MG in PREMIXED NSS 100 ML IV SCH ×3 (00:20→18:48)
[2016-06-04] MEDS: CIPROFLOXACIN / D5W 400 MG in PREMIXED IN D5W 200 ML IV SCH ×2 (04:23→18:48)
[2016-06-04] MEDS: METOPROLOL TARTRATE 1 MG/ML VIAL IV. SCH ×4 (04:39→22:09)
--- NOTE | 2016-06-04 07:59 | DIAGNOSTIC IMAGING REPORT ---
KUB CLINICAL HISTORY: Small bowel obstruction. Enterocolitis. Vomiting and nausea. FINDINGS: 2 AP supine abdominal radiographs are compared to study dated 06/03/2016 and correlated with abdominal CT dated 05/28/16. There is no radiographic evidence of bowel obstruction. There are mildly distended and gas-filled loops of small bowel and colon. No evidence of intraperitoneal free air is seen. Nonobstructing bilateral renal calculi are identified. Fluid levels are noted in the pelvis. The skeletal structures are osteopenic. The bony structures appear intact noting lumbosacral spondylosis. Epicardial pacing leads are noted in the left upper quadrant. IMPRESSION: There is no clear radiographic evidence of bowel obstruction. Distended and gas-filled loops of small bowel and colon are nonspecific, and may represent ileus or possibly enterocolitis. Clinical correlation will be required. Electronically signed by: Damian Pretty M.D. 06/04/2016 7:57 AM Dictated Date/Time: 06/04/2016 7:55 AM
[2016-06-04] MEDS: MAGNESIUM CHLORIDE 64MG DELAYED REL TAB PO SCH ×2 (08:18→21:21)
[2016-06-04] MEDS: LISINOPRIL 5 MG TAB PO SCH (08:18)
[2016-06-04] MEDS: PANTOprazole INJ 40 MG in SYRINGE 0 ML IV SCH (08:19)
[2016-06-04] MEDS: TRIAMCINOLONE 0.1% EXT SCH ×2 (08:19→21:22)
[2016-06-04] MEDS: UREA EXT SCH ×2 (08:19→21:22)
[2016-06-04] MEDS: TIOTROPIUM BROMIDE 5 PUFF/90 MCG INH INH SCH (08:19)
[2016-06-04] MEDS: FLUTICASONE/SALMETEROL 250/50 (ADVAIR) 14 PUFF/1 INHALER INH SCH ×2 (08:19→21:22)
[2016-06-04 08:37] LABS: BUN/CREATININE RATIO 33.2 (10-20); CALCIUM 7.6 mg/dl (8.5-10.1); CREATININE 0.41 mg/dl (0.60-1.40); MAGNESIUM 1.9 mg/dl (1.8-2.4); PHOSPHORUS 2.8 mg/dl (2.5-4.9); POTASSIUM 3.6 mmol/L (3.5-5.1)
--- NOTE | 2016-06-04 10:45 | Surgery Progress Note ---
Surgery Progress Note Date of Service Jun 04, 2016. Subjective Post OP Day: Hospital day # 7 + ambulating, + bowel movement, + feeling well, + flatus, No SOB, No chest pain , No nausea, No vomiting Objective Vital Signs: Date Time Temp Pulse Resp B/P Pulse Ox O2 Delivery O2 Flow Rate FiO2 06/04/16 09:44 69 123/68 06/04/16 08:30 Room Air 06/04/16 07:52 37.2 69 18 123/68 93 Room Air 06/04/16 04:39 80 114/58 06/04/16 04:00 37.0 80 16 114/58 93 Room Air 06/04/16 04:00 Nasal Cannula 2.0 06/04/16 00:11 36.8 63 16 120/71 93 2.0 06/04/16 00:00 Nasal Cannula 2.0 06/03/16 21:30 78 105/65 06/03/16 20:00 92 Nasal Cannula 2.0 06/03/16 19:48 37.3 80 16 139/76 95 2.0 06/03/16 18:18 80 146/85 06/03/16 16:00 Nasal Cannula 2.0 06/03/16 15:49 36.3 85 18 119/68 06/03/16 12:00 91 Nasal Cannula 2.0 06/03/16 11:52 73 102/65 06/03/16 11:33 36.6 96 18 110/69 90 1.0 General Appearance: WD/WN, no apparent distress Head: normocephalic, atraumatic Respiratory/Chest: no respiratory distress, no accessory muscle use Abdomen: normal bowel sounds, non tender, non distended, soft Extremities: normal range of motion Laboratory Results: Results Past 24 Hours Test 06/04/16 07:21 Range/Units Sodium Level 133 136-145 mmol/L Potassium Level 3.6 3.5-5.1 mmol/L Chloride Level 97 98-107 mmol/L Carbon Dioxide Level 28 21-32 mmol/L Anion Gap 8.0 3-11 mmol/L Blood Urea Nitrogen 14 7-18 mg/dl Creatinine 0.41 0.60-1.40 mg/dl Est Creatinine Clear Calc Drug Dose 157.7 ml/min Estimated GFR () 128.7 Estimated GFR (Non- 111.1 BUN/Creatinine Ratio 33.2 10-20 Random Glucose 96 70-99 mg/dl Calcium Level 7.6 8.5-10.1 mg/dl Phosphorus Level 2.8 2.5-4.9 mg/dl Magnesium Level 1.9 1.8-2.4 mg/dl Assessment & Plan Partial Small Bowel Obstruction - Resolving - vitals stable - + bowel function - no abdominal pain Plan: advance diet to clear liquids today continue current management Patient would prefer to not have any surgery and continue conservative management. Given patients extensive history of abdominal surgeries and age he would prefer to have surgery, if needed, at [facility]. Encourage ambulation Will continue to follow
[2016-06-04] MEDS: POTASSIUM CHLR 10 MEQ / WTR 10 MEQ in PREMIXED WATER 100 ML IV SCH ×2 (14:29→15:55)
--- NOTE | 2016-06-04 14:31 | Hospitalist Progress Note ---
Hospitalist Progress Note Date of Service Jun 04, 2016. Subjective Pt evaluation today including: conversation w/ patient, conversation w/ family , physical exam, chart review, lab review, review of studies, conversation w/ sap bw consultant (Surgery), review of inpatient medication list PO Intake: pat clears Voiding: no voiding problems Doing much better, passing flatus, no abd pain, moving bowels, had a large BM this AM. Is ambulating the halls, pat clears Constitutional: No fever Respiratory: No shortness of breath Cardiovascular: No chest pain Abdomen: No pain Objective Vital Signs Date Time Temp Pulse Resp B/P Pulse Ox O2 Delivery O2 Flow Rate FiO2 06/04/16 12:28 36.8 99 16 148/76 92 Room Air 06/04/16 12:15 Room Air 06/04/16 09:44 69 123/68 06/04/16 08:30 Room Air 06/04/16 07:52 37.2 69 18 123/68 93 Room Air 06/04/16 04:39 80 114/58 06/04/16 04:00 37.0 80 16 114/58 93 Room Air 06/04/16 04:00 Nasal Cannula 2.0 06/04/16 00:11 36.8 63 16 120/71 93 2.0 06/04/16 00:00 Nasal Cannula 2.0 06/03/16 21:30 78 105/65 06/03/16 20:00 92 Nasal Cannula 2.0 06/03/16 19:48 37.3 80 16 139/76 95 2.0 06/03/16 18:18 80 146/85 06/03/16 16:00 Nasal Cannula 2.0 06/03/16 15:49 36.3 85 18 119/68 Physical Exam General Appearance: WD/WN, no apparent distress Eyes: normal inspection, sclerae normal ENT: hearing grossly normal Neck: trachea midline Respiratory/Chest: lungs clear, normal breath sounds, no respiratory distress, no accessory muscle use Cardiovascular: regular rate, rhythm, no edema, no gallop, no murmur Abdomen: normal bowel sounds, non tender, soft (with mild distension) Extremities: non-tender, no pedal edema, no calf tenderness Neurologic/Psychiatric: alert, normal mood/affect, oriented x 3 Skin: normal color, warm/dry, no rash Laboratory Results Last 24 Hours Test 06/04/16 07:21 Sodium Level 133 mmol/L Potassium Level 3.6 mmol/L Chloride Level 97 mmol/L Carbon Dioxide Level 28 mmol/L Anion Gap 8.0 mmol/L Blood Urea Nitrogen 14 mg/dl Creatinine 0.41 mg/dl Est Creatinine Clear Calc Drug Dose 157.7 ml/min Estimated GFR () 128.7 Estimated GFR (Non- 111.1 BUN/Creatinine Ratio 33.2 Random Glucose 96 mg/dl Calcium Level 7.6 mg/dl Phosphorus Level 2.8 mg/dl Magnesium Level 1.9 mg/dl Assessment and Plan 80 M pt admitted for small bowel obstruction with history of Crohn's and two bowel resections in the past, but has CAD and also developed ECG changes and elevated troponin. Bowel obstruction,NGT to LIS but fell out on 06/01 and not replaced but abdomen became more distended and no flatus at all--> NGT replaced night of 06/01,repeat x ray 06/01 shows persistently dilated loops of bowel c/w PSBO and with some pain. NGT replaced on 06/01. Finally passed large amount flatus on 06/02 but no stool, some improvement 06/03 feeling better, no abd pain, still with flatus passing, Abd xray looks slightly worse though, pt adamant to have NGT out so was removed 06/04 feeling great, no abd pain, pat clears, Xray reviewed and is much improved , had large BM and passing flatus GI questions if after coming off his MTX he was on for years for SLE, maybe Crohn's is flaring up. -continue clear liquids today -keep PPN going today through PIV and replace KCl extra riders -started Cipro and Flagyl in case of Crohn's flare as per GI recommendations--> will continue - Surgery following and says if no improvement/worsens again, will consider tx to [facility] in case needs surgery but want to avoid if at all possible -if does need Surgery, pt would like transfer to [facility] to be closer to family that can care for him upon discharge plus his Vascular Surgeon is there and his other records Elevated troponin mild and stable, troponin trended downward, likely demand ischemia, ECG with lateral ST and T wave changes improved on repeat ECGs. Having recurrent NSVT runs here, longest was 12 beats-asymptomatic. 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 Chronic systolic CHF historically but ECHO this admission as above with normal EF --continue lisinopril, hold lasix as is NPO and getting ivf, continue metoprolol IV for now and Cardio increased to 7.5mg IV q6h for NSVT ECHO showed: * Left ventricular systolic function is normal. * No regional wall motion abnormalities noted. * Ejection Fraction = 55-60%. * There is mild mitral regurgitation. * There is mild tricuspid regurgitation -Appreciate Cardio recommendations-discussed with Dr. Brown Epistaxis from NGT stopped with afrin nasal spray and pressure Anemia of chronic disease- not in transfusion range as near 10 gms--> macrocytic and with mild thrombocytopenia as well B12, folate both normal, Fe studies point towards anemia chronic disease -follow CBC 5.2 cm AAA--> scheduled for repair in the next month with Dr. Obando at [facility] COPD clinically stable on albuterol and spiriva DVt prophylaxis lovenox full code
--- NOTE | 2016-06-04 15:04 | GASTROENTEROLOGY PROGRESS NOTE ---
DATE: 06/04/2016 SUBJECTIVE: The patient was sitting at the bedside comfortably. He reports that he has not only had flatus but had bowel movements today. He has no nausea or vomiting since overnight and since his NG tube was removed. He actually tolerated a liquid diet earlier this morning and at lunch. His obstruction series today now suggest that there is no clear evidence for a bowel obstruction, but rather distention gas-filled loops of small bowel and colon that may represent an ileal. Enterocolitis is also in the differential. There is no free air identified. OBJECTIVE: VITAL SIGNS: Show he is afebrile at 36.8, heart rate 99, respirations 16, 148/76, 92% on room air. CURRENT MEDICATIONS: Include potassium replacement, Cipro, Flagyl, Lovenox for DVT prophylaxis, Lopressor, p.r.n. lorazepam, pantoprazole, and Ventolin inhaler. LABORATORY DATA: Laboratory studies from yesterday white count 3.9, hemoglobin 9.9, platelets 214,000. Chemistries from today show a sodium 133, potassium 3.6, BUN and creatinine are 14 and 0.4. Lactate level yesterday morning was 0.8. PHYSICAL EXAMINATION: GENERAL: The patient is awake, alert and oriented x3. He is not short of breath. ABDOMEN: Soft, mildly tympanitic without rebound or guarding. There is no significant abdominal distention. EXTREMITIES: Without clubbing, cyanosis or edema. LUNGS: Clear to auscultation. HEART: Normal S1, S2. IMPRESSION AND PLAN: The patient with flatus and bowel movement and tolerating n.p.o. without NG tube with no symptoms following NG tube removal that the patient urged yesterday morning. The patient is on Cipro and Flagyl. Would continue to ambulate and continue a clear liquid pattern to ensure there are no obstructing features that recur. We would perform a serial KUB either tomorrow or Wednesday depending on the patient's symptoms. At this point, if his symptoms continue to do well, could consider an MR enterography or a CT enterography. Also, at some point if not recently performed a colonoscopy to assess the anastomosis is reasonable in anticipation of his plan AAA repair. We would continue monitoring electrolytes and correct as necessary. All questions answered. MICHAEL
[2016-06-04] MEDS ORDERED: CUSTOM PERIPHERAL PN 1 BAG IV SCH (16:00)
[2016-06-04] MEDS: PANTOprazole SOD 40 MG TAB PO SCH (21:21)
[2016-06-04] MEDS: SIMVASTATIN 40 MG TAB PO SCH (21:21)
[2016-06-04] MEDS: CALCITONIN SALMON NA 200 IU/AC 3.7 ML BTL SCH (21:22)
[2016-06-04] MEDS: ENOXAPARIN 40 MG/0.4 ML SYR SQ SCH (21:22)
[2016-06-05] VITALS (8 sets, daily range): BP systolic 101–141; BP diastolic 61–82; PULSE 77–105; TEMP 36.4–36.9; O2SAT 91–96
[2016-06-05] MEDS: METRONIDAZOLE / NSS 500 MG in PREMIXED NSS 100 ML IV SCH ×3 (00:02→16:06)
[2016-06-05] MEDS: ACETAMINOPHEN 325 MG TAB PO PRN (02:13)
[2016-06-05] MEDS: METOPROLOL TARTRATE 1 MG/ML VIAL IV. SCH ×3 (03:57→16:09)
[2016-06-05] MEDS: CIPROFLOXACIN / D5W 400 MG in PREMIXED IN D5W 200 ML IV SCH ×2 (05:12→16:13)
[2016-06-05 07:45] LABS: BUN/CREATININE RATIO 27.1 (10-20); CREATININE 0.48 mg/dl (0.60-1.40); MAGNESIUM 1.9 mg/dl (1.8-2.4); PHOSPHORUS 2.9 mg/dl (2.5-4.9); POTASSIUM 3.6 mmol/L (3.5-5.1)
[2016-06-05] MEDS: FLUTICASONE/SALMETEROL 250/50 (ADVAIR) 14 PUFF/1 INHALER INH SCH ×2 (07:51→20:09)
[2016-06-05] MEDS: LISINOPRIL 5 MG TAB PO SCH (07:51)
[2016-06-05] MEDS: TIOTROPIUM BROMIDE 5 PUFF/90 MCG INH INH SCH (07:52)
[2016-06-05] MEDS: PANTOprazole SOD 40 MG TAB PO SCH ×2 (07:53→20:08)
[2016-06-05] MEDS: MAGNESIUM CHLORIDE 64MG DELAYED REL TAB PO SCH ×2 (07:53→20:08)
[2016-06-05] MEDS: TRIAMCINOLONE 0.1% EXT SCH ×2 (07:55→21:00)
[2016-06-05] MEDS: UREA EXT SCH ×2 (07:55→21:00)
--- NOTE | 2016-06-05 09:40 | DIAGNOSTIC IMAGING REPORT ---
ABDOMEN 2 VIEWS CLINICAL HISTORY: Small bowel obstruction. Enterocolitis. Vomiting and nausea. FINDINGS: Supine and erect abdominal radiographs are compared to study dated 06/04/2016 and correlated with abdominal CT dated 05/28/16. There is no radiographic evidence of bowel obstruction. There are mildly distended and gas-filled loops of small bowel and colon, similar to yesterday. Scattered air-fluid levels are noted on the upright view. No evidence of intraperitoneal free air is seen. Nonobstructing bilateral renal calculi are identified. Phleboliths are noted in the pelvis. The skeletal structures are osteopenic. The bony structures appear intact noting lumbosacral spondylosis. The heart is enlarged an AICD lead and midline sternotomy wires are noted. Epicardial pacing leads are also present. IMPRESSION: There is no clear radiographic evidence of bowel obstruction. Distended and gas-filled loops of small bowel and colon are again noted and nonspecific, possibly representing ileus or a nonspecific enterocolitis. This is unchanged from yesterday and clinical correlation will be required. Electronically signed by: Damian Pretty M.D. 06/05/2016 9:39 AM Dictated Date/Time: 06/05/2016 9:36 AM
--- NOTE | 2016-06-05 11:46 | GASTROENTEROLOGY PROGRESS NOTE ---
DATE: 06/05/2016 SUBJECTIVE: The patient is doing well overnight without nausea, vomiting, abdominal pain, had flatus overnight and yesterday with continued today, although he has had no bowel movement today, although did have stool passage yesterday. There is no bleeding described. X-rays from today show again a nonspecific gas pattern in the colon and small bowel consistent with ileus, which is essentially unchanged from yesterday's findings. LABORATORY STUDIES: Serum chemistries today potassium 3.6, BUN and creatinine 13 and 0.48, phosphorous 2.9, magnesium 1.9. MEDICATIONS: Unchanged. He continues on antibiotics including Flagyl, metronidazole, pantoprazole, Lovenox, Lopressor and p.r.n. promethazine. PHYSICAL EXAMINATION: VITAL SIGNS: Today, the patient is afebrile 36.7, blood pressure 138/75, 93% on room air. Heart rate 92, respirations 16. HEART: Normal S1, S2. LUNGS: Clear to auscultation without wheezes. ABDOMEN: Soft, minimally tympanic without rebound or guarding. There is no abdominal distention. There are no abdominal bruits. EXTREMITIES: Without edema. RECTAL: Deferred. IMPRESSION: The patient with clinically doing better, feels hungry and is tolerating liquids. I believe it is reasonable to advance his diet to soft and observe his symptoms. If he continues the pass flatus and has a bowel movement, would consider a 7-day course of Flagyl, Cipro, which can be converted to oral form. At some point, outpatient or inpatient MR enterography may be reasonable to exclude Crohn's activity or subtle stricture or narrowing, although at the present time, the last 2 days imaging studies suggest more been ileus pattern than an obstruction as earlier suggested. The patient follows with Dr. Mullen in GI clinic and this can be arranged for office visit over the next few weeks. MICHAEL
--- NOTE | 2016-06-05 11:46 | Surgery Progress Note ---
Surgery Progress Note Date of Service Jun 05, 2016. Subjective + feeling well pt is doing fine, passed BM, no abdominal pain, no N/V. Objective Vital Signs: Date Time Temp Pulse Resp B/P Pulse Ox O2 Delivery O2 Flow Rate FiO2 06/05/16 10:42 97 138/75 06/05/16 08:03 36.7 92 16 138/75 93 Room Air 06/05/16 08:00 Room Air 06/05/16 05:21 36.8 77 16 101/61 95 Room Air 06/05/16 04:00 Room Air 06/05/16 03:57 80 132/72 06/05/16 03:56 80 132/72 06/05/16 00:29 Room Air 06/05/16 00:11 36.4 84 16 124/69 91 Room Air 06/04/16 22:09 79 125/80 06/04/16 22:07 79 125/80 06/04/16 20:04 37.1 85 16 136/78 94 2.0 06/04/16 20:00 Room Air 06/04/16 16:51 36.3 90 18 130/60 94 Room Air 06/04/16 16:10 86 133/76 06/04/16 16:07 86 133/76 06/04/16 16:00 Room Air 06/04/16 12:28 36.8 99 16 148/76 92 Room Air 06/04/16 12:15 Room Air General Appearance: WD/WN Head: normocephalic Neck: supple Respiratory/Chest: chest non-tender Cardiovascular: regular rate, rhythm, no edema Abdomen: normal bowel sounds, non tender, non distended, soft Extremities: normal range of motion, non-tender, normal inspection Laboratory Results: Results Past 24 Hours Test 06/05/16 06:40 Range/Units Sodium Level 136 136-145 mmol/L Potassium Level 3.6 3.5-5.1 mmol/L Chloride Level 100 98-107 mmol/L Carbon Dioxide Level 28 21-32 mmol/L Anion Gap 8.0 3-11 mmol/L Blood Urea Nitrogen 13 7-18 mg/dl Creatinine 0.48 0.60-1.40 mg/dl Est Creatinine Clear Calc Drug Dose 131.6 ml/min Estimated GFR () 120.6 Estimated GFR (Non- 104.1 BUN/Creatinine Ratio 27.1 10-20 Random Glucose 92 70-99 mg/dl Calcium Level 8.0 8.5-10.1 mg/dl Phosphorus Level 2.9 2.5-4.9 mg/dl Magnesium Level 1.9 1.8-2.4 mg/dl Triglycerides Level 72 0-150 mg/dl Assessment & Plan IMP partial SBO resolved pt passed gas and BM, no abdominal pain sign off today please call us if any new issues F/U me 1 week [phone] IMP partial SBO pt passed gas and BM, no abdominal pain, pt said that he dose not want any more surgery if he has to. D/C NGT, clear diet lactic acid 0.8 and troponin 0.152 on 06/03 will F/U
[2016-06-05] MEDS ORDERED: ASPIRIN 81 MG ECTAB PO ONE (14:45)
--- NOTE | 2016-06-05 14:49 | Hospitalist Progress Note ---
Hospitalist Progress Note Date of Service Jun 05, 2016. Subjective Pt evaluation today including: conversation w/ patient, physical exam, chart review, lab review, review of studies, conversation w/ home energy consultant (GI), review of inpatient medication list PO Intake: pat soft diet for lunch Voiding: no voiding problems Pt feeling much better, pat soft diet for lunch, some abd distension but no pain , is having more BMs today. No CP or SOB. Has ambulated around hallways. C/o not being able to sleep at night All Other Systems: Reviewed and Negative Objective Vital Signs Date Time Temp Pulse Resp B/P Pulse Ox O2 Delivery O2 Flow Rate FiO2 06/05/16 11:58 80 16 137/69 06/05/16 11:25 Room Air 06/05/16 10:42 97 138/75 06/05/16 08:03 36.7 92 16 138/75 93 Room Air 06/05/16 08:00 Room Air 06/05/16 05:21 36.8 77 16 101/61 95 Room Air 06/05/16 04:00 Room Air 06/05/16 03:57 80 132/72 06/05/16 03:56 80 132/72 06/05/16 00:29 Room Air 06/05/16 00:11 36.4 84 16 124/69 91 Room Air 06/04/16 22:09 79 125/80 06/04/16 22:07 79 125/80 06/04/16 20:04 37.1 85 16 136/78 94 2.0 06/04/16 20:00 Room Air 06/04/16 16:51 36.3 90 18 130/60 94 Room Air 06/04/16 16:10 86 133/76 06/04/16 16:07 86 133/76 06/04/16 16:00 Room Air Physical Exam General Appearance: WD/WN, no apparent distress Eyes: normal inspection, sclerae normal ENT: hearing grossly normal Respiratory/Chest: lungs clear, normal breath sounds, no respiratory distress, no accessory muscle use Cardiovascular: regular rate, rhythm, no edema, no murmur Abdomen: normal bowel sounds, non tender, soft (with mild distension) Extremities: non-tender, no pedal edema, no calf tenderness Neurologic/Psychiatric: alert, normal mood/affect, oriented x 3 Skin: normal color, warm/dry, no rash Laboratory Results Last 24 Hours Test 06/05/16 06:40 Sodium Level 136 mmol/L Potassium Level 3.6 mmol/L Chloride Level 100 mmol/L Carbon Dioxide Level 28 mmol/L Anion Gap 8.0 mmol/L Blood Urea Nitrogen 13 mg/dl Creatinine 0.48 mg/dl Est Creatinine Clear Calc Drug Dose 131.6 ml/min Estimated GFR () 120.6 Estimated GFR (Non- 104.1 BUN/Creatinine Ratio 27.1 Random Glucose 92 mg/dl Calcium Level 8.0 mg/dl Phosphorus Level 2.9 mg/dl Magnesium Level 1.9 mg/dl Triglycerides Level 72 mg/dl Assessment and Plan 80 M pt admitted for small bowel obstruction with history of Crohn's and two bowel resections in the past, but has CAD and also developed ECG changes and elevated troponin. Bowel obstruction,NGT to LIS but fell out on 06/01 and not replaced but abdomen became more distended and no flatus at all--> NGT replaced night of 06/01,repeat x ray 06/01 shows persistently dilated loops of bowel c/w PSBO and with some pain. NGT replaced on 06/01. Finally passed large amount flatus on 06/02 but no stool, some improvement 06/03 feeling better, no abd pain, still with flatus passing, Abd xray looks slightly worse though, pt adamant to have NGT out so was removed 06/04 feeling great, no abd pain, pat clears, Xray reviewed and is much improved , had large BM and passing flatus GI questions if after coming off his MTX he was on for years for SLE, maybe Crohn's is flaring up. Continues to improve and now tolerating soft diet, having daily BMs, passing flatus. -continue to adv diet as pat -repeat AAS in the AM and possibly dc to home tomorrow -d/c PPN -continue Cipro and Flagyl in case of Crohn's flare as per GI recommendations--> switch to po for 10 day course upon dc - Surgery following and signed off today -will need MR Enterography but is severely claustrophobic so may need open MRI as outpt -f/u with Dr. Mullen as outpt Elevated troponin mild and stable, troponin trended downward, likely demand ischemia, ECG with lateral ST and T wave changes improved on repeat ECGs. Having recurrent NSVT runs here, longest was 12 beats-asymptomatic. 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 Chronic systolic CHF historically but ECHO this admission as above with normal EF --continue lisinopril, hold lasix, swithc back to po Coreg from IV metoprolol now that pat po -restart ASA today ECHO showed: * Left ventricular systolic function is normal. * No regional wall motion abnormalities noted. * Ejection Fraction = 55-60%. * There is mild mitral regurgitation. * There is mild tricuspid regurgitation -Appreciate Cardio recommendations-discussed with Dr. Brown -already deemed at moderate risk for AAA repair and would be mod-high risk if needed open abd surgery Epistaxis from NGT stopped with afrin nasal spray and pressure Anemia of chronic disease- not in transfusion range as near 10 gms--> macrocytic and with mild thrombocytopenia as well B12, folate both normal, Fe studies point towards anemia chronic disease -follow CBC 5.2 cm AAA--> scheduled for repair in the next month with Dr. [place] [facility] clinically stable on albuterol and spiriva DVt prophylaxis lovenox full code
[2016-06-05] MEDS: SIMVASTATIN 40 MG TAB PO SCH (20:08)
[2016-06-05] MEDS: ENOXAPARIN 40 MG/0.4 ML SYR SQ SCH (20:09)
[2016-06-05] MEDS: CALCITONIN SALMON NA 200 IU/AC 3.7 ML BTL SCH (20:10)
[2016-06-05] MEDS: CARVEDILOL 6.25 MG TAB PO SCH (21:00)
[2016-06-06] MEDS: METRONIDAZOLE / NSS 500 MG in PREMIXED NSS 100 ML IV SCH ×2 (00:24→08:12)
[2016-06-06 04:00] VITALS: BP 108/64; PULSE 87; TEMP 36.3; O2SAT 92
[2016-06-06] MEDS: CIPROFLOXACIN / D5W 400 MG in PREMIXED IN D5W 200 ML IV SCH (04:55)
[2016-06-06 07:46] VITALS: BP 121/71; PULSE 76; TEMP 36.7; O2SAT 93
[2016-06-06 08:46] LABS: BASO % 0.4 %; BASO ABS # 0.01 K/uL (0-0.2); COMPLETE YES; EOS % 0.8 %; HEMATOCRIT 29.4 % (42-52); IG% 3.7 %; LYMPH % 31.6 %; LYMPH ABS # 0.77 K/uL (1.2-3.4); MEAN CELL VOLUME 96.7 fL (80-100); MEAN CORPUSCULAR HEMOGLOBIN 31.9 pg (25-34); MEAN PLATELET VOLUME 9.6 fL (7.4-10.4); MONO % 9.8 %; NEUT % 53.7 %; PLATELET COUNT 139 K/uL (130-400); RED BLOOD COUNT 3.04 M/uL (4.7-6.1); WHITE BLOOD COUNT 2.44 K/uL (4.8-10.8)
[2016-06-06] MEDS ORDERED: ASPIRIN 81 MG ECTAB PO SCH (09:00)
[2016-06-06] MEDS: FLUTICASONE/SALMETEROL 250/50 (ADVAIR) 14 PUFF/1 INHALER INH SCH (09:01)
[2016-06-06] MEDS: TIOTROPIUM BROMIDE 5 PUFF/90 MCG INH INH SCH (09:01)
[2016-06-06] MEDS: LISINOPRIL 5 MG TAB PO SCH (09:02)
[2016-06-06] MEDS: UREA EXT SCH (09:02)
[2016-06-06] MEDS: PANTOprazole SOD 40 MG TAB PO SCH (09:02)
[2016-06-06] MEDS: CARVEDILOL 6.25 MG TAB PO SCH (09:02)
[2016-06-06] MEDS: MAGNESIUM CHLORIDE 64MG DELAYED REL TAB PO SCH (09:02)
[2016-06-06] MEDS: TRIAMCINOLONE 0.1% EXT SCH (09:02)
[2016-06-06 09:16] LABS: BUN/CREATININE RATIO 24.6 (10-20); CALCIUM 8.2 mg/dl (8.5-10.1); CREATININE 0.5 mg/dl (0.60-1.40); MAGNESIUM 1.7 mg/dl (1.8-2.4); POTASSIUM 3.9 mmol/L (3.5-5.1)
--- NOTE | 2016-06-06 10:34 | DIAGNOSTIC IMAGING REPORT ---
ABDOMEN 2 VIEWS CLINICAL HISTORY: Follow-up small bowel obstruction, ileus. COMPARISON STUDY: Abdominal series June 05, 2016. FINDINGS: Incidental note is made of a pacer/AICD lead, median sternotomy wires and epicardial pacer leads. There is no free air. There is mild dilatation of several small and large bowel loops which has improved since exam of June 05, 2016. IMPRESSION: 1. No free air. 2. Interval decreased in small and large bowel dilatation since prior exam of June 05, 2016. 3. Bilateral nephrolithiasis. Electronically signed by: Miguel Catherine M.D. 06/06/2016 10:33 AM Dictated Date/Time: 06/06/2016 10:31 AM
--- NOTE | 2016-06-06 10:54 | GASTROENTEROLOGY PROGRESS NOTE ---
DATE: 06/06/2016 DATE: 06/06/2016. HISTORY OF PRESENT ILLNESS: The patient is doing well, resting comfortably in bed and ready to go down for obstruction series. The patient is without nausea, vomiting, abdominal pain, has reported bowel movements, although scant yesterday with continued passing of flatus. He is tolerating solid food well. LABORATORY DATA: His serum chemistries today are satisfactory, potassium 3.9, BUN and creatinine are 12 and 0.5. His magnesium level was slightly low at 1.7. Hemoglobin is stable at 9.7. White count is diminished at 2.44. His medications are unchanged. He continues on Cipro and Flagyl, Lovenox, pantoprazole, aspirin. VITAL SIGNS: Vital signs today afebrile 36.7, blood pressure 121/71, respirations 18, heart rate 76, 93% on room air. MEDICATIONS AND ALLERGIES: Were reviewed. PHYSICAL EXAMINATION: HEART: Normal S1, S2. LUNGS: Clear to auscultation. Sclerae are anicteric. Oral mucosa is moist. ABDOMEN: Soft with positive bowel sounds. No rebound or guarding or distention. There is no tenderness. EXTREMITIES: Without edema. The patient's x-ray appears improved from yesterday with a reduction in small bowel pattern of ileus and only nonspecific air throughout the colon. IMPRESSION: Suspected resolving ileus from admission. Would continue his Cipro, Flagyl for a total of 7 days. At some point as an outpatient either a CT enterography or an MR enterography would be reasonable (the patient has normal renal function). In addition, the patient should follow with Dr. Mullen in GI clinic over the next 2-4 weeks. The patient is tolerating oral intake quite well and is helpful to be discharged sometime today.
[2016-06-06 12:17] VITALS: BP_SYST 127; BP_SYST 153; BP_DIAS 73; BP_DIAS 89; PULSE 68; PULSE 71; TEMP 36.5; TEMP 36.6; O2SAT 94; O2SAT 97
[2016-06-06] MEDS ORDERED: MAGNESIUM SULFATE 1GM / D5W 1 GM in PREMIXED IN D5W 100 ML IV SCH (14:00)
[2016-06-06] MEDS ORDERED: METR500T PO (14:29)
[2016-06-06] MEDS ORDERED: MCLIN (14:29)
[2016-06-06] MEDS ORDERED: CPR500 PO (14:29)
[2016-06-06] MEDS ORDERED: LSX40 PO (14:29)
[2016-06-06] MEDS ORDERED: CLC100 PO (14:29)
--- NOTE | 2016-06-06 14:34 | Discharge Instructions ---
Discharge Instructions Admission Reason for Admission: Small bowel obstruction Discharge Discharge Diagnosis / Problem: Small bowel obstruction Discharge Goals Goal(s): Improve disease control, Therapeutic intervention Activity Recommendations Activity Limitations: resume your previous activity Lifting Limitations: none Exercise/Sports Limitations: none Shower/Bathe: no limitations . Instructions / Follow-Up Instructions / Follow-Up You were admitted for a small bowel obstruction that may be caused by a flare up of your Crohn's disease versus adhesions/scar tissue from previous bowel surgeries. You had a tube placed into your stomach to decompress backed up air and fluid. Eventually your bowels started functioning again and the tube was removed. You were passing gas, eating, and having bowel movements which signaled you had improved. You should remain on a course of antibiotics with ciprofloxacin and metronidazole as prescribed and follow up with Dr. Mullen in the GI office within 2-[address] Flood/GI recommends that you have either a CT Enterography or a MR Enterography test as an outpatient to see if your Crohn's is active. This can be arranged/ordered by Dr. Mullen. Please keep your appointment with Dr. Obando for evaluation for your abdominal aneurysm repair. Please follow up with your PCP within 1 week as well. Current Hospital Diet Patient's current hospital diet: Low Fat Diet Discharge Diet Recommended Diet: Low Fat Diet (and soft foods) Procedures Procedures Performed: Multiple abdominal and chest xrays ECHO Pending Studies Studies pending at discharge: no Laboratory Results Lipid Panel Test 06/02/16 03:30 06/05/16 06:40 Range/Units Triglycerides Level 83 72 0-150 mg/dl Cholesterol Level 73 0-200 mg/dl HDL Cholesterol 34 mg/dl Cholesterol/HDL Ratio 2.1 LDL Cholesterol, Calculated 22 mg/dl Medical Emergencies . Who to Call and When: Medical Emergencies: If at any time you feel your situation is an emergency, please call 911 immediately. . Non-Emergent Contact Non-Emergency issues call your: Primary Care Provider, Field Evidence Technician Call Non-Emergent contact if: you have a fever, your pain is not controlled, your pain is worsening, your pain is unusual for you, your pain is concerning you, you have any medication questions or if you start having abdominal distension, nausea or vomiting . . "Provider Documentation" section prepared by Dahlia Lincoln. VTE Core Measure Inpt VTE Proph given/why not?: Enoxaparin (Lovenox)SQ
[2016-06-06 14:44] VITALS: BP 127/73; PULSE 71; TEMP 36.5; O2SAT 97
--- NOTE | 2016-06-08 10:36 | Discharge Summary ---
Discharge Summary Admission Date: May 28, 2016 at 21:36 Discharge Date: Jun 06, 2016 Discharge Disposition: Home Principal Diagnosis: SBO Problems/Secondary Diagnoses: Crohn's disease with h/o two bowel resections in the past CAD s/p CABG Elevated troponin secondary to demand ischemia NSVT H/O CABG and ICD for previous severe systolic CHF- improved Mild mitral regurgitation. Mild tricuspid regurgitation AAA Epistaxis Anemia of chronic disease Thrombocytopenia COPD Procedures: SINGLE VIEW CHEST CLINICAL HISTORY: Generalized abdominal pain. FINDINGS: 2 AP, portable, upright chest radiographs are compared to study dated 02/24/2016 and correlated with chest CT dated 10/06/2014. The examination is degraded by portable technique and patient rotation. A single lead cardiac AICD is unchanged in position and partially obscures the left upper chest. The patient is status post midline sternotomy. The heart is enlarged and there is atherosclerotic calcification of the thoracic aorta. The pulmonary vasculature is noncongested. Advanced emphysema and chronic interstitial thickening is unchanged. No airspace consolidation, pleural effusion, or pneumothorax is seen. Apical scarring is observed. The skeletal structures are osteopenic. The bony thorax is grossly intact. IMPRESSION: 1. Cardiomegaly and AICD. There is no radiographic evidence of congestive failure. 2. Advanced emphysema. 3. No airspace consolidation or pleural effusion is identified. CT SCAN OF THE ABDOMEN AND PELVIS WITHOUT IV CONTRAST CLINICAL HISTORY: Generalized abdominal pain. Vomiting. COMPARISON STUDY: Abdominal CT dated 10/06/2014. TECHNIQUE: CT scan of the abdomen and pelvis is performed from the lung bases to the proximal femora. Images are reviewed in the axial, sagittal, and coronal planes. IV contrast was not administered for this examination as per the referring clinician. Note that the examination was performed and significant suboptimal fashion without oral and IV contrast. Automated dose control exposure was utilized. CT DOSE: 359.02 mGy.cm FINDINGS: Lung bases: Midline sternotomy wires are noted. The heart is enlarged and without pericardial effusion. Pacemaker leads are noted. The coronary arteries are densely calcified. Emphysema is present at the lung bases. No airspace consolidation or pleural effusion is identified. There is a small hiatal hernia. Liver: The unenhanced liver is normal in size and heterogeneous in attenuation. There is nodularity of the hepatic surface contour suggesting early change of cirrhosis. There is no intrahepatic biliary ductal dilatation. There is a 2.6 cm hepatic cyst. Gallbladder: Unremarkable. Spleen: Normal in size and attenuation. Pancreas: The unenhanced pancreas is moderately atrophic and grossly unremarkable. Adrenal glands: Unremarkable. Kidneys: The unenhanced kidneys are atrophic and without hydronephrosis. There are numerous bilateral nonobstructing renal calculi. The largest is in the lower pole of the left kidney measures 1.3 cm. A predominantly fat-containing lesion arising exophytically from the upper pole of left kidney is again seen. This measures 7.2 x 5.8 cm and is typical in appearance for an angiomyolipoma. There are numerous bilateral renal cysts measure up to 3.0 cm. There is a partially exophytic lesion arising from the posterior interpolar left kidney on image #180 measuring 1.8 cm. This does not meet CT criteria for a simple cyst. A subcentimeter complex/hemorrhagic cyst arising from the lower pole of left kidney is unchanged from 2015. Abdominal vasculature: There is advanced atherosclerotic calcification of the abdominal aorta. An infrarenal abdominal aortic aneurysm measures 4.3 x 5.2 cm. Mild aneurysmal dilatation is seen within the common femoral arteries bilaterally. These measure up to 1.8 cm. Bowel: There are postoperative changes from partial bowel resections with ileocolic anastomosis. An additional suture line is seen in the left lower quadrant. There are mildly distended fluid-filled loops of small bowel measuring up to 4.0 cm. There is also distention of the fluid-filled cecum. A few partially decompressed small bowel are seen in the left lower quadrant. No transition point is identified and there is no definite evidence of bowel obstruction. No thick walled bowel loops are identified. There is no pneumatosis intestinalis or portal venous gas. There is mild colonic diverticulosis without CT evidence of acute diverticulitis. Liquid stool seen throughout the right colon. The appendix is not identified and reported surgically absent. Peritoneum: There is no intraperitoneal free air or abdominal ascites. Lymphadenopathy: None. Pelvic viscera: The bladder is normal as visualized. The prostate gland is diminutive. Postoperative change is present in the groin bilaterally. Skeletal structures: The skeletal structures are osteopenic. No lytic or blastic lesions are seen. There is moderate lumbosacral spondylosis as well as scoliosis. Compression deformities are noted involving T12 and L4. IMPRESSION: 1. Significantly suboptimal examination without oral and IV contrast. 2. There are postoperative changes from bowel resections with ileocolic anastomosis. The small bowel loops are mildly distended and fluid-filled and there is distention of the fluid-filled cecum. No transition point is clearly identified and there is no definite evidence of bowel obstruction. This could represent an ileus or possibly a nonspecific enterocolitis. Clinical correlation will be required. 3. Cardiomegaly and emphysema. 4. 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 5. There are numerous bilateral nonobstructing renal calculi. 6. There is a 4.3 x 5.2 cm infrarenal abdominal aortic aneurysm. 7. There are numerous bilateral renal cysts. A 1.8 cm partially exophytic lesion in the interpolar left kidney is not clearly meet CT criteria for a simple cyst but has been present on prior examinations. If clinically warranted, a nonemergent follow-up renal protocol CT or MRI could be considered for further assessment. 8. Findings suggest early changes of cirrhosis. 9. Additional findings as above. Multiple follow up Abdomen xrays-showed resolution of SBO to ileus ECHO: * Left ventricular systolic function is normal. * No regional wall motion abnormalities noted. * Ejection Fraction = 55-60%. * There is mild mitral regurgitation. * There is mild tricuspid regurgitation. Consultations: Cardiology Gastroenterology General Surgery Medication Reconciliation New Medications: Ciprofloxacin (Ciprofloxacin HCl) 500 Mg Tab 500 MG PO BID, #9 TAB Metronidazole (Flagyl) 500 Mg Tab 500 MG PO TID, #14 TAB Calcitonin [place] (Calcitonin-Phoenix) 30 [place]/3.7 Ml Soln 1 SPRAY NA HS for 30 Days, #1 BTL Changed Medications: Docusate Sodium (Docusate Sodium) 100 Mg Cap 100 MG PO BID for 30 Days (Changed from: Removed Reason; Removed Quantity; Removed Instructions) Furosemide (Furosemide) 40 Mg Tab 20 MG PO DAILY for 30 Days (Changed from: Removed Quantity) on Wed Wed Wed Continued Medications: Albuterol (Ventolin Hfa) 60 Puffs/5400 Mcg Aers 2 PUFFS INH q4-6 PRN for Shortness of Breath Aspirin (Aspirin Chewable) 81 Mg Chew 81 MG PO HS B-Complex Vitamins (Vitamin B Complex) 1 Tab Tab 1 TAB PO DAILY Carvedilol (Carvedilol) 6.25 Mg Tab 6.25 MG PO BID, #180 Cholecalciferol (D 1000) 1,000 Unit Cap 1000 UNITS PO DAILY Cyanocobalamin (Vitamin B12) 1,000 Mcg Tab 1000 MCG PO DAILY Fluticasone Prop/Salmeterol (Advair Diskus 250-50 Mcg/Dose) 14 Puff/1 Inhaler Aerp 1 PUFF INH Q12 Folic Acid (Folvite) 1 Mg Tab 1 MG PO DAILY, TAB Lisinopril (Zestril) 5 Mg Tab 5 MG PO DAILY, TAB Magnesium Chloride-Calcium Car (Slow-Mag) 1 Tab Tab 1 TAB PO BID Ocuvite Preservision (Ocuvite Preservision) 1 Tab Tab 1 TAB PO BID, TAB Simvastatin (Zocor) 40 Mg Tab 40 MG PO QPM, TAB Tiotropium Bryan (Spiriva Handihaler) 30 Puff/540 Mcg Aerp 1 CAP INH DAILY, INHALER Referrals At Discharge Follow up Referrals: [employer] Referral - Within 2 Weeks with Roger Mullen M.D. Physician Referral - Within 1 Week with Tr Wild M.D. Discharge Exam Having regular BMs, pat low fiber diet, no abd pain, no N/V on day of discharge , ambulating, feeling very well, afebrile. Review of Systems: Constitutional: No fever Eyes: No problem reported ENT: No unusual epistaxis Respiratory: No cough, No shortness of breath Cardiovascular: No chest pain, No palpitations Abdomen: No GI bleeding, No constipation, No diarrhea, No nausea, No pain, No vomiting Genitourinary - Male: No problem reported Neurologic: No problem reported Psychiatric: No problem reported Endocrine: No problem reported Hematologic / Lymphatic: No problem reported Integumentary: No problem reported Physical Exam: General Appearance: WD/WN, no apparent distress Eyes: normal inspection, sclerae normal ENT: hearing grossly normal, pharynx normal Neck: trachea midline Respiratory/Chest: lungs clear, normal breath sounds, no respiratory distress, no accessory muscle use Cardiovascular: regular rate, rhythm, no edema, no gallop, no murmur, normal peripheral pulses Abdomen / GI: normal bowel sounds, non tender, soft, no organomegaly, no pulsatile mass Extremities: normal inspection, no calf tenderness, no pedal edema, normal range of motion Neurologic/Psychiatric: no motor/sensory deficits, alert, normal mood/affect , oriented x 3 Skin: normal color, warm/dry, no rash Hospital Course 80 M pt admitted for small bowel obstruction with history of Crohn's and two bowel resections in the past, but has CAD and also developed ECG changes and elevated troponin upon admission. Bowel obstruction,NGT to LIS but fell out on 06/01 and not replaced but abdomen became more distended and no flatus at all--> NGT replaced night of 06/01,repeat x ray 06/01 shows persistently dilated loops of bowel c/w PSBO and with some pain. NGT replaced on 06/01. Finally passed large amount flatus on 06/02 but no stool, some improvement 06/03 feeling better, no abd pain, still with flatus passing, Abd xray looks slightly worse though, pt adamant to have NGT out so was removed 06/04 feeling great, no abd pain, pat clears, Xray reviewed and is much improved , had large BM and passing flatus Received PPN x 2 days after being NPO for 7 days. GI questions if after coming off his MTX he was on for years for SLE, maybe Crohn's is flaring up. Continues to improve and now tolerating soft diet, having daily BMs, passing flatus. -continue low fiber diet at home for 1-2 more weeks -d/c'd PPN -continue Cipro and Flagyl in case of Crohn's flare as per GI recommendations--> switch to po for 10 day course upon dc as did seem to help him improve - Surgery following and signed off as no need for surgery -will need MR Enterography or CT Enterography as outpatient but is severely claustrophobic so may need open MRI as outpt -f/u with Dr. Mullen as outpt in 2 weeks Elevated troponin mild and stable, troponin trended downward, likely demand ischemia, ECG with lateral ST and T wave changes improved on repeat ECGs. Having recurrent NSVT runs here, longest was 12 beats-asymptomatic. 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 Chronic systolic CHF historically but ECHO this admission as above with normal EF --continue lisinopril, hold lasix, switch back to po Coreg from IV metoprolol now that pat po -restarted ASA once taking po ECHO showed: * Left ventricular systolic function is normal. * No regional wall motion abnormalities noted. * Ejection Fraction = 55-60%. * There is mild mitral regurgitation. * There is mild tricuspid regurgitation -Appreciate Cardio recommendations-discussed with Dr. Brown -already deemed at moderate risk for AAA repair and would be mod-high risk if needed open abd surgery for adhesive disease which is not needed at this point Epistaxis from NGT stopped with afrin nasal spray and pressure Anemia of chronic disease- not in transfusion range as near 10 gms--> macrocytic and with mild thrombocytopenia as well B12, folate both normal, Fe studies point towards anemia chronic disease -follow CBC 5.2 cm AAA--> [place] the next [place] [facility] [place] clinically stable on albuterol and Spiriva DVT prophylaxis lovenox full code Dispo-to home Total Time Spent: Greater than 30 minutes This includes examination of the patient, discharge planning, medication reconciliation, and communication with other providers. Discharge Instructions Please refer to the electronic Patient Visit Report (Discharge Instructions) for additional information. Follow-Up GI Dr. Mullen in [address] Obando Vascular Surgery for AAA preop appt in [address] Wild within 1 week Additional Copies To Tr Wild M.D.; Vasu Brown, DO; Roger Mullen M.D.
[2016-08-05] MEDS ORDERED: PRED-301 PO (15:08)
[2016-10-14] MEDS ORDERED: CLOP1TAB15 PO (09:35)
== END 2016-06-06 17:15 | disposition home or self-care (01) | DRG 386 ==
LOC: ENRESERVTM → ENRESERVDT → C.EDB 17:45 → C.4E 21:36 → C.MED 05-29 10:25
PROVIDERS: ADMIT Hospitalist; ATTEND Family Medicine
DX: K50.912 Crohn's disease, unspecified, with intestinal obstruction (principal); I24.8 Other forms of acute ischemic heart disease; I47.2 Ventricular tachycardia; I42.9 Cardiomyopathy, unspecified; I50.22 Chronic systolic (congestive) heart failure; I25.10 Atherosclerotic heart disease of native coronary artery without angina pectoris; I34.0 Nonrheumatic mitral (valve) insufficiency; I71.4 Abdominal aortic aneurysm, without rupture; R04.0 Epistaxis; D63.8 Anemia in other chronic diseases classified elsewhere; E78.00 Pure hypercholesterolemia, unspecified; I25.2 Old myocardial infarction; D69.6 Thrombocytopenia, unspecified; I73.9 Peripheral vascular disease, unspecified; J44.9 Chronic obstructive pulmonary disease, unspecified; I48.0 Paroxysmal atrial fibrillation; M32.9 Systemic lupus erythematosus, unspecified; D17.71 Benign lipomatous neoplasm of kidney; I10 Essential (primary) hypertension; Z90.49 Acquired absence of other specified parts of digestive tract; Z95.810 Presence of automatic (implantable) cardiac defibrillator; Z83.3 Family history of diabetes mellitus; Z79.82 Long term (current) use of aspirin; Z87.891 Personal history of nicotine dependence; Z95.5 Presence of coronary angioplasty implant and graft; Z95.1 Presence of aortocoronary bypass graft; E86.0 Dehydration; E53.8 Deficiency of other specified B group vitamins; Z87.19 Personal history of other diseases of the digestive system; Z98.0 Intestinal bypass and anastomosis status; K27.9 Peptic ulcer, site unspecified, unspecified as acute or chronic, without hemorrhage or perforation

== ENCOUNTER → 2016-07-06 | Outpatient (CLI) | payer OTHER, BC ==
[~2016-07-06] MED LIST changes: -ACET325T96 PO; -ACETAMINOPHEN-COD PO; -ALBUAER19 INH; +CEPH500C PO; -CHOL100010 PO; +CHOL100041 PO; +CLOP1TAB15 PO; -CLOP1TAB5 PO; +CPR500 PO; +DOCU100C31 PO; -HYDR200T5 PO; -LDXCR60 TOP; +MCLIN; -METH2.5T PO; +PRED-301 PO; +PRVHFAIN INH; +SPRIN/30 INH; -TIOTCAP INH; -[UNRECOGNIZED DRUG - CODE] PO
--- NOTE | 2016-07-06 16:17 | DIAGNOSTIC IMAGING REPORT ---
CHEST 2 VIEWS ROUTINE CLINICAL HISTORY: Atypical chest pain. Cough. COMPARISON STUDY: 06/03/2016 FINDINGS: The chest is emphysematous configuration. There are postsurgical changes of midline sternotomy. There is a left subclavian minimal defibrillator present. There is no failure. There is no focal pulmonary consolidation. There are no pleural effusions. There is a severe mid thoracic compression fracture. This is developed since a prior February 2016 study. There is also a mild to moderate midthoracic compression deformity.[ IMPRESSION: 1. Thoracic spine compression deformities, new since February 2016 2. Emphysema 3. No evidence of focal pulmonary consolidation Electronically signed by: David Mondragon M.D. 07/06/2016 4:15 PM Dictated Date/Time: 07/06/2016 4:14 PM
== END | disposition home or self-care (01) ==
LOC: C.RAD1850 15:13
PROVIDERS: ATTEND Allergy & Immunology Allergy
DX: R07.81 Pleurodynia (principal)

== ENCOUNTER → 2016-07-22 | Outpatient (CLI) | payer OTHER, BC ==
[~2016-07-22] MED LIST changes: -CPR500 PO; +FURO-85 PO
--- NOTE | 2016-07-22 11:37 | DIAGNOSTIC IMAGING REPORT ---
CHEST CT WITHOUT CONTRAST CT DOSE: 298.58 mGycm HISTORY: Abnormal chest x-ray. Follow-up. TECHNIQUE: Multiaxial CT images of the chest were performed without contrast. COMPARISON: Chest 07/06/2016. Chest and abdominal series 06/03/2016. Chest CT 10/06/2014. FINDINGS: The central airways are patent. No pneumothorax. No pleural effusions. Advanced emphysema is again noted. Slight progression of the partially calcified biapical densities suggesting fibrocalcific changes/scarring. Stable 5 mm nodular density within the left lung apex on image 43 of 356. This also favors area of scarring. A 3 mm nodule within the left upper lobe on image 169. Similar smaller groundglass densities within the lingula medially may represent scarring. Small cluster of nodular densities within the base of the left lower lobe. Dominant nodule measures 7 mm on image 269. Small linear scarlike density within the periphery the right upper lobe on image 102. In conjunction with the area of focal sclerosis within the right anterior third rib, this likely accounts for the abnormality seen on the prior chest x-ray. The area of rib sclerosis favors an old, healed fracture. 3 mm nodule within the right upper lobe on image 126. Small cluster of nodular densities within the lateral segment of the right middle lobe with the largest measuring 5 mm. Poststernotomy changes. Left-sided pacemaker. Moderate anterior wedge-shaped compression fractures at T6 and T9 are again noted. No mediastinal hilar lymphadenopathy. Decrease in size in the 6.8 cm fat and soft tissue containing left renal angiomyolipoma. Left-sided nephrolithiasis. IMPRESSION: 1. Abnormality seen within the right upper lobe on the prior study likely represents a combination of a linear scarlike density and overlying old right anterior third rib fracture. 2. Biapical scarlike density is again noted. There are slight progression of the soft tissue thickening associated with the right apical scarlike density. Six-month chest CT follow-up is recommended to ensure stability. 3. Small clusters of nodular densities seen within the base of the left lower lobe and right middle lobe which favor mild inflammatory/infectious change. This also requires six-month follow-up to ensure resolution. 4. Advanced emphysema. 5. Decrease in size in the 6.8 cm left renal angiomyolipoma. Typically, these lesions of this size are resected to prevent acute hemorrhage. Urology consultation is recommended. 6. Additional changes as described above. Electronically signed by: Dayo Kim M.D. 07/22/2016 11:36 AM Dictated Date/Time: 07/22/2016 11:08 AM
== END | disposition home or self-care (01) ==
LOC: C.CTS 09:42
PROVIDERS: ATTEND Physician Assistant Medical
DX: R91.8 Other nonspecific abnormal finding of lung field (principal); J43.9 Emphysema, unspecified; D17.79 Benign lipomatous neoplasm of other sites

== ENCOUNTER → 2016-10-12 | Outpatient (CLI) | payer OTHER, BC ==
--- NOTE | 2016-10-12 17:14 | DIAGNOSTIC IMAGING REPORT ---
MANDIBLE MIN 4 VIEWS ROUTINE CLINICAL HISTORY: JAW PAIN COMPARISON STUDY: None. FINDINGS: No fracture or dislocation within the mandible. 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 No reactions identified. The maxillary teeth are absent. There are few teeth remaining within the mandible anteriorly. IMPRESSION: 1. No fracture or dislocation within the mandible. 2. 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 Electronically signed by: Dayo Kim M.D. 10/12/2016 5:12 PM Dictated Date/Time: 10/12/2016 5:11 PM
== END | disposition home or self-care (01) ==
LOC: C.RADBC 16:23
PROVIDERS: ATTEND Nurse Practitioner
DX: M26.629 Arthralgia of temporomandibular joint, unspecified side (principal)

== ENCOUNTER 2016-11-05 19:30 | Emergency (ER) | payer OTHER, BC ==
[~2016-11-05] VITALS: Ht 182.9 cm; Wt 73.5 kg
[~2016-11-05 19:30] MED LIST changes: -CEPH500C PO; -DOCU100C31 PO; -FURO-85 PO
[2016-11-05 19:36] VITALS: TEMP 36.7; Ht 182.9 cm; Wt 73.5 kg
[2016-11-05 20:35] LABS: URINE APPEARANCE CLOUDY (CLEAR); URINE COLOR ORANGE; URINE EPITHELIAL CELL AUTO >30 /lpf (0-5); URINE NITRITE NEG (NEG); URINE PH 5.5 (4.5-7.5); URINE SPECIFIC GRAVITY 1.021 (1.000-1.030); UROBILINOGEN NEG (NEG); ZZUR CULT IF INDIC CLEAN CATCH NO
[2016-11-05 20:44] LABS: MANUAL MICROSCOPIC REQUIRED? NO; REVIEW REQ? YES; URINE BILIRUBIN NEG (NEG)
[2016-11-05] MEDS ORDERED: DOCU100C31 PO (20:51)
[2016-11-05 21:56] LABS: HEMATOCRIT 29.9 % (42-52); MEAN CELL VOLUME 97.7 fL (80-100); MEAN CORPUSCULAR HEMOGLOBIN 30.1 pg (25-34); MEAN CORPUSCULAR HGB CONC 30.8 g/dl (32-36); MEAN PLATELET VOLUME 9.4 fL (7.4-10.4); PLATELET COUNT 126 K/uL (130-400); RED BLOOD COUNT 3.06 M/uL (4.7-6.1); WHITE BLOOD COUNT 1.24 K/uL (4.8-10.8)
[2016-11-05 22:01] LABS: COMPLETE YES; EOSINOPHIL % 1.8 %; LYMPH ABS # 0.29 K/uL (1.2-3.4); LYMPHOCYTE % 23.2 %; META ABS # 0.01 K/uL (0-0); METAMYELOCYTE % 0.9 %; NEUTROPHILS % 44.6 %
[2016-11-05 22:04] LABS: ALKALINE PHOSPHATASE 78 U/L (45-117); ALT/SGPT 17 U/L (12-78); AST/SGOT 22 U/L (15-37); BLOOD UREA NITROGEN 19 mg/dl (7-18); BUN/CREATININE RATIO 25.2 (10-20); CALCIUM 8.4 mg/dl (8.5-10.1); CARBON DIOXIDE 26 mmol/L (21-32); CHLORIDE 103 mmol/L (98-107); CREATININE 0.75 mg/dl (0.60-1.40); GLUCOSE 93 mg/dl (70-99); POTASSIUM 3.9 mmol/L (3.5-5.1); SODIUM 136 mmol/L (136-145)
--- NOTE | 2016-11-05 22:19 | DIAGNOSTIC IMAGING REPORT ---
CT OF THE ABDOMEN AND PELVIS WITHOUT CONTRAST, STONE PROTOCOL CLINICAL HISTORY: Hematuria. COMPARISON STUDY: CT of the abdomen and pelvis May 28, 2016 and abdominal series June 06, 2016. TECHNIQUE: Helical axial images of the abdomen and pelvis were obtained without IV or oral contrast according to renal stone protocol. A dose lowering technique was utilized adhering to the principles of ALARA. FINDINGS: Visualized portions of the lower chest demonstrate moderate emphysema. There is no hydronephrosis or hydroureter. Numerous bilateral renal calculi are noted. The largest is a 1.2 cm left renal calculus. No ureteral calculi are present. 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 There are numerous bilateral renal lesions. The majority of these measure water attenuation reflect cysts. These are suboptimally assessed on this unenhanced exam. Note is again made of an intermediate attenuation 2 cm lesion within the midpole of the left kidney. This is indeterminate. A 5.2 x 4.4 cm infrarenal abdominal aortic aneurysm is unchanged since prior CT. There is no evidence for rupture. A few hepatic cysts are noted. There is slight nodularity liver surface. There is no evidence for a bowel obstruction. Bowel anastomoses are noted. There is sigmoid diverticulosis without evidence for acute diverticulitis. Old L4 compression deformity is noted. IMPRESSION: 1. Bilateral nephrolithiasis. No ureteral calculi or hydronephrosis. Decreased sensitivity for detection of urothelial lesions on this unenhanced CT. 2. 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 Redemonstration of an indeterminate 2 cm left renal lesion. 3. 5.2 x 4.4 cm infrarenal abdominal aortic aneurysm which is similar to CT of May 28, 2016. No rupture. Electronically signed by: Miguel Catherine M.D. 11/05/2016 10:17 PM Dictated Date/Time: 11/05/2016 10:06 PM
[2016-11-05] MEDS ORDERED: CEPH500C PO (23:03)
[2016-11-05 23:15] VITALS: BP 138/86; PULSE 76; O2SAT 96
[2016-11-05] MEDS ORDERED: CEPHALEXIN 500MG HOME PACK 1 EA BTL PO ONE (23:15)
--- NOTE | 2016-11-06 01:26 | EMERGENCY ROOM VISIT NOTE ---
History Report prepared by Chapito: Brooklyn Navas Under the Supervision of: Dr. Markel Israel M.D. First contact with patient: 20:53 Chief Complaint: URINARY SYMPTOMS Stated Complaint: PASSING BLOOD IN URINE Nursing Triage Summary: Patient has a history of kidney stones. Patient started having bloody urine this morning which has lasted throughout the day today. Patient does take Plavix after having a carotid cleaning on the right neck. Patient is due to have an injection in his thoracic spine next week so he was stopping the plavix after his dose today. Patient denies any lightheadedness or weakness; no dizziness. History of Present Illness The patient is an 80 year old male who presents to the Emergency Room with complaints of an episode of urinary symptoms starting early this morning. The patient states that he woke up this morning and noticed a strong smell to his urine. He states he assumed he just needed to drink more water. The patient states that he then noticed that it was bloody. He reports that it seemed like it was much more than a tinge of blood. The patient notes a history of kidney stones but, has never had this much blood in his urine before. The patient denies abdominal pain, fever, vomiting, melena, hematochezia, and back pain. The patient notes he took Plavix today, but it is the last one so he can have his back operated on. Source of History: patient Onset: early this morning Position: other (global) Quality: other (global) Timing: other (episode) Associated Symptoms: No fevers, No vomiting, No abdominal pain, No back pain , No melena, No hematochezia Review of Systems See HPI for pertinent positives & negatives. A total of 10 systems reviewed and were otherwise negative. Past Medical & Surgical Medical Problems: (1) Bowel resection (2) Crohn's disease (3) Enterocolitis (4) Intractable vomiting with nausea (5) Lupus Family History Omitted due to advanced age Social History Smoking Status: Former Smoker Drug Use: none Marital Status: Housing Status: lives with family Occupation Status: retired Current/Historical Medications Scheduled Aspirin (Aspirin Chewable), 81 MG PO HS B-Complex Vitamins (Vitamin B Complex), 1 TAB PO DAILY Carvedilol (Carvedilol), 6.25 MG PO BID Cephalexin Monohydrate (Keflex), 500 MG PO TID Cholecalciferol (D 1000), 1,000 UNITS PO DAILY Clopidogrel (Plavix), 75 MG PO DAILY Cyanocobalamin (Vitamin B12), 1,000 MCG PO DAILY Docusate Sodium (Docusate Sodium), 1 CAP PO DAILY Fluticasone Prop/Salmeterol (Advair Diskus 250-50 Mcg/Dose), 1 PUFF INH Q12 Folic Acid (Folvite), 1 MG PO DAILY Furosemide (Furosemide), 20 MG PO DAILY Lisinopril (Zestril), 5 MG PO DAILY Ocuvite Preservision (Ocuvite Preservision), 1 TAB PO BID Simvastatin (Zocor), 40 MG PO QPM Tiotropium Mcgregor (Spiriva Handihaler), 1 CAP INH DAILY Scheduled PRN Albuterol (Ventolin Hfa), 2 PUFFS INH q4-6 PRN for Shortness of Breath Allergies Coded Allergies: Ibuprofen (Verified Allergy, Unknown, ileus, 05/28/16) Morphine (Verified Allergy, Unknown, PATIENT GETS AN ILEUS, 05/28/16) IF PATIENT IS UNABLE TO MOVE AND WALK AFTER RECEIVING ANY NARCOTICS, HE WILL GET AN ILEUS. Uncoded Allergies: NARCOTICS (Allergy, Unknown, ILEUS, 09/01/13) IF PATIENT IS UNABLE TO MOVE AND WALK AFTER RECEIVING ANY NARCOTICS, HE WILL GET AN ILEUS. Physical Exam Vital Signs Date Time Temp Pulse Resp B/P (MAP) Pulse Ox O2 Delivery O2 Flow Rate FiO2 11/05/16 23:15 76 18 138/86 96 11/05/16 22:18 66 18 137/84 95 Room Air 11/05/16 19:36 36.7 84 16 122/74 94 Room Air Physical Exam Constitutional: Vital signs reviewed. Eyes: Pupils are equal round reactive to light. Conjunctiva are noninjected. ENT: Pharynx is clear without erythema or exudate. Mucous membranes are moist. Neck supple without meningeal signs. Respiratory: Clear to auscultation bilaterally. Breath sounds are equal bilaterally. Cardiovascular: Regular rate and rhythm. No rubs or gallops. GI: Soft, nondistended and nontender. Bowel sounds are present. Musculoskeletal: No peripheral edema. No CVA tenderness. Integumentary: No cyanosis. Neurological: The patient is awake and alert. No focal deficits. Psychiatric: Normal affect. Medical Decision & Procedures ER Provider Diagnostic Interpretation: Radiology results as stated below per my review and the radiologist's interpretation: CT OF THE ABDOMEN AND PELVIS WITHOUT CONTRAST, STONE PROTOCOL CLINICAL HISTORY: Hematuria. COMPARISON STUDY: CT of the abdomen and pelvis May 28, 2016 and abdominal series June 06, 2016. TECHNIQUE: Helical axial images of the abdomen and pelvis were obtained without IV or oral contrast according to renal stone protocol. A dose lowering technique was utilized adhering to the principles of ALARA. FINDINGS: Visualized portions of the lower chest demonstrate moderate emphysema. There is no hydronephrosis or hydroureter. Numerous bilateral renal calculi are noted. The largest is a 1.2 cm left renal calculus. No ureteral calculi are present. 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 There are numerous bilateral renal lesions. The majority of these measure water attenuation reflect cysts. These are suboptimally assessed on this unenhanced exam. Note is again made of an intermediate attenuation 2 cm lesion within the midpole of the left kidney. This is indeterminate. A 5.2 x 4.4 cm infrarenal abdominal aortic aneurysm is unchanged since prior CT. There is no evidence for rupture. A few hepatic cysts are noted. There is slight nodularity liver surface. There is no evidence for a bowel obstruction. Bowel anastomoses are noted. There is sigmoid diverticulosis without evidence for acute diverticulitis. Old L4 compression deformity is noted. IMPRESSION: 1. Bilateral nephrolithiasis. No ureteral calculi or hydronephrosis. Decreased sensitivity for detection of urothelial lesions on this unenhanced CT. 2. 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 Redemonstration of an indeterminate 2 cm left renal lesion. 3. 5.2 x 4.4 cm infrarenal abdominal aortic aneurysm which is similar to CT of May 28, 2016. No rupture. Electronically signed by: Miguel Catherine M.D. 11/05/2016 10:17 PM Dictated Date/Time: 11/05/2016 10:06 PM Laboratory Results 11/05/16 21:15 Red Blood Count 3.06, Mean Corpuscular Volume 97.7, Mean Corpuscular Hemoglobin 30.1, Mean Corpuscular Hemoglobin Concent 30.8, Mean Platelet Volume 9.4 11/05/16 21:15 Test 11/05/16 20:05 11/05/16 21:15 Urine Color ORANGE Urine Appearance CLOUDY (CLEAR) Urine pH 5.5 (4.5-7.5) Urine Specific [place] 1.021 (1.000-1.030) Urine Protein 3+ (NEG) Urine Glucose (UA) NEG (NEG) Urine Ketones NEG (NEG) Urine Occult Blood 3+ (NEG) Urine Nitrite NEG (NEG) Urine Bilirubin NEG (NEG) Urine Urobilinogen NEG (NEG) Urine Leukocyte Esterase SMALL (NEG) Urine WBC (Auto) 5-10 /hpf (0-5) Urine RBC (Auto) >30 /hpf (0-4) Urine Hyaline Casts (Auto) 1-5 /lpf (0-5) Urine Epithelial Cells (Auto) >30 /lpf (0-5) Urine Bacteria (Auto) NEG (NEG) Urine Renal Epithelial Cells /lpf (0-5) White Blood Count 1.24 K/uL (4.8-10.8) Red Blood Count 3.06 M/uL (4.7-6.1) Hemoglobin 9.2 g/dL (14.0-18.0) Hematocrit 29.9 % (42-52) Mean Corpuscular Volume 97.7 fL (80-100) Mean Corpuscular Hemoglobin 30.1 pg (25-34) Mean Corpuscular Hemoglobin Concent 30.8 g/dl (32-36) Platelet Count 126 K/uL (130-400) Mean Platelet Volume 9.4 fL (7.4-10.4) RDW Standard Deviation 57.7 fL (36.4-46.3) RDW Coefficient of Variation 16.5 % (11.5-14.5) Neutrophils % (Manual) 44.6 % Lymphocytes % (Manual) 23.2 % Monocytes % (Manual) 29.5 % Eosinophils % (Manual) 1.8 % Metamyelocytes % 0.9 % Neutrophils # (Manual) 0.55 K/uL (1.4-6.5) Total Absolute Neutrophils 0.55 K/uL (1.4-6.5) Lymphocytes # (Manual) 0.29 K/uL (1.2-3.4) Total Absolute Lymphocytes 0.29 K/uL (1.2-3.4) Monocytes # (Manual) 0.37 K/uL (0.11-0.59) Eosinophils # (Manual) 0.02 K/uL (0-0.5) Metamyelocytes # 0.01 K/uL (0-0) Anion Gap 7.0 mmol/L (3-11) Est Creatinine Clear Calc Drug Dose 81.7 ml/min Estimated GFR () 100.4 Estimated GFR (Non- 86.6 BUN/Creatinine Ratio 25.2 (10-20) Calcium Level 8.4 mg/dl (8.5-10.1) Total Bilirubin 0.2 mg/dl (0.2-1) Direct Bilirubin mg/dl (0-0.2) Aspartate Amino Transf (AST/SGOT) 22 U/L (15-37) Alanine Aminotransferase (ALT/SGPT) 17 U/L (12-78) Alkaline Phosphatase 78 U/L (45-117) Total Protein 7.5 gm/dl (6.4-8.2) Albumin 3.0 gm/dl (3.4-5.0) Lipase 237 U/L (73-393) Chemistry Specimen Hemolysis Laboratory results as reviewed by me. Medications Administered Medications (Trade) Dose Ordered Sig/Liya Route Start Time Stop Time Status Last Admin Dose Admin Cephalexin Monohydrate (Keflex 500MG Home Pack) 1 homepack NOW ONCE PO 11/05/16 23:15 11/05/16 23:16 DC 11/05/16 23:11 1 HOMEPACK ED Course 2054: The patient was evaluated in room C8. A complete history and physical exam was performed. 2212: I discussed the test result wiht the patient and his family. They state he has been pancytopenic and neutropenic for years. They state that he has been seen at the [facility] for it. 2300: Upon reevaluation, the patient appeared to have improvement of his symptoms. I discussed tonight's findings with the patient. He verbalized agreement of the treatment plan. The patient was discharged home. 5: Ordered Keflex 500MG Home Pack 1 homepack PO. Medical Decision This is an 80-year-old male who presents with hematuria. Differential diagnosis includes renal mass, renal cell carcinoma, UTI, kidney stone, bladder mass, anemia. I did perform a limited focused review of portions of the patient 's old chart on the electronic medical record. The patient has had no recent pertinent visits to this hospital. Medication Reconciliation: I attest that I have personally reviewed the patient' s current medication list. Blood Pressure Screening: Patient was found to have normal blood pressure on screening and does not require follow-up. I did evaluate the patient as noted above. The patient is presenting with painless hematuria. IV access was established. I did order and personally review the patient's urinalysis as described above. He does have hematuria. It is equivocal for infection. A urine culture was sent. I did order and review the patient's blood work as noted in the electronic medical record. The patient is neutropenic and pancytopenic. I did order a CT of the abdomen and pelvis. I did review the images myself as well as the radiology report as described above. He does have intrarenal calculi. He also has a left renal unspecified mass as well as a angiomyolipoma. He also has a stable abdominal aortic aneurysm without signs of dissection or rupture. I did discuss the test results with the patient. He states that he has been pancytopenic and neutropenic many times in the past. He has been evaluated by specialists at [facility] for this. He has no fever. He also knows about the CT findings. He will follow up with his doctor as well as Dr. Rabago of urology for further workup. I did treat him with Keflex and discharged with a prescription for Keflex. He was given return instructions as outlined below. Impression Primary Impression: Gross hematuria Additional Impressions: Pancytopenia Neutropenia AAA (abdominal aortic aneurysm) Scribe Attestation The scribe's documentation has been prepared under my direct and personally reviewed by me in its entirety. I confirm that the note above accurately reflects all work, treatment, procedures, and medical decision making performed by me. Departure Information Dispostion Home / Self-Care Prescriptions Cephalexin Monohydrate (Keflex) 500 Mg Cap 500 MG PO TID, #28 CAP Prov: Markel Israel M.D. 11/05/16 Referrals Tr Wild M.D. (PCP) Forms HOME CARE DOCUMENTATION FORM, IMPORTANT VISIT INFORMATION Patient Instructions My [facility] Additional Instructions You have been examined and treated today on an emergency basis only. This is not a substitute for, or an effort to provide, complete comprehensive medical care. It is impossible to recognize and treat all injuries or illnesses in a single emergency department visit. It is therefore important that you follow up closely with your physician and urologist. Call as soon as possible for an appointment. Return for worsening symptoms or if you develop fever, vomiting, abdominal pain or any other concerning symptoms. Problem Qualifiers Additional Impressions: Neutropenia Neutropenia type: unspecified Qualified Codes: D70.9 - Neutropenia, unspecified AAA (abdominal aortic aneurysm) Presence of rupture: without rupture Qualified Codes: I71.4 - Abdominal aortic aneurysm, without rupture
--- NOTE | 2016-11-06 12:45 | Pharmacy Progress Note ---
ED Pharmacist Progress Note Date of Service: Nov 06, 2016. Patient's called asking what dose of Keflex her should be taking. They received a home pack yesterday with directions to take one 500mg capsule 4 x daily. The new Rx that they filled today says to take one 500mg capsule 3x daily. I reviewed the Rx that Dr Israel had given. The Rx was for 500mg 3x daily which would be appropriate dosage for treatment of UTI. I advised the that he should be taking 500mg [address] Israel had written on the new Rx and not per the home pack directions.
== END 2016-11-05 23:15 | disposition home or self-care (01) ==
LOC: C.EDB 19:32 → C.EDC 23:15
DX: R31.0 Gross hematuria (principal); D61.818 Other pancytopenia; D70.9 Neutropenia, unspecified; I71.4 Abdominal aortic aneurysm, without rupture; D17.9 Benign lipomatous neoplasm, unspecified; N28.89 Other specified disorders of kidney and ureter; K50.90 Crohn's disease, unspecified, without complications; M32.9 Systemic lupus erythematosus, unspecified; Z87.891 Personal history of nicotine dependence; Z90.49 Acquired absence of other specified parts of digestive tract; Z79.02 Long term (current) use of antithrombotics/antiplatelets; Z79.82 Long term (current) use of aspirin

== ENCOUNTER 2016-11-07 17:23 | Emergency (ER) | payer OTHER, BC ==
[~2016-11-07] VITALS: Ht 182.9 cm; Wt 73.2 kg
[~2016-11-07 17:23] MED LIST changes: +CEPH500C PO; -CLC100 PO; +DOCU100C31 PO; -MAGNTAB17 PO; -MCLIN; -PRED-301 PO
[2016-11-07 17:26] VITALS: TEMP 36.8; Ht 182.9 cm; Wt 73.2 kg
[2016-11-07] MEDS ORDERED: SODIUM CHLORIDE 0.9% 1000ML 250 ML IV STA (17:36)
--- NOTE | 2016-11-07 17:47 | EMERGENCY ROOM VISIT NOTE ---
History Report prepared by Chapito: Sohail Ely Under the Supervision of: Dr. Damian Rivera M.D. First contact with patient: 17:29 Chief Complaint: URINARY SYMPTOMS Stated Complaint: DARK URINE History of Present Illness The patient is an 80 year old male who presents to the Emergency Room with complaints of continued hematuria that the patient first noticed two days prior to arrival. The patient was in the Emergency Department two days ago for similar symptoms. He notes that he has a history of chronic kidney stones, but has never had blood in the urine before. The patient is not having any urinary difficulties and has not experienced any issues voiding. He also denies any flank pain currently. He was on Plavix, but has not had a dosage in the past two days. He is still taking Aspirin as a blood thinner. The patient has an appointment set up with Urology this coming Wednesday. 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 A total of 10 systems reviewed and were otherwise negative. Past Medical & Surgical Medical Problems: (1) Bowel resection (2) Crohn's disease (3) Enterocolitis (4) Intractable vomiting with nausea (5) Lupus Family History Omitted due to advanced age Social History Smoking Status: Never Smoker Drug Use: none Marital Status: Housing Status: lives with family Occupation Status: retired Current/Historical Medications Scheduled Aspirin (Aspirin Chewable), 81 MG PO HS B-Complex Vitamins (Vitamin B Complex), 1 TAB PO DAILY Carvedilol (Carvedilol), 6.25 MG PO BID Cephalexin Monohydrate (Keflex), 500 MG PO TID Cholecalciferol (D 1000), 1,000 UNITS PO DAILY Clopidogrel (Plavix), 75 MG PO DAILY Cyanocobalamin (Vitamin B12), 1,000 MCG PO DAILY Docusate Sodium (Docusate Sodium), 1 CAP PO DAILY Fluticasone Prop/Salmeterol (Advair Diskus 250-50 Mcg/Dose), 1 PUFF INH Q12 Folic Acid (Folvite), 1 MG PO DAILY Furosemide (Furosemide), 20 MG PO DAILY Lisinopril (Zestril), 5 MG PO DAILY Ocuvite Preservision (Ocuvite Preservision), 1 TAB PO BID Simvastatin (Zocor), 40 MG PO QPM Tiotropium [place] (Spiriva Handihaler), 1 CAP INH DAILY Scheduled PRN Albuterol (Ventolin Hfa), 2 PUFFS INH q4-6 PRN for Shortness of Breath Allergies Coded Allergies: Ibuprofen (Verified Allergy, Unknown, ileus, 11/07/16) Morphine (Verified Allergy, Unknown, PATIENT GETS AN ILEUS, 11/07/16) IF PATIENT IS UNABLE TO MOVE AND WALK AFTER RECEIVING ANY NARCOTICS, HE WILL GET AN ILEUS. Uncoded Allergies: NARCOTICS (Allergy, Unknown, ILEUS, 09/01/13) IF PATIENT IS UNABLE TO MOVE AND WALK AFTER RECEIVING ANY NARCOTICS, HE WILL GET AN ILEUS. Physical Exam Vital Signs Date Time Temp Pulse Resp B/P (MAP) Pulse Ox O2 Delivery O2 Flow Rate FiO2 11/07/16 19:39 72 130/74 91 Room Air 11/07/16 18:10 80 11/07/16 17:26 36.8 74 16 136/69 94 Room Air Physical Exam GENERAL: Patient is in no acute distress. HEENT: No acute trauma, normocephalic atraumatic, mucous membranes moist, no nasal congestion, no scleral icterus. NECK: No stridor, no adenopathy, no meningismus, trachea is midline. LUNGS: Clear to auscultation bilaterally, no wheeze, no rhonchi, breath sounds equal. HEART: Without murmurs gallops or rubs, regular rate and rhythm. ABDOMEN: Soft, mildly tender over the bladder. Bowel sounds positive, no hernias , no peritonitis. EXTREMITIES: No cyanosis or edema, full range of motion of all the joints without pain or difficulty, no signs for acute trauma. NEUROLOGIC: Oriented x 3, no acute motor or sensory deficits, no focal weakness. SKIN: No rash, no jaundice, no diaphoresis. Medical Decision & Procedures ER Provider Diagnostic Interpretation: Radiology results as stated below per my review and radiologist interpretation: CT OF THE ABDOMEN AND PELVIS WITH CONTRAST CLINICAL HISTORY: Abdominal pain. Hematuria. COMPARISON STUDY: CT of the abdomen and pelvis November 05, 2016. TECHNIQUE: Following IV administration of 94 mL of Optiray-320, axial images of the abdomen and pelvis were obtained from the lung bases to the proximal femurs. Images were reviewed in the axial, sagittal, and coronal planes. IV contrast was administered without complication. A dose lowering technique was utilized adhering to the principles of ALARA. CT DOSE: 299.42 mGy.cm FINDINGS: Pacer leads are partially imaged. A 2.5 cm segment 4 hepatic cyst is present. There are no solid hepatic lesions. The spleen, adrenal glands and pancreas are unremarkable. A 6.8 x 6 cm fat-containing lesion arising from the upper pole of the left kidney is unchanged since prior exam. This is consistent with an angiomyolipoma. There is no adjacent hemorrhage. There are innumerable bilateral renal lesions. The majority of these measure water attenuation reflect cysts. Numerous lesions are too small to characterize. A few hyperdense lesions are unchanged from earlier studies and are therefore likely benign. There is a 5.3 x 4.5 cm infrarenal abdominal aortic aneurysm. This has mildly increased in size since CT of October 06, 2014 when it measured 5 x 4 cm. There is no rupture. There is extensive aortoiliac atherosclerotic plaque. There is no bowel obstruction. Multiple bilateral renal calculi are noted, including a 1.2 cm left renal calculus. There are no ureteral calculi. Sensitivity for detection of urothelial lesions is diminished given lack of delayed phase imaging. However, none are identified. Old L4 compression fracture is noted. IMPRESSION: 1. Extensive bilateral nephrolithiasis. No ureteral calculi or hydronephrosis. Decreased sensitivity for detection of urothelial lesions given lack of delayed phase imaging. 2. 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 No adjacent hemorrhage. 3. 5.3 x 4.5 cm infrarenal abdominal aortic aneurysm which has mildly increased in size since CT of October 06, 2014. No rupture. Extensive aortoiliac atherosclerotic plaque. Electronically signed by: Miguel Catherine M.D. 11/07/2016 7:25 PM Dictated Date/Time: 11/07/2016 7:10 PM Laboratory Results 11/07/16 18:00 Red Blood Count 3.09, Mean Corpuscular Volume 96.8, Mean Corpuscular Hemoglobin 31.4, Mean Corpuscular Hemoglobin Concent 32.4, Mean Platelet Volume 9.3, Neutrophils (%) (Auto) 30.2, Lymphocytes (%) (Auto) 32.5, Monocytes (%) (Auto) 34.9, Eosinophils (%) (Auto) 1.6, Basophils (%) (Auto) 0.0, Neutrophils # (Auto ) 0.38, Lymphocytes # (Auto) 0.41, Monocytes # (Auto) 0.44, Eosinophils # (Auto ) 0.02, Basophils # (Auto) 0.00 11/07/16 18:00 Test 11/07/16 18:00 11/07/16 19:20 White Blood Count 1.26 K/uL (4.8-10.8) Red Blood Count 3.09 M/uL (4.7-6.1) Hemoglobin 9.7 g/dL (14.0-18.0) Hematocrit 29.9 % (42-52) Mean Corpuscular Volume 96.8 fL (80-100) Mean Corpuscular Hemoglobin 31.4 pg (25-34) Mean Corpuscular Hemoglobin Concent 32.4 g/dl (32-36) Platelet Count 119 K/uL (130-400) Mean Platelet Volume 9.3 fL (7.4-10.4) Neutrophils (%) (Auto) 30.2 % Lymphocytes (%) (Auto) 32.5 % Monocytes (%) (Auto) 34.9 % Eosinophils (%) (Auto) 1.6 % Basophils (%) (Auto) 0.0 % Neutrophils # (Auto) 0.38 K/uL (1.4-6.5) Lymphocytes # (Auto) 0.41 K/uL (1.2-3.4) Monocytes # (Auto) 0.44 K/uL (0.11-0.59) Eosinophils # (Auto) 0.02 K/uL (0-0.5) Basophils # (Auto) 0.00 K/uL (0-0.2) RDW Standard Deviation 57.7 fL (36.4-46.3) RDW Coefficient of Variation 16.5 % (11.5-14.5) Immature Granulocyte % (Auto) 0.8 % Immature Granulocyte # (Auto) 0.01 K/uL (0.00-0.02) Prothrombin Time 10.9 SECONDS (9.0-12.0) Prothromb Time International Ratio 1.0 (0.9-1.1) Activated Partial Thromboplast Time 29.6 SECONDS (21.0-31.0) Partial Thromboplastin Ratio 1.1 Anion Gap 4.0 mmol/L (3-11) Est Creatinine Clear Calc Drug Dose 100.0 ml/min Estimated GFR () 109.3 Estimated GFR (Non- 94.3 BUN/Creatinine Ratio 28.5 (10-20) Calcium Level 8.9 mg/dl (8.5-10.1) Total Bilirubin 0.3 mg/dl (0.2-1) Aspartate Amino Transf (AST/SGOT) 17 U/L (15-37) Alanine Aminotransferase (ALT/SGPT) 16 U/L (12-78) Alkaline Phosphatase 80 U/L (45-117) Total Protein 7.7 gm/dl (6.4-8.2) Albumin 3.2 gm/dl (3.4-5.0) Globulin 4.5 gm/dl (2.5-4.0) Albumin/Globulin Ratio 0.7 (0.9-2) Urine Color RED Urine Appearance CLOUDY (CLEAR) Urine pH 6.0 (4.5-7.5) Urine Specific [place] 1.035 (1.000-1.030) Urine Protein 2+ (NEG) Urine Glucose (UA) NEG (NEG) Urine Ketones NEG (NEG) Urine Occult Blood 3+ (NEG) Urine Nitrite NEG (NEG) Urine Bilirubin NEG (NEG) Urine Urobilinogen NEG (NEG) Urine Leukocyte Esterase SMALL (NEG) Urine WBC (Auto) 1-5 /hpf (0-5) Urine RBC (Auto) >30 /hpf (0-4) Urine Hyaline Casts (Auto) 0 /lpf (0-5) Urine Epithelial Cells (Auto) 5-10 /lpf (0-5) Urine Bacteria (Auto) 1+ (NEG) Urine Pathogenic Casts /lpf (0) Laboratory results reviewed by me. Medications Administered Medications (Trade) Dose Ordered Sig/Liya Route Start Time Stop Time Status Last Admin Dose Admin Sodium Chloride 250 ml @ 999 mls/hr Q16M STAT IV 11/07/16 17:36 11/07/16 17:51 DC 11/07/16 17:36 999 MLS/HR ED Course 1733: The patient was evaluated in room A12B. A complete history and physical exam was performed. 1735: Ordered Sodium Chloride 250 mL @ 999 mL/hr IV. 1956: I reevaluated the patient at this time. He is doing well. 2004: I discussed the case with Dr. Gem Blanton at this time. He states that he needs a cystoscopy. We will wait for a consult with hematology. 2034: I discussed the case with Juliette Noyola - Nurse Practitioner at this time. She states that the patient can be sent home, with a follow-up with urology scheduled. 2042: I reevaluated the patient at this time. He is felling well. I discussed the recent consults, and results of his testing with him. He is ready to be discharged home. Medical Decision Differential Diagnosis includes; AVM, bladder polyp, renal mass, renal stones, coagulopathy, anemia, renal failure, electrolyte imbalance, UTI. The patient is pancytopenic. He has a history of this. His hemoglobin though is stable. His white count has drifted down over the last several months and today, he is neutropenic with a neutrophil count of 380. There is no significant electrolyte abnormality or kidney failure, no hepatitis. There is no coagulopathy. Urinalysis shows hematuria, no infection. Urine culture from a few days ago did not grow any bacteria. Abdominal and pelvis CT today, with contrast, shows findings which are already known, nothing appears new or acute. There was no evidence for active areas of bleeding. The patient did receive a small amount of IV saline, he looks well, he has not had fever or chills, he has no pain. His hemoglobin is stable. I discussed this case with urology on-call and with hematology. The patient can be discharged. He will have a cystoscopy in the outpatient setting. He will continue his baby aspirin but continue to hold the Plavix. He will return here for any chills or fever. He will return if he is not able to urinate. The patient was encouraged to follow with urology, he will call Wednesday. Medication Reconcilliation Current Medication List: was personally reviewed by me Blood Pressure Screening Patient's blood pressure: Elevated blood pressure Blood pressure disposition: Elevated BP felt to be situational Consults Time Called: 1955 Consulting Physician: Dr. Gem Blanton Returned Call: 2004 I discussed the case with Dr. Gem Blanton at this time. He states that he needs a cystoscopy. We will wait for a consult with hematology. Additional Consults: Time Called: 2009 Consulted Physician: Juliette Noyola - Nurse Practicioner Returned Call: 2034 Additional Comments: I discussed the case with Juliette Noyola - Nurse Practitioner at this time. She states that the patient can be sent home, with a follow-up with urology scheduled. Impression Primary Impression: Hematuria Additional Impression: Neutropenia Scribe Attestation The scribe's documentation has been prepared under my direction and personally reviewed by me in its entirety. I confirm that the note above accurately reflects all work, treatment, procedures, and medical decision making performed by me. Departure Information Dispostion Home / Self-Care Referrals Tr Wild M.D. (PCP) Forms HOME CARE DOCUMENTATION FORM, IMPORTANT VISIT INFORMATION Patient Instructions My [facility] Additional Instructions continue the Keflex as prescibed still take the baby aspirin daily return if you cannot urinate return for fever or chills call urology on Wednesday to set up the cystoscopy--Dr. Rbaago Problem Qualifiers
[2016-11-07] MEDS ORDERED: OPTIRAY 320 IV PRN (18:00)
[2016-11-07 18:21] LABS: HEMATOCRIT 29.9 % (42-52); MEAN CELL VOLUME 96.8 fL (80-100); MEAN CORPUSCULAR HEMOGLOBIN 31.4 pg (25-34); MEAN CORPUSCULAR HGB CONC 32.4 g/dl (32-36); MEAN PLATELET VOLUME 9.3 fL (7.4-10.4); PLATELET COUNT 119 K/uL (130-400); RED BLOOD COUNT 3.09 M/uL (4.7-6.1); WHITE BLOOD COUNT 1.26 K/uL (4.8-10.8)
[2016-11-07 18:24] LABS: PARTIAL THROMBOPLASTIN RATIO 1.1; PROTHROMBIN TIME (PATIENT) 10.9 SECONDS (9.0-12.0)
[2016-11-07 18:30] LABS: BUN/CREATININE RATIO 28.5 (10-20); CALCIUM 8.9 mg/dl (8.5-10.1); CREATININE 0.61 mg/dl (0.60-1.40); POTASSIUM 3.6 mmol/L (3.5-5.1)
[2016-11-07 18:33] LABS: ALB/GLOB RATIO 0.7 (0.9-2)
[2016-11-07 19:01] LABS: COMPLETE YES; EOS % 1.6 %; IG% 0.8 %; LYMPH % 32.5 %; LYMPH ABS # 0.41 K/uL (1.2-3.4); MONO % 34.9 %; NEUT % 30.2 %
--- NOTE | 2016-11-07 19:27 | DIAGNOSTIC IMAGING REPORT ---
CT OF THE ABDOMEN AND PELVIS WITH CONTRAST CLINICAL HISTORY: Abdominal pain. Hematuria. COMPARISON STUDY: CT of the abdomen and pelvis November 05, 2016. TECHNIQUE: Following IV administration of 94 mL of Optiray-320, axial images of the abdomen and pelvis were obtained from the lung bases to the proximal femurs. Images were reviewed in the axial, sagittal, and coronal planes. IV contrast was administered without complication. A dose lowering technique was utilized adhering to the principles of ALARA. CT DOSE: 299.42 mGy.cm FINDINGS: Pacer leads are partially imaged. A 2.5 cm segment 4 hepatic cyst is present. There are no solid hepatic lesions. The spleen, adrenal glands and pancreas are unremarkable. A 6.8 x 6 cm fat-containing lesion arising from the upper pole of the left kidney is unchanged since prior exam. This is consistent with an angiomyolipoma. There is no adjacent hemorrhage. There are innumerable bilateral renal lesions. The majority of these measure water attenuation reflect cysts. Numerous lesions are too small to characterize. A few hyperdense lesions are unchanged from earlier studies and are therefore likely benign. There is a 5.3 x 4.5 cm infrarenal abdominal aortic aneurysm. This has mildly increased in size since CT of October 06, 2014 when it measured 5 x 4 cm. There is no rupture. There is extensive aortoiliac atherosclerotic plaque. There is no bowel obstruction. Multiple bilateral renal calculi are noted, including a 1.2 cm left renal calculus. There are no ureteral calculi. Sensitivity for detection of urothelial lesions is diminished given lack of delayed phase imaging. However, none are identified. Old L4 compression fracture is noted. IMPRESSION: 1. Extensive bilateral nephrolithiasis. No ureteral calculi or hydronephrosis. Decreased sensitivity for detection of urothelial lesions given lack of delayed phase imaging. 2. 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 No adjacent hemorrhage. 3. 5.3 x 4.5 cm infrarenal abdominal aortic aneurysm which has mildly increased in size since CT of October 06, 2014. No rupture. Extensive aortoiliac atherosclerotic plaque. Electronically signed by: Miguel Catherine M.D. 11/07/2016 7:25 PM Dictated Date/Time: 11/07/2016 7:10 PM
[2016-11-07 19:39] LABS: URINE APPEARANCE CLOUDY (CLEAR); URINE BILIRUBIN NEG (NEG); URINE COLOR RED; URINE NITRITE NEG (NEG); URINE SPECIFIC GRAVITY 1.035 (1.000-1.030); UROBILINOGEN NEG (NEG)
[2016-11-07 19:46] LABS: MANUAL MICROSCOPIC REQUIRED? NO; REVIEW REQ? YES
[2016-11-07 21:00] VITALS: BP 144/85; PULSE 82; O2SAT 94
== END 2016-11-07 21:00 | disposition home or self-care (01) ==
LOC: C.EDB 17:24 → C.EDA 21:00
DX: R31.9 Hematuria, unspecified (principal); D70.9 Neutropenia, unspecified; K50.90 Crohn's disease, unspecified, without complications; M32.9 Systemic lupus erythematosus, unspecified; Z87.442 Personal history of urinary calculi; Z90.49 Acquired absence of other specified parts of digestive tract; Z79.02 Long term (current) use of antithrombotics/antiplatelets; Z79.82 Long term (current) use of aspirin

== ENCOUNTER → 2016-11-13 | Outpatient (CLI) | payer OTHER, BC | END | disposition home or self-care (01) | LOC: C.PATHSPEC 14:49 | PROVIDERS: ATTEND Urology | DX: C68.9 Malignant neoplasm of urinary organ, unspecified (principal) ==

== ENCOUNTER → 2016-12-10 | Outpatient (CLI) | payer OTHER, BC ==
--- NOTE | 2016-12-10 15:38 | DIAGNOSTIC IMAGING REPORT ---
CT SCAN OF THE BRAIN WITHOUT IV CONTRAST CLINICAL HISTORY: Head injury. Pancytopenia. COMPARISON STUDY: No priors. TECHNIQUE: Unenhanced axial CT scan of the brain is performed from the vertex to the skull base. CT DOSE: 823.94 mGycm FINDINGS: Brain parenchyma: There are age-related involutional changes noting mild subcortical and periventricular microangiopathic change. There is no hemorrhage, mass effect, or evidence of acute territorial ischemia by CT criteria. Figueroa-white matter is preserved. No extra-axial fluid collection is seen. Ventricles, sulci, cisterns: Prominent secondary to involutional change. Intracranial vasculature: There is atherosclerotic calcification of the cavernous carotid and vertebral arteries. Calvarium: The skeletal structures are osteopenic. No depressed calvarial fracture is seen. Sinuses and mastoids: The visualized paranasal sinuses are clear. There is a small right mastoid effusion. The left mastoid air cells are well pneumatized. Orbits: The bony orbits are grossly intact. IMPRESSION: There is no hemorrhage, mass effect, or evidence of acute territorial ischemia by CT criteria. Electronically signed by: Damian Pretty M.D. 12/10/2016 3:37 PM Dictated Date/Time: 12/10/2016 3:35 PM
== END | disposition home or self-care (01) ==
LOC: C.CTS 15:11
PROVIDERS: ATTEND Internal Medicine Hematology & Oncology
DX: D61.818 Other pancytopenia (principal); S09.90XA Unspecified injury of head, initial encounter; W19.XXXA Unspecified fall, initial encounter

== ENCOUNTER → 2016-12-31 | Outpatient (CLI) | payer OTHER, BC ==
--- NOTE | 2017-01-11 13:54 | CODING QUERY MEDICAL NECESSITY ---
CQSUPPORTING DIAGNOSIS NEEDED A supporting diagnosis is required for the test/procedure performed on this patient in order for us to be reimbursed by the patient's insurance. Please provide a supporting diagnosis for the following test/procedure listed below next to the test name along with your signature. *If there is no additional diagnosis for this patient that would support the following test/procedure please document that below next to the test/procedure. Test(s)/Procedure(s) that require a supporting diagnosis: DOS 12/31/16 CYTOGENETIC STUDY URINE Provider Signature: Date: Thank you Odilia Delvalle [email or web address] Information Management Once completed, please kindly fax back to [phone] For questions please call [phone]
== END | disposition home or self-care (01) ==
LOC: C.PATHSPEC 11:18
PROVIDERS: ATTEND Urology
DX: R31.0 Gross hematuria (principal); D61.818 Other pancytopenia

== ENCOUNTER → 2017-01-21 | Outpatient (CLI) | payer OTHER, BC ==
--- NOTE | 2017-01-21 09:26 | DIAGNOSTIC IMAGING REPORT ---
CT OF THE CHEST WITHOUT IV CONTRAST CLINICAL HISTORY: Abnormal finding on lung imaging. COMPARISON STUDY: Chest CTs August 18, 2013 and July 22, [address] of the abdomen and pelvis November 07, 2016. CT DOSE: 282.23 mGy.cm TECHNIQUE: Axial images of the chest were obtained without IV contrast. Images were reviewed in the axial, sagittal, and coronal planes. IV contrast was not administered for this examination. A dose lowering technique was utilized adhering to the principles of ALARA. FINDINGS: No enlarged axillary, mediastinal or hilar lymph nodes are present. Mild cardiomegaly is unchanged. There is extensive coronary artery calcification. There are median sternotomy wires and postsurgical findings consistent with bypass grafting. No pneumothorax is present. There is a trace left pleural effusion. Severe emphysema is noted. A 3 x 1.4 cm partially calcified right apical scar-like abnormality is similar to exam of July 22, 2016. Soft tissue thickening is unchanged since prior exam. Left apical scarring is noted. Left lower lobe airspace opacities are noted, including a 1.6 cm subpleural opacity shown on image 258 of 356. This nodule is new since exam of July 22, 2016. Several of the nodules within the left lower lobe shown on prior exam have resolved. There are minimal tree-in-bud nodules within the lingula. There has been interval development of a irregular density within the right lower lobe shown on image 208 of 356. Several old compression fractures are noted. 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 There is no adjacent hemorrhage. IMPRESSION: 1. No change in the 3 x 1.4 cm right apical abnormality since CT of July 22, 2016. Stable soft tissue thickening since CT of July 22, 2016. A follow-up chest CT in 6 months to ensure stability is recommended. 2. Several left lower lobe airspace opacities, including a 1.6 cm subpleural nodule, which are new since prior exam. This favors a mild infectious process. Trace left pleural effusion. 3. Minimal right lower lobe irregular opacity, as described above. This suggests a mild infectious process and could be assessed on subsequent exams to ensure resolution. 4. Severe emphysema. Electronically signed by: Miguel Catherine M.D. 01/21/2017 9:25 AM Dictated Date/Time: 01/21/2017 9:08 AM
== END | disposition home or self-care (01) ==
LOC: C.CTS 08:54
PROVIDERS: ATTEND Physician Assistant Medical
DX: R91.8 Other nonspecific abnormal finding of lung field (principal); R91.1 Solitary pulmonary nodule; J43.9 Emphysema, unspecified

== ENCOUNTER → 2017-01-25 | Outpatient (CLI) | payer OTHER, BC ==
--- NOTE | 2017-01-25 18:51 | DIAGNOSTIC IMAGING REPORT ---
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 TECHNIQUE: PET/CT was performed from the vertex through the feet following the intravenous administration of 13.319 mCi of F18-FDG. Blood glucose level 90 mg/dL. The injection was performed at 1:25 PM and imaging began at 2:[address] was performed for attenuation correction purposes and anatomic localization. COMPARISON: CT of the abdomen and pelvis from 11/07/[address] chest from 01/21/2017. CT DOSE (mGy.cm): The estimated cumulative dose is 1156.30. FINDINGS: Head and neck: Asymmetric FDG avidity (max SUV 2.8) noted in the right fossa of Rosenmuller with mild asymmetry of the recesses and relative effacement on the right. No other sites of abnormal FDG avidity in the head and neck. No lymphadenopathy. Degenerative changes of the cervical spine noted. Chest: Left-sided implanted cardiac device. Atherosclerosis of the aorta. Multichamber enlargement of the heart. Coronary artery calcification. No FDG avid or enlarged lymph nodes. Severe emphysema. Evaluation of the lungs limited due to respiratory motion. Focal mild FDG avidity (max SUV 1.3 relative to surrounding lung parenchyma with a max SUV of 0.3) associated with the nodular peribronchovascular opacity in the anterior basal segment of the right lower lobe. No significant FDG avidity (max SUV 0.8) associated with the calcified consolidation at the right apex, suggesting cicatrizing atelectasis. Mild FDG avidity (max SUV 1.3) dependently at the left lung base, which correlates to groundglass and reticulation on recent chest CT. The peripheral nodular solid consolidation in the medial posterior left lower lobe is not as well-defined demonstrates similar degree of FDG avidity. Abdomen and pelvis: Photopenic hypodense lesion in the liver likely hepatic cyst. 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 Bilateral nephrolithiasis. No hydronephrosis. Multiple prominent photopenic hypodensities in the kidneys bilaterally likely cysts. The prostate is atrophic or absent. Diverticulosis of the sigmoid colon. FDG avidity associated with the right lower quadrant ileocolic anastomosis, likely postsurgical change as the distribution is not focal and nodular. A small bowel anastomosis is grossly patent in the superior pelvis are no bowel obstruction. No FDG avid or enlarged lymph nodes in the abdomen or pelvis. Infrarenal abdominal aortic aneurysm measuring 5.4 cm in transverse dimension. This is not significantly changed from prior exam on 11/07/2016. Mild FDG avidity (max SUV 3.0) noted along the left posterior lateral aspect could suggest active plaque inflammation. Musculoskeletal: Only mild diffuse FDG avidity is noted in the bone marrow, which is within the expected range of normal. No focal FDG avid lesions. No focal FDG avid or destructive osseous lesion. Degenerative changes of the spine. Focal FDG avidity at the right acromioclavicular joint likely degenerative in etiology. Activity associated with the median sternotomy likely evidence of healing. Severe osteopenia. Focal compression deformity at T9 with a lesser degree of compression deformity at T6 and T12. IMPRESSION: 1. Initial PET/CT demonstrates no focal FDG avidity in the bone marrow. 2. Severe osteopenia with compression fracture at T9 and lesser compression deformities at T6 and T12. The absence of FDG avidity at the sites could suggest chronic deformities. Correlate for point tenderness. 3. Mild asymmetry of the nasopharyngeal recesses with relative effacement and associated focal FDG avidity in the right fossa of Rosenmuller. Contrast enhanced CT of the neck could be considered versus direct visualization. Alternatively, this could represent secretions. 4. Focal mild FDG avidity at the right lower lobe nodular peribronchovascular opacity. This is nonspecific and could suggest an inflammatory or infectious etiology based on its morphologic appearance. Attention on follow-up chest CT. 5. Non-FDG avid right apical opacity most consistent with cicatrizing atelectasis. 6. Focal mild FDG avidity in a dependent distribution in the left lower lobe, which correlates to the findings of an infectious or inflammatory on anatomic imaging. Decreased prominence of the adjacent nodular peripheral consolidation, which may be related. 7. Mild FDG avidity associated a focal portion of the infrarenal abdominal aortic aneurysm. This suggest active plaque inflammation. Electronically signed by: Herrera Cabrera M.D. 01/25/2017 6:50 PM Dictated Date/Time: 01/25/2017 6:21 PM
== END | disposition home or self-care (01) ==
LOC: C.PET 13:06
PROVIDERS: ATTEND Internal Medicine Hematology & Oncology
DX: C90.00 Multiple myeloma not having achieved remission (principal); M85.88 Other specified disorders of bone density and structure, other site; S22.070A Wedge compression fracture of T9-T10 vertebra, initial encounter for closed fracture; X58.XXXA Exposure to other specified factors, initial encounter

== ENCOUNTER → 2017-02-10 | Outpatient (CLI) | payer OTHER, BC ==
[~2017-02-10] MED LIST changes: +FURO-85 PO
== END | disposition home or self-care (01) ==
LOC: C.LABSPEC 16:54
PROVIDERS: ATTEND Urology
DX: R31.0 Gross hematuria (principal)

== ENCOUNTER 2017-03-02 11:59 | Day surgery (SDC) | payer OTHER, BC ==
[2017-02-16 11:53] VITALS: BMI 21.0
--- NOTE | 2017-02-16 12:37 | PAT Medication Instructions ---
Service Date Feb 16, 2017. Current Home Medication List Albuterol (Ventolin Hfa), 2 PUFFS INH q4-6 PRN for Shortness of Breath Aspirin (Aspirin Chewable), 81 MG PO HS B-Complex Vitamins (Vitamin B Complex), 1 TAB PO QAM Carvedilol (Carvedilol), 6.25 MG PO BID Cholecalciferol (D 1000), 1,000 UNITS PO QAM Clopidogrel (Plavix), 75 MG PO HS Cyanocobalamin (Vitamin B12), 1,000 MCG PO QAM Docusate Sodium (Docusate Sodium), 1 CAP PO QPM Fluticasone Prop/Salmeterol (Advair Diskus 250-50 Mcg/Dose), 1 PUFF INH Q12 Folic Acid (Folvite), 1 MG PO QAM Furosemide (Lasix), 20 MG PO 3XWK PRN for prn Lisinopril (Zestril), 5 MG PO HS Ocuvite Preservision (Ocuvite Preservision), 1 TAB PO BID Simvastatin (Zocor), 40 MG PO QPM Tiotropium [place] (Spiriva Handihaler), 1 CAP INH QAM Medication Instructions For Your Scheduled Surgery - Instructions to be given by surgeon/cardiology: Clopidogrel (Plavix), 75 MG PO HS - Hold the following medications 24 hours prior to surgery: Lisinopril (Zestril), 5 MG PO HS - Hold the following medications the morning of surgery: B-Complex Vitamins (Vitamin B Complex), 1 TAB PO QAM Cholecalciferol (D 1000), 1,000 UNITS PO QAM Cyanocobalamin (Vitamin B12), 1,000 MCG PO QAM Folic Acid (Folvite), 1 MG PO QAM Ocuvite Preservision (Ocuvite Preservision), 1 TAB PO BID Furosemide (Lasix), 20 MG PO 3XWK PRN for prn - Take the following medications the morning of surgery with a sip of water OTHERWISE NOTHING TO EAT OR DRINK AFTER MIDNIGHT: Fluticasone Prop/Salmeterol (Advair Diskus 250-50 Mcg/Dose), 1 PUFF INH Q12 Albuterol (Ventolin Hfa), 2 PUFFS INH q4-6 PRN for Shortness of Breath (use if needed; BRING TO HOSPITAL) Tiotropium [place] (Spiriva Handihaler), 1 CAP INH QAM Carvedilol (Carvedilol), 6.25 MG PO BID - Take the following medications as scheduled the night before surgery: Fluticasone Prop/Salmeterol (Advair Diskus 250-50 Mcg/Dose), 1 PUFF INH Q12 Albuterol (Ventolin Hfa), 2 PUFFS INH q4-6 PRN for Shortness of Breath Aspirin (Aspirin Chewable), 81 MG PO HS Simvastatin (Zocor), 40 MG PO QPM Docusate Sodium (Docusate Sodium), 1 CAP PO QPM Ocuvite Preservision (Ocuvite Preservision), 1 TAB PO BID Carvedilol (Carvedilol), 6.25 MG PO BID If you have any questions please call us at [phone] or [phone] or [phone]
[2017-02-16 13:20] LABS: HEMATOCRIT 31.3 % (42-52); MEAN CELL VOLUME 97.8 fL (80-100); MEAN CORPUSCULAR HEMOGLOBIN 31.6 pg (25-34); MEAN CORPUSCULAR HGB CONC 32.3 g/dl (32-36); WHITE BLOOD COUNT 1.67 K/uL (4.8-10.8)
[2017-02-16 13:21] LABS: BUN/CREATININE RATIO 25.4 (10-20); CALCIUM 8.7 mg/dl (8.5-10.1); CREATININE 0.69 mg/dl (0.60-1.40); POTASSIUM 4.2 mmol/L (3.5-5.1)
[2017-02-16 14:15] LABS: MEAN PLATELET VOLUME 9.4 fL (7.4-10.4); PLATELET COUNT 81 K/uL (130-400)
[2017-02-16 14:25] LABS: COMPLETE YES; EOS % 1.2 %; IG% 0.6 %; LYMPH % 35.9 %; MONO % 16.2 %; NEUT % 46.1 %
[~2017-03-02] VITALS: Ht 182.9 cm; Wt 71.5 kg
[~2017-03-02 11:59] MED LIST changes: -CEPH500C PO; +CIPROFLOXACIN / D5W 400 MG IV SCH; +LACTATED RINGER'S 1000ML 1,000 ML IV SCH; -LSX40 PO
[2017-03-02 12:20] LABS: HEMATOCRIT 32.4 % (42-52); MEAN CELL VOLUME 98.5 fL (80-100); MEAN CORPUSCULAR HEMOGLOBIN 31.3 pg (25-34); RED BLOOD COUNT 3.29 M/uL (4.7-6.1); WHITE BLOOD COUNT 1.96 K/uL (4.8-10.8)
[2017-03-02 12:33] VITALS: BP 121/61; PULSE 90; TEMP 36.6; O2SAT 98; Ht 182.9 cm; Wt 71.5 kg
[2017-03-02 12:49] LABS: MEAN CORPUSCULAR HGB CONC 31.8 g/dl (32-36); MEAN PLATELET VOLUME 9.4 fL (7.4-10.4); PLATELET COUNT 91 K/uL (130-400)
[2017-03-02] MEDS ORDERED: ONDANSETRON INJ 2 MG/ML 2 ML VIAL ONE (14:50)
[2017-03-02] MEDS ORDERED: FENTANYL CITRATE INJ 50 MCG/1 ML 2 ML VIAL ONE (14:50)
[2017-03-02] MEDS ORDERED: LIDOCAINE HCL 2% 2 ML VIAL (20MG/ML) ONE (14:50)
[2017-03-02] MEDS ORDERED: PROPOFOL IV EMULSION 10 MG/ML 20 ML VIAL IV ONE ×2 (14:50→17:10)
[2017-03-02] MEDS ORDERED: ATROPINE SULFATE 0.1 MG/ML 5ML SYR IV PRN (15:30)
[2017-03-02] MEDS ORDERED: PROMETHAZINE HCL INJ 6.25 MG in SODIUM CHLORIDE 0.9% 50ML 50 ML IV PRN (15:30)
[2017-03-02] MEDS ORDERED: EpHEDrine SULFATE INJ 50 MG/ML AMP IV PRN (15:30)
[2017-03-02] MEDS ORDERED: FENTANYL CITRATE INJ 50 MCG/1 ML 2 ML VIAL IV PRN (15:30)
[2017-03-02] MEDS ORDERED: ONDANSETRON INJ 2 MG/ML 2 ML VIAL IV PRN (15:30)
--- NOTE | 2017-03-02 16:34 | History & Physical Bridge Note ---
H&P Re-Evaluation Bridge Note: I have examined the patient, reviewed the History & Physical and in the interval since the performance of the History & Physical I have noted the following changes of clinical significance: No changes noted
[2017-03-02] MEDS ORDERED: CONRAY 30% 150ML BOTTLE ONE (16:36)
[2017-03-02] MEDS ORDERED: SODIUM CHLORIDE 0.9% 1000ML 1,000 ML IV SCH (17:21)
[2017-03-02] MEDS ORDERED: PHENAZOPYRIDINE HCL 200 MG TAB PO STA (17:21)
[2017-03-02] MEDS ORDERED: ACETAMINOPHEN 325 MG TAB PO PRN (17:30)
[2017-03-02] MEDS ORDERED: PHENAZOPYRIDINE HOME PACK 200 MG VIAL PO ONE (17:30)
--- NOTE | 2017-03-02 17:33 | [facility] Operative Report ---
Operative Report Operative Date Mar 02, 2017. Pre-Operative Diagnosis urothelial carcinoma on urine cytology Post-Operative Diagnosis urothelial carcinoma on urine cytology Procedure(s) Performed cystoscopy; bilateral ureteral washings; bilateral retrograde pyelograms Surgeon Tone Rabago MD Utilization Coordinator Surgeon(s) none Estimated Blood Loss 0cc Findings as per dictation Drains none Anesthesia MAC Complication(s) None Disposition Recovery Room / PACU (stable) Indications urothelial carcinoma on urine cytology x2 - no visible disease on cystoscopy or imaging Description of Procedure The patient was identified in the preoperative holding area, appropriate informed consent reviewed and completed and he was transported to the operating suite. Upon arrival he received appropriate preoperative antibiotics in the form of ciprofloxacin. Adequate sedation was achieved and he was placed in dorsal lithotomy position where he was sterilely prepped and draped in standard fashion. To begin the case, I passed a 22 Q[place] cystoscope with 30 lens. Inspection of the urethra revealed no evidence of stricture disease. His prostate was moderately enlarged. Inspection of the bladder with both a 30 and 70 lens revealed no evidence of papillary bladder tumors or other areas of concern for malignancy. Ureteral orifices were in orthotopic position. In turn my attention first to the left ureteral orifice and cannulated it with a 10 [place] double-lumen catheter. This catheter was inserted approximately 2 cm. I then irrigated the ureter utilizing 10 mL's normal saline and collected the irrigant - passing off the table as a specimen labeled "left ureteral washing" for cytology. I then repeated the same procedure on the right, first irrigating with 10 mL normal saline followed by collection of the irrigant as a specimen labeled "right ureteral washing "to be sent for cytology. I then performed a retrograde pyelogram on the lateral right ureter Description of the RPG: Relatively uniform caliber ureter from bladder to kidney. No clear filling defects, moderate right hydronephrosis. Prompt drainage of the kidney and collecting system immediately following removal of catheter. I then performed a left retrograde pyelogram Scription of the RPG: No definitive filling defects. He does appear to have some mass effect in the left upper pole, however he has a known history of AML - in the AML exist in this area. There is no significant dilation of the left collecting system nor identifiable filling defects. There was prompt drainage of the left collecting system following removal of the catheter. Given the lack of identifiable pathology in these areas, I elected to concluded this portion of the case. I emptied his bladder and he was reversed from anesthesia and taken to the PACU in stable condition. I attest to the content of the Intraoperative Record and any orders documented therein. Any exceptions are noted below.
--- NOTE | 2017-03-02 17:35 | Anesthesiology Progress Note ---
Anesthesia Post Op Note Date & Time Mar 02, 2017 at 17:34 Vital Signs Pain Intensity: 0 Vital Signs Past 12 Hours Date Time Temp Pulse Resp B/P (MAP) Pulse Ox O2 Delivery O2 Flow Rate FiO2 03/02/17 17:30 62 16 121/74 94 Room Air 03/02/17 17:22 36.8 62 16 110/64 99 Room Air 03/02/17 12:33 36.6 90 20 121/61 (81) 98 Room Air Notes Mental Status: alert / awake / arousable, participated in evaluation Pt Amnestic to Procedure: Yes Nausea / Vomiting: adequately controlled Pain: adequately controlled Airway Patency, RR, SpO2: stable & adequate BP & HR: stable & adequate Hydration State: stable & adequate Anesthetic Complications: no major complications apparent
--- NOTE | 2017-03-02 17:35 | Discharge Instructions ---
Discharge Instructions Date of Service Mar 02, 2017. Admission Reason for Admission: Gross Hematuria; urothelial carcinoma on urine cytology Discharge Discharge Diagnosis / Problem: Gross hematuria; urothelial carcinoma on cytology Discharge Goals Goal(s): Decrease discomfort, Improve function, Increase independence, Improve disease control, Prevent Disease Progression Activity Recommendations Activity Limitations: resume your previous activity Lifting Limitations: none Exercise/Sports Limitations: none May Resume Sexual Activity: when tolerated Shower/Bathe: no limitations Driving or Machine Use: resume 1 day after discharge . Instructions / Follow-Up Instructions / Follow-Up Please keep your previously scheduled follow up appointment with Dr. Rabago [facility] Diet Patient's current hospital diet: Discharge Diet Recommended Diet: Regular Diet Procedures Procedures Performed: cystoscopy; bilateral ureteral washings; bilateral retrograde pyelograms Pending Studies Studies pending at discharge: no Medical Emergencies . Who to Call and When: Medical Emergencies: If at any time you feel your situation is an emergency, please call 911 immediately. . Non-Emergent Contact Non-Emergency issues call your: Urologist Call Non-Emergent contact if: you have a fever, temperature is above 101.5, your pain is not controlled, your pain is worsening . . "Provider Documentation" section prepared by Mio Mahoney. . VTE Core Measure Inpt VTE Proph given/why not?: Treatment not indicated
[2017-03-02 17:45] VITALS: BP 129/74; PULSE 62; TEMP 36.8; O2SAT 95
--- NOTE | 2017-03-02 18:02 | DIAGNOSTIC IMAGING REPORT ---
RETROGRADE INCLUDES KUB CLINICAL HISTORY: 81 years-old Male presenting with RETROGRADE. TECHNIQUE: 6 fluoroscopic spot image(s) obtained as part of an intraoperative procedure. COMPARISON: CT from 11/07/2016. FINDINGS/IMPRESSION: Opacification of the bilateral renal collecting systems. No gross hydronephrosis. Please see surgical report for further details. Fluoroscopy dosage (mGy): Not available. Fluoroscopy time: 19 seconds. Number of fluoroscopic spot images: 6. Electronically signed by: Herrera Cabrera M.D. 03/02/2017 6:01 PM Dictated Date/Time: 03/02/2017 5:59 PM
[2017-03-02 18:15] VITALS: BP 106/59; PULSE 60; TEMP 36.8; O2SAT 96
== END 2017-03-02 18:30 | disposition home or self-care (01) ==
LOC: C.ACU 11:59
PROVIDERS: ATTEND Urology
DX: D17.71 Benign lipomatous neoplasm of kidney (principal); R31.0 Gross hematuria; I25.10 Atherosclerotic heart disease of native coronary artery without angina pectoris; I48.91 Unspecified atrial fibrillation; J44.9 Chronic obstructive pulmonary disease, unspecified; E78.5 Hyperlipidemia, unspecified; Z98.84 Bariatric surgery status

== ENCOUNTER → 2017-04-27 | Outpatient (CLI) | payer OTHER, BC ==
[~2017-04-27] MED LIST changes: -CIPROFLOXACIN / D5W 400 MG IV SCH; -FOLI1TAB7 PO; +FOLI1TAB8 PO; -LACTATED RINGER'S 1000ML 1,000 ML IV SCH
== END | disposition home or self-care (01) ==
LOC: C.MAMM 15:47
PROVIDERS: ATTEND Family Medicine
DX: M85.88 Other specified disorders of bone density and structure, other site (principal)

== ENCOUNTER → 2017-06-09 | Outpatient (CLI) | payer OTHER, BC ==
--- NOTE | 2017-06-09 12:03 | DIAGNOSTIC IMAGING REPORT ---
CHEST 2 VIEWS ROUTINE CLINICAL HISTORY: Exacerbation of COPD COMPARISON STUDY: 07/06/2016 FINDINGS: There is pulmonary emphysema. The heart remains enlarged. There are postsurgical changes of midline sternotomy. There is a left-sided pacer/defibrillator present. There is no focal pulmonary consolidation. There is a very small right pleural effusion.[ There is no current evidence of failure. IMPRESSION: 1. Emphysema 2. Very small right pleural effusion 3. No evidence of focal pulmonary consolidation Electronically signed by: David Mondragon M.D. 06/09/2017 12:01 PM Dictated Date/Time: 06/09/2017 12:00 PM
== END | disposition home or self-care (01) ==
LOC: C.RAD1850 11:51
PROVIDERS: ATTEND Internal Medicine Pulmonary Disease
DX: J44.1 Chronic obstructive pulmonary disease with (acute) exacerbation (principal); J43.9 Emphysema, unspecified; J90 Pleural effusion, not elsewhere classified

== ENCOUNTER → 2017-07-05 | Outpatient (CLI) | payer OTHER, BC ==
[~2017-07-05] MED LIST changes: +AZITTAB PO; +CARV3.122 PO; +DOXY-300 PO; +LNX125 PO; +LSX40 PO; +LUTE6CAP PO; +NYSS5 PO; +PRED10TA PO; +PRED20TA PO; +XPNINS NEB
--- NOTE | 2017-07-05 14:45 | DIAGNOSTIC IMAGING REPORT ---
CHEST 2 VIEWS ROUTINE CLINICAL HISTORY: J44.1 COPD with [id number] dyspnea COMPARISON STUDY: 06/09/2017 FINDINGS: Moderate stable cardiomegaly. 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 Minimal pleural fluid right lateral costophrenic angle unchanged from the prior study. Stable emphysematous change. Stable apical fibrotic change. IMPRESSION: Chronic and postoperative change. Stable emphysematous change. No acute or interval process. Note is made of a pre-existing moderate compression deformity of a midthoracic vertebral body. This is unchanged. The above report was generated using voice recognition software. It may contain grammatical, syntax or spelling errors. Electronically signed by: Randy Swann M.D. 07/05/2017 2:44 PM Dictated Date/Time: 07/05/2017 2:42 PM
== END | disposition home or self-care (01) ==
LOC: C.RAD1850 14:32
PROVIDERS: ATTEND Internal Medicine Pulmonary Disease
DX: J44.1 Chronic obstructive pulmonary disease with (acute) exacerbation (principal)

== ENCOUNTER 2017-07-07 05:31 | Inpatient (IN) | payer OTHER, BC ==
[2017-07-07] VITALS (7 sets, daily range): BP systolic 101–104; BP diastolic 65–75; PULSE 59–155; TEMP 36–36.8; O2SAT 93–100; Ht 182.9 cm; Wt 68.9 kg
[~2017-07-07] VITALS: Ht 182.9 cm; Wt 68.9 kg
[~2017-07-07 05:31] MED LIST changes: -AZITTAB PO; -CARV3.122 PO; -DOXY-300 PO; -LNX125 PO; -LSX40 PO; -LUTE6CAP PO; -NYSS5 PO; -PRED10TA PO; -PRED20TA PO; -XPNINS NEB
[2017-07-07] MEDS ORDERED: DILTIAZEM HCL 5 MG/ML 5 ML VIAL ONE (05:41)
--- NOTE | 2017-07-07 05:54 | EMERGENCY ROOM VISIT NOTE ---
History Report prepared by Chapito: Santiago Flores Under the Supervision of: Dr. Betsy Noyola D.O. First contact with patient: 05:33 Chief Complaint: SHORTNESS OF BREATH Stated Complaint: SHORT OF BREATH History of Present Illness The patient is an 81 year old male who presents to the Emergency Room with complaints of worsening, severe, shortness of breath beginning yesterday morning. The patient states he was recently diagnosed with bronchitis and was up through the night with difficulty breathing. He reports he has a history of COPD and CHF. The patient notes he has a history of this before but never this severe. He denies any other symptoms. EMS states the patient's O2Sat was 82 on room air. Source of History: patient Onset: yesterday morning Symptom Intensity: severe Quality: other (SOB) Timing: worsening Note: Pt denies any other complaint. Review of Systems See HPI for pertinent positives & negatives. A total of 10 systems reviewed and were otherwise negative. Past Medical & Surgical Medical Problems: (1) Acute CHF (congestive heart failure) (2) Bowel resection (3) Crohn's disease (4) Enterocolitis (5) Intractable vomiting with nausea (6) Lupus (7) Rapid atrial fibrillation Family History Omitted due to advanced age Social History Smoking Status: Former Smoker Drug Use: none Marital Status: Housing Status: lives with family Occupation Status: retired Current/Historical Medications Scheduled Aspirin (Aspirin Chewable), 81 MG PO DAILY Azithromycin (Zithromax Z-Charly), 1 PKT PO UD B-Complex Vitamins (Vitamin B Complex), 1 TAB PO QAM Carvedilol (Coreg), 3.125 MG PO AMPM Cholecalciferol (D 1000), 1 TAB PO BID Cyanocobalamin (Vitamin B12), 1,000 MCG PO QAM Fluticasone Prop/Salmeterol (Advair Diskus 250-50 Mcg/Dose), 1 PUFF INH BID Folic Acid (Folvite), 1 MG PO QAM Lisinopril (Zestril), 5 MG PO DAILY Lutein (Lutein), 6 MG PO BID Prednisone Tab (Prednisone), 10 MG PO DIRECTED Simvastatin (Zocor), 40 MG PO QPM Tiotropium [place] (Spiriva Handihaler), 1 CAP INH DAILY Scheduled PRN Albuterol (Ventolin Hfa), 2 PUFFS INH q4-6 PRN for Shortness of Breath Furosemide (Lasix), 20 MG PO 3XWK PRN for prn Levalbuterol (Levalbuterol HCl), 1 VIAL NEB Q4H PRN for Shortness of Breath Allergies Coded Allergies: Ibuprofen (Verified Allergy, Unknown, ileus, 03/02/17) Morphine (Verified Adverse Reaction, Intermediate, NARCOTICS-PATIENT GETS AN ILEUS, 07/07/17) IF PATIENT IS UNABLE TO MOVE AND WALK AFTER RECEIVING ANY NARCOTICS, HE WILL GET AN ILEUS. Physical Exam Vital Signs Date Time Temp Pulse Resp B/P (MAP) Pulse Ox O2 Delivery O2 Flow Rate FiO2 07/07/17 08:50 98 Nasal Cannula 6.0 07/07/17 08:30 116 22 100/65 98 Nasal Cannula 6.0 07/07/17 07:21 84/74 07/07/17 07:11 101/78 07/07/17 07:04 103/59 07/07/17 07:01 134 25 91/65 100 07/07/17 06:51 101/81 07/07/17 06:41 139/95 07/07/17 06:31 139 28 94 07/07/17 06:29 BiPAP 40 07/07/17 06:21 118/81 07/07/17 06:15 36.3 160 30 132/103 100 Non-Rebreather 15.0 07/07/17 06:15 Non-Rebreather 07/07/17 06:12 138/105 07/07/17 06:01 152 19 123/106 88 07/07/17 06:00 155 100 07/07/17 05:52 126/93 07/07/17 05:51 142 32 126/93 100 Non-Rebreather 07/07/17 05:39 163 07/07/17 05:39 132/103 Physical Exam General: Moderate respiratory distress. HEENT: Head - normocephalic and atraumatic Pupils are equal, round, and reactive to light. Extraocular eye muscles are intact, and sclera are anicteric. Nose - moist nasal mucosa without discharge. Mouth - moist buccal mucosa. Oropharynx is nonerythematous and there is no tonsillar exudate or edema noted. Neck: Supple; mild JVD, nuchal rigidity, cervical lymphadenopathy, or auscultated bruits. Heart: Tachycardic and irregularly irregular rhythm. There is a normal S1 and S2 with no murmurs, clicks, or gallops appreciated. Lungs: Rales and rhonchi bilaterally, mostly at the bases. Abdomen: Soft, completely nontender, nondistended, with good bowel sounds. There are no palpable pulsatile masses or hepatosplenomegaly. There is no guarding, rigidity, or rebound noted. Extremities: No evidence of cyanosis or clubbing. There are easily palpable peripheral pulses. 1+ pitting edema in his lower extremities. Skin: Pale, warm and dry with good turgor and no rashes. Medical Decision & Procedures ER Provider Diagnostic Interpretation: X-ray results as stated below per interpretation by me and the radiologist: CHEST ONE VIEW PORTABLE CLINICAL HISTORY: Shortness of breath COMPARISON STUDY: 07/05/2017 FINDINGS: The heart is enlarged. There are postsurgical changes of a midline sternotomy. There is a left subclavian pacer/defibrillator present. There is mild pulmonary vascular congestion. There is no focal pulmonary consolidation. Trace pleural effusions are suspected. IMPRESSION: Cardiomegaly and radiographic evidence of mild pulmonary vascular congestion. No evidence of focal pulmonary consolidation Electronically signed by: David Mondragon M.D. 07/07/2017 6:33 AM Dictated Date/Time: 07/07/2017 6:32 AM Per my interpretation: Cardiomegaly. Moderate pulmonary vascular congestion consistent with CHF. Laboratory Results Test 07/07/17 05:46 07/07/17 05:47 Nucleated RBC Absolute Count (auto) 0.07 K/uL (0-0) Nucleated Red Blood Cells % 1.3 % Platelet Estimate DECREASED Ovalocytes 1+ Echinocytes 1+ Prothrombin Time 12.6 SECONDS (9.0-12.0) Prothromb Time International Ratio 1.2 (0.9-1.1) Activated Partial Thromboplast Time 27.5 SECONDS (21.0-31.0) Partial Thromboplastin Ratio 1.1 Total Bilirubin 0.6 mg/dl (0.2-1) Aspartate Amino Transf (AST/SGOT) 40 U/L (15-37) Alanine Aminotransferase (ALT/SGPT) 28 U/L (12-78) Alkaline Phosphatase 120 U/L (45-117) Pro-B-Type Natriuretic Peptide 6987 pg/ml (0-1800) Total Protein 7.3 gm/dl (6.4-8.2) Albumin 3.2 gm/dl (3.4-5.0) Globulin 4.1 gm/dl (2.5-4.0) Albumin/Globulin Ratio 0.8 (0.9-2) Bedside Lactic Acid Venous 6.65 mmol/L (0.90-1.70) Laboratory results per my review. Medications Administered Medications (Trade) Dose Ordered Sig/Liya Route Start Time Stop Time Status Last Admin Dose Admin Diltiazem HCl (Cardizem Inj) 25 mg STK-MED ONCE .ROUTE 07/07/17 05:41 07/07/17 05:42 DC 07/07/17 05:48 10 MG Piperacillin Sod/ Tazobactam Sod (Zosyn Iv) 4.5 gm NOW STAT IV 07/07/17 06:31 07/07/17 06:36 DC 07/07/17 06:42 4.5 GM Levofloxacin (Levaquin / D5W) 750 mg NOW ONCE IV 07/07/17 06:45 07/07/17 06:46 DC 07/07/17 06:42 750 MG Furosemide 20 mg/ Syringe 2 ml @ 4 mls/min ONE ONCE IV 07/07/17 06:45 07/07/17 06:46 DC 07/07/17 07:15 4 MLS/MIN Furosemide (Lasix Inj) 40 mg STK-MED ONCE .ROUTE 07/07/17 07:00 07/07/17 07:01 DC 07/07/17 07:15 20 MG Procedure 0541: Ordered Diltiazem HCl 10mg IV 0631: Zosyn IV 4.5gm IV 0645: Furosemide 20 mg/Syringe 2ml @ 4 mls/min IV, Levofloxacin 750mg IV ECG Per My Interpretation Indication: SOB/dyspnea Rate (beats per minute): 157 Rhythm: atrial fibrillation (with RVR) Findings: ST depression (Lateral), other (Poor baseline) Comparison ECG Date: 06/02/16 Change: ST segment depression is new. ED Course 0537: The patient was evaluated in room A02. A complete history and physical examination were performed. Nursing notes and previous electronic medical records were reviewed. IV lock was established and labs were drawn as above. A 12-lead EKG was obtained and a portable chest x-ray. The patient was placed on BiPAP. 0541: Ordered Diltiazem HCl 10mg IV 0559: I reevaluated the patient. He appears more comfortable on BI-PAP. His O2Sat is 100, and his heart rate is between 130-140. 0631: Zosyn IV 4.5gm IV 0645: Furosemide 20 mg/Syringe 2ml @ 4 mls/min IV, Levofloxacin 750mg IV 0651: Upon reevaluation, I discussed findings and results with him. He verbalized agreement of the treatment plan. The patient will be evaluated for further management and care. 0653: I discussed the patient's case with Dr. Sagastume [facility] Hospitalist. The patient will be evaluated for further management and care. 0700: Furosemide 40mg IV Medical Decision The patient is an 81 year old male who presents to the ED with shortness of breath. Differential diagnosis includes a-fib with RVR, CHF, COPD, pneumonia, bronchitis. Lab results show: INR of 1.2, lactic acid of 6.6, WBC of 4.9, hemoglobin of 11, blood count of 68, BUN of 27, creatinine of 0.9, glucose of 172, troponin is 0.472, BNP of 6987 This is an 81-year-old male patient with a history of CHF and COPD who presents to the emergency department with increasing shortness of breath. Patient is currently being treated with antibiotics for bronchitis. Despite this regimen, the patient's respiratory status has worsened. On physical exam, was concerned for CHF but the patient also was noted to have a lactic acid greater than 6 despite being on antibiotics and therefore was concerned about the possibility of sepsis. The patient was treated with broad-spectrum antibiotics. He had obvious fluid overload on physical exam and was given IV Lasix. The patient had an elevated BNP and troponin. I discussed the case with the hospitalist and they will evaluate for further management. Medication Reconcilliation Current Medication List: was personally reviewed by me Blood Pressure Screening Patient's blood pressure: Normal blood pressure Blood pressure disposition: Did not require urgent referral Consults Time Called: 0645 Consulting Physician: Dr. Sagastume [facility] Hospitalist Returned Call: [phone] I discussed the patient's case with Dr. Sagastume [facility] Hospitalist. The patient will be evaluated for further management and care. Impression Primary Impression: Congestive heart failure Scribe Attestation The scribe's documentation has been prepared under my direction and personally reviewed by me in its entirety. I confirm that the note above accurately reflects all work, treatment, procedures, and medical decision making performed by me. Departure Information Dispostion Being Evaluated By Hospitalist Referrals Tr Wild M.D. (PCP) Patient Instructions [facility] Problem Qualifiers Primary Impression: Congestive heart failure Heart failure type: unspecified Heart failure chronicity: acute Qualified Codes: I50.9 - Heart failure, unspecified
[2017-07-07 06:10] LABS: INR 1.2 (0.9-1.1); PTT PATIENT 27.5 SECONDS (21.0-31.0)
[2017-07-07] MEDS ORDERED: PIPERACILLIN/TAZOBACTAM 4.5 GM/100ML D5W IV STA (06:31)
[2017-07-07 06:33] LABS: ALBUMIN 3.2 gm/dl (3.4-5.0); CALCIUM 8.7 mg/dl (8.5-10.1); CREATININE 0.91 mg/dl (0.60-1.40); POTASSIUM 4.1 mmol/L (3.5-5.1)
--- NOTE | 2017-07-07 06:35 | DIAGNOSTIC IMAGING REPORT ---
CHEST ONE VIEW PORTABLE CLINICAL HISTORY: Shortness of breath COMPARISON STUDY: 07/05/2017 FINDINGS: The heart is enlarged. There are postsurgical changes of a midline sternotomy. There is a left subclavian pacer/defibrillator present. There is mild pulmonary vascular congestion. There is no focal pulmonary consolidation. Trace pleural effusions are suspected.[ IMPRESSION: Cardiomegaly and radiographic evidence of mild pulmonary vascular congestion. No evidence of focal pulmonary consolidation Electronically signed by: David Mondragon M.D. 07/07/2017 6:33 AM Dictated Date/Time: 07/07/2017 6:32 AM
[2017-07-07 06:36] LABS: TOTAL PROTEIN 7.3 gm/dl (6.4-8.2)
[2017-07-07 06:38] LABS: HEMATOCRIT 35.4 % (42-52); MEAN CELL VOLUME 97.5 fL (80-100); MEAN CORPUSCULAR HEMOGLOBIN 30.3 pg (25-34); MEAN CORPUSCULAR HGB CONC 31.1 g/dl (32-36); MEAN PLATELET VOLUME 11.6 fL (7.4-10.4); NUCLEATED RED BLOOD CELL ABS 0.07 K/uL (0-0); PLATELET COUNT 68 K/uL (130-400); RED CELL DISTRIBUTION WIDTH CV 17.9 % (11.5-14.5); RED CELL DISTRIBUTION WIDTH SD 63.6 fL (36.4-46.3); WHITE BLOOD COUNT 4.91 K/uL (4.8-10.8)
[2017-07-07 06:39] LABS: BASO % 0.2 %; BASO ABS # 0.01 K/uL (0-0.2); EOS % 0.2 %; EOS ABS # 0.01 K/uL (0-0.5); IG# 0.04 K/uL (0.00-0.02); LYMPH % 18.3 %; MONO % 34.8 %; MONO ABS # 1.71 K/uL (0.11-0.59); NEUT % 45.7 %; NEUT ABS # 2.24 K/uL (1.4-6.5)
[2017-07-07] MEDS ORDERED: FUROSEMIDE INJ 20 MG in SYRINGE 0 ML IV ONE (06:45)
[2017-07-07] MEDS ORDERED: LEVAQUIN 750MG / 150ML D5W IV ONE (06:45)
[2017-07-07] MEDS ORDERED: FUROSEMIDE 40 MG/4 ML VIAL ONE (07:00)
[2017-07-07] MEDS ORDERED: AZITTAB PO (07:30)
[2017-07-07] MEDS ORDERED: LUTE6CAP PO (07:30)
[2017-07-07] MEDS ORDERED: XPNINS NEB (07:30)
[2017-07-07] MEDS ORDERED: PRED10TA PO (07:30)
[2017-07-07] MEDS ORDERED: CARV3.122 PO (07:30)
[2017-07-07] MEDS ORDERED: LISINOPRIL 5 MG TAB PO SCH (09:00)
[2017-07-07] MEDS ORDERED: NITROGLYCERIN 0.4 MG SL PER TAB CHARGE SL PRN (09:00)
[2017-07-07] MEDS ORDERED: ACETAMINOPHEN 325 MG TAB PO PRN (09:00)
[2017-07-07] MEDS ORDERED: MAGNESIUM HYDROXIDE SUSP 30 ML UDC PO PRN (09:00)
[2017-07-07] MEDS ORDERED: DIGOXIN IV 250 MCG in SYRINGE 9 ML IV ONE (10:45)
[2017-07-07] MEDS ORDERED: INFLUENZA ADMINISTRATION CHARGE ONE (11:00)
[2017-07-07] MEDS ORDERED: INFLUENZA VIRUS QUAD VACCINE 0.5 ML SYR IM. ONE (11:00)
[2017-07-07] MEDS ORDERED: LEVOFLOXACIN CONSULT ACTIVE PRN (14:00)
[2017-07-07] MEDS: LEVALBUTEROL 1.25MG/0.5ML NEB INH SCH ×2 (14:18→20:18)
[2017-07-07] MEDS: FLUTICASONE/SALMETEROL 250/50 (ADVAIR) 14 PUFF/1 INHALER INH SCH ×2 (15:38→20:24)
[2017-07-07] MEDS: DIGOXIN IV 250 MCG in SYRINGE 9 ML IV SCH ×3 (15:38→22:41)
[2017-07-07] MEDS: GUAIFENESIN 600 MG TABCR PO SCH ×2 (15:39→20:25)
[2017-07-07] MEDS: ASPIRIN 81 MG ECTAB PO SCH (15:39)
[2017-07-07] MEDS: CARVEDILOL 3.125 MG TAB PO SCH ×2 (15:40→20:25)
[2017-07-07] MEDS: FUROSEMIDE INJ 20 MG in SYRINGE 0 ML IV SCH (17:21)
[2017-07-07] MEDS: METHYLPREDNISOLONE IV 60 MG in SYRINGE 0 ML IV SCH ×2 (17:21→22:40)
--- NOTE | 2017-07-07 20:20 | CARDIOLOGY CONSULTATION ---
DATE OF CONSULTATION: 07/07/2017 REQUESTING: Dr. Dahlia Lincoln. BARREL COOPER: Vasu Brown D.O., [facility]. REASON FOR CONSULTATION: Atrial fibrillation with a rapid ventricular response, acute on chronic systolic heart failure. This consultation was performed at approximately 10:45 in the morning of 07/07/2017. The findings of the consultation were discussed with Dr. Lincoln by phone and recommendations were made. The actual dictation is occurring at 5:25 p.m. on 07/07/2017. Dear Dr. Lincoln then requesting cardiology consultation on [place] with regards to his acute on chronic systolic heart failure and atrial fibrillation with a rapid ventricular response. He notes over the last week, he has noted increased abdominal distention, lower extremity edema and increasing dyspnea. He had contacted our office and we have asked that he come in for a heart failure evaluation. In addition, his defibrillator downloaded suggesting he was in atrial fibrillation with rapid ventricular rates. He has also been followed by pulmonary medicine. He noted that although he had some abdominal distention, he actually felt reasonably well until last evening where he noted progressive dyspnea. He did note 2-pillow orthopnea over the last 5-7 days and last evening he noted that he needed to sleep in a chair. When he came to the Emergency Room, he was significantly hypoxic, requiring BiPAP, he was tachycardic and found to be in atrial fibrillation with a rapid ventricular response. He denies any chest pain, chest pressure, chest heaviness, presyncope or syncope. He notes just with a small amount of diuretics he felt much better, he was off BiPAP and his pulse oximetry had improved. As you know, he does have easy bruising given his pancytopenia. He denies any dark black tarry stools or blood in his stool. He does have a cough, although his blood pressures in the Emergency Room were in the 80s and 90s systolic, he was not lightheaded or dizzy. He looks chronically ill, but did not look any worse to me than he has over the past number of months. The rest of the review of systems otherwise negative. PAST MEDICAL HISTORY: 1. Coronary artery disease status post myocardial infarction in August 2006 with in-stent restenosis in 2006. 2. Cardiac catheterization - May 2014 with total occlusion of the [place] circumflex, high degree disease in the proximal and mid RCA, status post angioplasty and stenting and mild to moderate LAD diagonal disease. His HALEY graft to the LAD was occluded. 3. Coronary bypass grafting in 2007 with a HALEY to the LAD. 4. Paroxysmal atrial fibrillation prior to his bypass surgery and status post aFib ablation preoperatively, status post maze procedure intraoperatively in April 2007. 5. Abdominal aortic aneurysm measuring 5 cm x 5.1 cm for medical therapy given his complex medical conditions. 6. Peripheral arterial disease status post stenting of his leg in 2009 with a fem-pop of his right leg in November 2012. 7. History of severe left ventricular dysfunction with an EF in the range of 15% with severe pulmonary hypertension and type 2 diastolic dysfunction. 8. Recent echocardiogram May 2016 with an EF of 45% with global hypokinesis in the inferior and inferolateral santiago being more hypokinetic, normal RV size and function, moderate to severe tricuspid regurgitation with moderate pulmonary hypertension and mild aortic insufficiency. 9. Hypertension. 10. Hypercholesterolemia. 11. COPD. 12. Lupus. 13. Crohn disease with multiple abdominal surgeries and a history of an ileus x3. 14. Status post embolization of a portion of his left renal artery secondary to a significant hematoma. 15. Status post single chamber defibrillator with a [employer] Ellipse device. 16. Status post right carotid endarterectomy secondary to amaurosis fugax August 2016. 17. Pancytopenia consistent with myelodysplastic syndrome and a platelet count currently of 68,000. SOCIAL HISTORY: He denies any tobacco use, stopping more than 10 years ago. He smoked a pack per day for 20 years, then smoked a pipe. 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 He is . FAMILY HISTORY: Dad at 92 of old age. Mom lived until age 84 and from complications related to diabetes. ALLERGIES: No known drug allergies. MEDICATIONS: Reviewed in electronic medical record. PHYSICAL EXAMINATION: GENERAL: He is awake, alert, oriented x3. He is chronically ill. VITAL SIGNS: His heart rate in the Emergency Room was 119, respirations 26, blood pressure 106/70. He was 99% on 4 liters. HEENT: His sclerae is anicteric. NECK: His carotid upstrokes were difficult to palpate given his tachycardia. His jugular venous pressure appeared elevated. He did not have carotid bruits. LUNGS: Crackles in the bases bilaterally with globally decreased breath sounds. No rhonchi or wheezing. HEART: Irregular rate and rhythm (tachycardic), holosystolic murmur at the left sternal border radiating to the apex. ABDOMEN: Soft, mildly distended, firm, nontender. EXTREMITIES: Trace to mild bilateral lower extremity edema. SKIN: Chronic changes related to his lupus. PSYCHIATRIC: His affect appeared appropriate. LABORATORY STUDIES: Hemoglobin 11, platelet count is 68,000. Sodium 134, potassium 4.1, BUN 27, creatinine 0.91. Troponin 0.472 with a proBNP of 6987. IMAGING DATA: Chest x-ray - cardiomegaly and mild pulmonary vascular congestion. IMPRESSION: 1. Acute on chronic systolic heart failure. 2. Atrial fibrillation with a rapid ventricular response. 3. Borderline hypotension. 4. Coronary artery disease status post most recent cardiac catheterization in May 2014 with total occlusion of the circumflex, status post angioplasty and stenting of high grade disease in the proximal and mid right coronary artery and mild to moderate left anterior descending coronary artery disease with known occluded left internal mammary artery graft to the left anterior descending coronary artery. 5. History of mild left ventricular dysfunction in May 2016 with an ejection fraction in the range of 45%. 6. History of significant tricuspid regurgitation with moderate pulmonary hypertension and a pulmonary artery pressure of 55 mmHg. 7. Myelodysplastic syndrome with a platelet count of 68,000. As was discussed with Dr. Lincoln by phone, would plan to load him with digoxin 0.25 mg IV with 4 doses today and then 0.125 mg daily. If his heart rate remains fast given his relatively low blood pressure, one option is to consider amiodarone. The concern with amiodarone is there is a small chance that he could convert from atrial fibrillation to sinus rhythm. Given the fact he cannot be anticoagulated with his myelodysplastic syndrome that would increase his risk of having a stroke. We will try to avoid this if at all possible. Given his low platelet count and his history of easy bruising, the risk of anticoagulation at this point outweighs the benefit. He is off BiPAP currently, he has received IV diuretics and is diuresing nicely and feels better. We will continue to watch his volume status and adjust his diuretics accordingly. It is possible that with the loss of his atrial kick, he may have worsening dyspnea and heart failure. This will be very challenging given the fact that we cannot anticoagulate him given his current platelet count. long term care administrator if and when he stabilizes, would be to consider a Watchman device, although even with a Watchman device, he would require some degree of anticoagulation, usually for 6 weeks and dual antiplatelet therapy for an additional 6 weeks. Certain high risk individuals are currently only getting dual antiplatelet therapy for entire 12-week period. We will continue to follow him with you. Thank you for allowing us to participate in his care.
[2017-07-07] MEDS: CHOLECALCIFEROL 1000 INTER.UNIT TAB PO SCH (20:25)
[2017-07-07] MEDS: SIMVASTATIN 40 MG TAB PO SCH (20:26)
--- NOTE | 2017-07-07 23:46 | History and Physical ---
History & Physical Date & Time of Service: Jul 07, 2017 at 07:23 Chief Complaint: Short Of Breath Primary Care Physician: Tr Wild M.D. History of Present Illness Source: patient, family This patient is an 81-year-old male with a history of chronic combined systolic and diastolic CHF, AICD, CAD status post CABG, paroxysmal atrial fibrillation status post MAZE procedure, HTN, severe pulmonary HTN, COPD, Crohn's disease, PAD, AAA, amaurosis fugax, MDS, Raynaud's syndrome, SLE, and history of hematuria as well as renal bleed requiring partial renal artery embolization. He presents to the ER with 5-7 days of shortness of breath that became acutely worse in the last 24 hours. He reports an increase in sputum that was thick and white, as well as cough in the last few days-his has had a cough as well. He denies fevers or chills. He did have some chest pressure a few days ago which is now gone. He saw his excavating supervisor 2 days prior to admission and was given azithromycin and started on a prednisone burst of 40 mg daily. He was noted in the outpatient chart at that time to have an irregular heartbeat with a rate greater than 100. He has also had orthopnea, increased leg swelling , and weight gain. He called his hazmat cdl driver's office last week and was advised to take Lasix but this did not improve him significantly. He denies palpitations and was unaware that he is in rapid atrial fibrillation. He came in by ambulance and was severely hypoxic in the low 80s, required BiPAP , and was given Solu-Medrol, Lasix IV, Levaquin, Zosyn, and 10 mg of IV diltiazem. He was noted to be in rapid atrial fibrillation, a chest x-ray showed the appearance of pulmonary vascular congestion without pneumonia. His proBNP was significantly elevated at almost 7000, and his troponin was elevated at 0.472. His ECG showed some nonspecific ST changes, as well as rapid atrial fibrillation in the 140s. At the time I saw him, he was just weaning off of the BiPAP onto nasal cannula and felt much improved already. He had urinated 500 mL's of urine in the ER. Past Medical/Surgical History PMH: Chronic combined systolic and diastolic CHF-previous EF 15%, then improved to 55 -60% in 05/2016 AICD CAD status post CABG 2007 Paroxysmal atrial fibrillation which had not recurred status post MAZE procedure in 2007 HTN Severe pulmonary HTN COPD PAD AAA-approximately 5 cm on last exam-has deferred surgical management due to comorbidities for now Amaurosis fugax JOSE MDS with thrombocytopenia Raynaud's syndrome SLE History of hematuria and renal bleed requiring partial renal artery embolization Crohn's disease with h/o two bowel resections in the past NSVT Mild mitral regurgitation. Mild tricuspid regurgitation PSH: CABG with MAZE procedure 2007 Right femoropopliteal bypass Right carotid endarterectomy-07/2016 Multiple bowel surgeries Family History Omitted due to advanced age Social History Smoking Status: Former Smoker Drug Use: none Marital Status: Housing status: lives with family Occupational Status: retired Allergies Coded Allergies: Ibuprofen (Verified Allergy, Unknown, ileus, 03/02/17) Morphine (Verified Adverse Reaction, Intermediate, NARCOTICS-PATIENT GETS AN ILEUS, 07/07/17) IF PATIENT IS UNABLE TO MOVE AND WALK AFTER RECEIVING ANY NARCOTICS, HE WILL GET AN ILEUS. Home Medications Scheduled Aspirin (Aspirin Chewable), 81 MG PO DAILY Azithromycin (Zithromax Z-Charly), 1 PKT PO UD B-Complex Vitamins (Vitamin B Complex), 1 TAB PO QAM Carvedilol (Coreg), 3.125 MG PO AMPM Cholecalciferol (D 1000), 1 TAB PO BID Cyanocobalamin (Vitamin B12), 1,000 MCG PO QAM Fluticasone Prop/Salmeterol (Advair Diskus 250-50 Mcg/Dose), 1 PUFF INH BID Folic Acid (Folvite), 1 MG PO QAM Lisinopril (Zestril), 5 MG PO DAILY Lutein (Lutein), 6 MG PO BID Prednisone Tab (Prednisone), 10 MG PO DIRECTED Simvastatin (Zocor), 40 MG PO QPM Tiotropium [place] (Spiriva Handihaler), 1 CAP INH DAILY Scheduled PRN Albuterol (Ventolin Hfa), 2 PUFFS INH q4-6 PRN for Shortness of Breath Furosemide (Lasix), 20 MG PO 3XWK PRN for prn Levalbuterol (Levalbuterol HCl), 1 VIAL NEB Q4H PRN for Shortness of Breath Review of Systems Constitutional: No fever, No chills Eyes: No problem reported ENT: No nasal symptoms, No sore throat Respiratory: + cough, + sputum, + shortness of breath, + dyspnea on exertion Cardiovascular: + orthopnea, + edema, No chest pain Abdomen: No pain, No nausea, No vomiting, No diarrhea, No constipation, No GI bleeding Musculoskeletal: No problem reported Genitourinary - Male: No problem reported Neurologic: No problem reported Psychiatric: No problem reported Endocrine: No problem reported Hematologic / Lymphatic: No problem reported Integumentary: No problem reported Allergic / Immunologic: No problem reported Physical Exam Vital Signs Date Time Temp Pulse Resp B/P (MAP) Pulse Ox O2 Delivery O2 Flow Rate FiO2 07/07/17 06:29 BiPAP 40 07/07/17 06:15 36.3 160 30 132/103 100 Non-Rebreather 15.0 07/07/17 06:15 Non-Rebreather 07/07/17 06:00 155 100 07/07/17 05:51 142 32 126/93 100 Non-Rebreather 07/07/17 05:39 163 General Appearance: + mild distress (With mild tachypnea, just coming off BiPAP when I first saw him), + thin Head: normocephalic, atraumatic Eyes: normal inspection, PERRL, EOMI, sclerae normal ENT: hearing grossly normal, pharynx normal Neck: supple, no adenopathy, trachea midline Respiratory/Chest: no accessory muscle use, + respiratory distress (Mild as above), + decreased breath sounds (Diminished breath sounds throughout, with crackles at the bases bilaterally, and scattered expiratory wheezes) Cardiovascular: + irregularly irregular (With tachycardia, unable to auscultate a murmur), + pertinent finding (1+ dorsalis pedis pulses bilaterally , with evidence of diffuse pitting with small scabs of all the toes without signs of infection) Abdomen/GI: normal bowel sounds, non tender, soft, no organomegaly Back: normal inspection Extremities/Musculoskelatal: + swelling (1-2+ pitting edema of the legs to the knees bilaterally) Neurologic/Psych: no motor/sensory deficits, alert, normal mood/affect, oriented x 3 Skin: normal color, warm/dry, no rash Diagnostics Laboratory Results Results Past 24 Hours Test 07/07/17 05:46 07/07/17 05:47 Range/Units White Blood Count 4.91 4.8-10.8 K/uL Red Blood Count 3.63 4.7-6.1 M/uL Hemoglobin 11.0 14.0-18.0 g/dL Hematocrit 35.4 42-52 % Mean Corpuscular Volume 97.5 80-100 fL Mean Corpuscular Hemoglobin 30.3 25-34 pg Mean Corpuscular Hemoglobin Concent 31.1 32-36 g/dl Platelet Count 68 130-400 K/uL Mean Platelet Volume 11.6 7.4-10.4 fL Neutrophils (%) (Auto) 45.7 % Lymphocytes (%) (Auto) 18.3 % Monocytes (%) (Auto) 34.8 % Eosinophils (%) (Auto) 0.2 % Basophils (%) (Auto) 0.2 % Neutrophils # (Auto) 2.24 1.4-6.5 K/uL Lymphocytes # (Auto) 0.90 1.2-3.4 K/uL Monocytes # (Auto) 1.71 0.11-0.59 K/uL Eosinophils # (Auto) 0.01 0-0.5 K/uL Basophils # (Auto) 0.01 0-0.2 K/uL RDW Standard Deviation 63.6 36.4-46.3 fL RDW Coefficient of Variation 17.9 11.5-14.5 % Immature Granulocyte % (Auto) 0.8 % Immature Granulocyte # (Auto) 0.04 0.00-0.02 K/uL Nucleated RBC Absolute Count (auto) 0.07 0-0 K/uL Nucleated Red Blood Cells % 1.3 % Platelet Estimate DECREASED Large Platelets 1+ Ovalocytes 1+ Echinocytes 1+ Prothrombin Time 12.6 9.0-12.0 SECONDS Prothromb Time International Ratio 1.2 0.9-1.1 Activated Partial Thromboplast Time 27.5 21.0-31.0 SECONDS Partial Thromboplastin Ratio 1.1 Sodium Level 134 136-145 mmol/L Potassium Level 4.1 3.5-5.1 mmol/L Chloride Level 100 98-107 mmol/L Carbon Dioxide Level 21 21-32 mmol/L Anion Gap 13.0 3-11 mmol/L Blood Urea Nitrogen 27 7-18 mg/dl Creatinine 0.91 0.60-1.40 mg/dl Est Creatinine Clear Calc Drug Dose 68.0 ml/min Estimated GFR () 91.3 Estimated GFR (Non- 78.8 BUN/Creatinine Ratio 29.1 10-20 Random Glucose 172 70-99 mg/dl Calcium Level 8.7 8.5-10.1 mg/dl Total Bilirubin 0.6 0.2-1 mg/dl Aspartate Amino Transf (AST/SGOT) 40 15-37 U/L Alanine Aminotransferase (ALT/SGPT) 28 12-78 U/L Alkaline Phosphatase 120 45-117 U/L Troponin I 0.472 0-0.045 ng/ml Pro-B-Type Natriuretic Peptide 6987 0-1800 pg/ml Total Protein 7.3 6.4-8.2 gm/dl Albumin 3.2 3.4-5.0 gm/dl Globulin 4.1 2.5-4.0 gm/dl Albumin/Globulin Ratio 0.8 0.9-2 Bedside Lactic Acid Venous 6.65 0.90-1.70 mmol/L Microbiology Results 07/07/17 Blood Culture, Received Pending 07/07/17 Blood Culture, Received Pending Diagnostic Radiology Chest x-ray images personally reviewed by me and consistent with pulmonary vascular congestion, evidence of CABG, AICD present, cardiomegaly, and trace bilateral pleural effusions EKG Rapid atrial fibrillation, left anterior fascicular block, nonspecific ST changes, rate 157 Impression Assessment and Plan This patient is an 81-year-old male with a history of chronic combined systolic and diastolic CHF, AICD, CAD status post CABG, paroxysmal atrial fibrillation status post MAZE procedure, HTN, severe pulmonary HTN, COPD, Crohn's disease, PAD, AAA, amaurosis fugax, MDS, Raynaud's syndrome, SLE, and history of hematuria as well as renal bleed requiring partial renal artery embolization. He presents to the ER with 5-7 days of shortness of breath that became acutely worse in the last 24 hours. He reports an increase in sputum that was thick and white, as well as cough in the last few days-his has had a cough as well. He denies fevers or chills. He did have some chest pressure a few days ago which is now gone. He saw his excavating supervisor 2 days prior to admission and was given azithromycin and started on a prednisone burst of 40 mg daily. He was noted in the outpatient chart at that time to have an irregular heartbeat with a rate greater than 100. He has also had orthopnea, increased leg swelling , and weight gain. He called his hazmat cdl driver's office last week and was advised to take Lasix but this did not improve him significantly. He denies palpitations and was unaware that he is in rapid atrial fibrillation. He came in by ambulance and was severely hypoxic in the low 80s, required BiPAP , and was given Solu-Medrol, Lasix IV, Levaquin, Zosyn, and 10 mg of IV diltiazem. He was noted to be in rapid atrial fibrillation, a chest x-ray showed the appearance of pulmonary vascular congestion without pneumonia. His proBNP was significantly elevated at almost 7000, and his troponin was elevated at 0.472. His ECG showed some nonspecific ST changes, as well as rapid atrial fibrillation in the 150s. At the time I saw him, he was just weaning off of the BiPAP onto nasal cannula and felt much improved already. He had urinated 500 mL's of urine in the ER. Rapid atrial fibrillation-this probably came on at least 1 month ago given outpatient notations on physical exam, cardiology also notes that this was picked up on recent interrogation of his device. His blood pressure is quite low at this time. Discussed case from the ER with Dr. Brown upon admission. -We will load with IV digoxin 250 mcg every 4 hours 4 doses today and then start p.o. digoxin 125 mcg in the morning -Check digoxin level in the morning -Admit to telemetry unit -Defer on anticoagulation at this time after discussion with cardiology given his significant thrombocytopenia from MDS, also with a history of bleed in the left kidney requiring renal artery embolization previously-discussed with the patient and his at the time of admission -Continue home carvedilol 3.125 mg p.o. twice daily -If rate is not controlled with digoxin, will consider IV amiodarone however this may convert him to normal rhythm and without being anticoagulated, this could have a poor outcome -Greatly appreciate cardiology consultation Acute on chronic combined systolic and diastolic CHF/severe pulmonary HTN- likely secondary to rapid atrial fibrillation -Diuresis with IV Lasix 20 mg twice daily -Strict I's and O's, daily weights, low-sodium diet -Check echocardiogram to reassess function given that he is likely been in rapid atrial fibrillation for some time now -hold lisinopril due to hypotension Acute exacerbation of COPD/acute hypoxic respiratory failure-severely hypoxic on admission in the low 80s, required BiPAP and was in significant respiratory distress. Improved with BiPAP and IV diuretics. Now weaned back to nasal cannula. Chest x-ray with pulmonary vascular congestion and trace bilateral pleural effusions, no evidence of pneumonia. He did receive 1 dose of Zosyn and 1 dose of Levaquin in the ER. -Continue IV Solu-Medrol -Bronchodilators using levalbuterol given tachycardia -Continue home Spiriva, Advair -Continue Levaquin, renally dosed, for COPD exacerbation with acute bronchitis for total of 7 days -Blood cultures were drawn in the ER and should be followed, but no evidence of sepsis -Lactate was elevated at 6.65 on admission, could be secondary to considerable respiratory distress-repeat lactate level later today CAD status post CABG and GABRIEL to the LAD/HTN/PAD/AAA/elevated troponin-elevated troponin likely demand ischemia, he has no current symptoms of ACS. Blood pressures are quite low at this time likely due to rapid atrial fibrillation. AAA has been followed closely by vascular surgery at [place] and deferring nonsurgical management due to multiple comorbidities at this time -Trend serial troponin -Continue aspirin, statin, Coreg -holding lisinopril as above for hypotension Crohn's disease with history of bowel surgeries and small bowel obstruction-no acute issues History of amaurosis fugax/JOSE/previous right CEA-no acute issues at this time -Continue aspirin, statin MDS/pancytopenia-platelets are the lowest they have been upon review of his previous labs available here-platelets are 68K today, anemia is mild and stable with a hemoglobin of 11.0, WBCs low at 4. Likely his counts are worse due to acute illness. He is followed by dot compliance specialist, Dr. Nomi Rivera. -Follow CBC -Consider consultation with hematology if counts continued to decline -We will not anticoagulate him given his significant thrombocytopenia SLE/Raynaud's syndrome-stable at this time, with pitting on the feet without evidence of gangrene or infection -May benefit at some point from a calcium channel melissa Prophylaxis-ADILENE hose and SCDs only at this time, if platelets improve, could consider SQ heparin Disposition-from home and normally independent, will need PT/OT evaluations when more stable Full code Resuscitation Status Full code VTE Prophylaxis Will order VTE Prophylaxis: Yes Reason for no VTE drug order: Contraindicated Note Total Time: Critical Care 30 - 74 minutes Additional Copies To Tr Wild M.D.
[2017-07-08] VITALS (10 sets, daily range): BP systolic 92–125; BP diastolic 57–80; PULSE 78–101; TEMP 36.3–36.9; O2SAT 91–99
[2017-07-08] MEDS: LEVALBUTEROL 1.25MG/0.5ML NEB INH SCH ×4 (01:45→19:38)
[2017-07-08 05:44] LABS: HEMATOCRIT 32.5 % (42-52); HEMOGLOBIN 10.3 g/dL (14.0-18.0); MEAN CELL VOLUME 95.9 fL (80-100); MEAN CORPUSCULAR HEMOGLOBIN 30.4 pg (25-34); MEAN CORPUSCULAR HGB CONC 31.7 g/dl (32-36); RED CELL DISTRIBUTION WIDTH CV 17.7 % (11.5-14.5); RED CELL DISTRIBUTION WIDTH SD 61.5 fL (36.4-46.3); WHITE BLOOD COUNT 2.35 K/uL (4.8-10.8)
[2017-07-08 05:56] LABS: MEAN PLATELET VOLUME 10.9 fL (7.4-10.4); PLATELET COUNT 47 K/uL (130-400)
[2017-07-08] MEDS ORDERED: LEVOFLOXACIN / D5W 500 MG in PREMIXED IN D5W 100 ML IV SCH (06:00)
[2017-07-08] MEDS: METHYLPREDNISOLONE IV 60 MG in SYRINGE 0 ML IV SCH ×2 (06:10→17:36)
[2017-07-08 06:17] LABS: CALCIUM 8.5 mg/dl (8.5-10.1); CREATININE 0.82 mg/dl (0.60-1.40); POTASSIUM 4.1 mmol/L (3.5-5.1)
[2017-07-08 06:42] LABS: IG# 0.04 K/uL (0.00-0.02); LYMPH % 8.1 %; LYMPH ABS # 0.19 K/uL (1.2-3.4); MONO % 8.1 %; MONO ABS # 0.19 K/uL (0.11-0.59); NEUT % 82.1 %; NEUT ABS # 1.93 K/uL (1.4-6.5)
[2017-07-08] MEDS: FUROSEMIDE INJ 20 MG in SYRINGE 0 ML IV SCH ×2 (08:22→16:33)
[2017-07-08] MEDS: CHOLECALCIFEROL 1000 INTER.UNIT TAB PO SCH ×2 (08:23→20:15)
[2017-07-08] MEDS: VITAMIN B COMPLEX TAB PO SCH (08:23)
[2017-07-08] MEDS: CARVEDILOL 3.125 MG TAB PO SCH ×2 (08:23→20:16)
[2017-07-08] MEDS: ASPIRIN 81 MG ECTAB PO SCH (08:23)
[2017-07-08] MEDS: CYANOCOBALAMIN 500 MCG TAB (VIT B-12) PO SCH (08:24)
[2017-07-08] MEDS: GUAIFENESIN 600 MG TABCR PO SCH ×2 (08:24→20:15)
[2017-07-08] MEDS: FLUTICASONE/SALMETEROL 250/50 (ADVAIR) 14 PUFF/1 INHALER INH SCH ×2 (08:25→20:15)
[2017-07-08] MEDS: TIOTROPIUM BROMIDE 5 PUFF/90 MCG INH INH SCH (08:28)
--- NOTE | 2017-07-08 09:16 | Clinical Documentation Query ---
CLINICAL DOCUMENTATION QUERY QUERY 1 OF 2 81 yo male admitted with acute systolic/diastolic CHF, presents with elevated troponins peaking at 1.450. EKG documents A-fib with Twave inversion and ST & T wave abnormality. Patient presented with pulse ox of 88%. In your clinical opinion is this patient being managed for: ( x) Type 2 MN due to demand ischemia ( ) Not Agree ( ) Other explanation of clinical findings (Please Explain) ( ) Unable to determine (Please Define) ( ) Need to Discuss The medical record reflects the following clinical findings, treatment, and risk factors. Clinical Indicators: As above Treatment: O2 via NRB, telemetry, Cardiology consult, echo, serial EKGs, serial troponins Risk Factors: Age, acute respiratory failure, CHF, A-fib, HTN, COPD, CAD QUERY 2 OF 2 SIRS may be indicated by 2 or more of the following; however, consider the entire clinical scenario... Temp < 96.8*F/36*C or > 100.4*F/38*C Resps > 20 breaths/min Pulse > 90 bpm PaCO2 <32 mmHg WBC > 12K or < 4K or Bands > 10% Patient has WBC of 2.35, respirations of 22 to 32, and pulse range 163 to 112. In your clinical opinion is this patient being managed for: ( x ) Sepsis ( ) Not Agree ( ) Other explanation of clinical findings (Please Explain) ( ) Unable to determine (Please Define) ( ) Need to Discuss The medical record reflects the following clinical findings, treatment, and risk factors. Clinical Indicators: As above Treatment: IV Zosyn, telemetry, O2, serial CBCs Risk Factors: Age, acute respiratory failure, COPD, CHF, outpatient tx for bronchitis Please clarify and document your clinical opinion in the progress notes and discharge summary. Terms such as "probable", "suspected", "likely", "questionable", "possible", or "still to be ruled out" are acceptable. IF IN AGREEMENT, YOU MUST DOCUMENT ABOVE DIAGNOSTIC STATEMENT IN DAILY PROGRESS NOTES AND DISCHARGE SUMMARY. This document is not part of the patient's record. Thank You, Charla Duncan RN [phone]
--- NOTE | 2017-07-08 09:47 | Cardiology Follow-Up ---
Subjective General Date of Service: Jul 08, 2017. Pt evaluation today including: conversation w/ patient, chart review, lab review, review of studies History of Present Illness The patient is a 81 year old male Allergies Coded Allergies: Ibuprofen (Verified Allergy, Unknown, ileus, 03/02/17) Morphine (Verified Adverse Reaction, Intermediate, NARCOTICS-PATIENT GETS AN ILEUS, 07/07/17) IF PATIENT IS UNABLE TO MOVE AND WALK AFTER RECEIVING ANY NARCOTICS, HE WILL GET AN ILEUS. Social History Smoking Status: Former Smoker Hx Tobacco Use In Past Year?: No (QUIT 1989, SMOKED 1PPD FOR 10-15 YRS, PIPE SMOKING ) Hx Alcohol Use - Type And Amou: No Hx Substance Use - Type And Am: No Problem List Medical Problems: (1) Abnormal ECG Status: Acute (2) Congestive heart failure Status: Acute (3) Hematuria Status: Acute (4) Ileus Status: Acute (5) Nausea & vomiting Status: Acute (6) Partial small bowel obstruction Status: Acute (7) Right lower lobe pneumonia Status: Acute Review of Systems Respiratory: + shortness of breath, No cough, No dyspnea at rest Cardiac: No chest pain, No palpitations Physical Exam Vital Signs Last Vital Signs Documentation Date Time Temp Pulse Resp B/P (MAP) Pulse Ox O2 Delivery O2 Flow Rate FiO2 07/08/17 08:00 Nasal Cannula 2.0 07/08/17 07:45 36.9 83 20 118/70 (86) 99 07/07/17 06:29 40 Physical Exam Constitutional: Level of Distress: chronically ill Lungs: Auscultation: decreased breath sounds (Globally) Cardiovascular: Heart Auscultation: II/ WSM, irregular rate rhythm Abdomen: Bowel Sounds: normal Inspection & Palpation: soft, no tenderness, guarding & rebound, distended Extremities: no edema Assessment and Plan Assessment and Plan IMPRESSION: 1. Acute on chronic systolic heart failure. 2. Atrial fibrillation with a rapid ventricular response--improved 3. Borderline hypotension--resolved 4. Coronary artery disease status post most recent cardiac catheterization in May 2014 with total occlusion of the circumflex, status post angioplasty and stenting of high grade disease in the proximal and mid right coronary artery and mild to moderate left anterior descending coronary artery disease with known occluded left internal mammary artery graft to the left anterior descending coronary artery. 5. History of mild left ventricular dysfunction in May 2016 with an ejection fraction in the range of 45%. 6. History of significant tricuspid regurgitation with moderate pulmonary hypertension and a pulmonary artery pressure of 55 mmHg. 7. Myelodysplastic syndrome with a platelet count of 68,000. I would not AC with PLT count HR much improved --continue with Coreg and Dig BP improved and stable continue with IV lasix today--negative 1500cc yesterday Follow [facility] to make sure we do not make him excessively prerenal Troponin elevated secondary to demand and hypoxemia with known CAD Laboratory Results Last 24 Hours Test 07/07/17 16:00 07/07/17 23:24 07/08/17 05:28 Urine Color YELLOW Urine Appearance CLEAR Urine pH 5.0 Urine Specific [place] 1.013 Urine Protein NEG Urine Glucose (UA) NEG Urine Ketones NEG Urine Occult Blood NEG Urine Nitrite NEG Urine Bilirubin NEG Urine Urobilinogen NEG Urine Leukocyte Esterase NEG Urine WBC (Auto) 1-5 /hpf Urine RBC (Auto) 0-4 /hpf Urine Hyaline Casts (Auto) 0 /lpf Urine Epithelial Cells (Auto) 5-10 /lpf Urine Bacteria (Auto) NEG Lactic Acid Level 2.6 mmol/L 1.3 mmol/L Troponin I 1.450 ng/ml 0.982 ng/ml White Blood Count 2.35 K/uL Red Blood Count 3.39 M/uL Hemoglobin 10.3 g/dL Hematocrit 32.5 % Mean Corpuscular Volume 95.9 fL Mean Corpuscular Hemoglobin 30.4 pg Mean Corpuscular Hemoglobin Concent 31.7 g/dl Platelet Count 47 K/uL Mean Platelet Volume 10.9 fL Neutrophils (%) (Auto) 82.1 % Lymphocytes (%) (Auto) 8.1 % Monocytes (%) (Auto) 8.1 % Eosinophils (%) (Auto) 0.0 % Basophils (%) (Auto) 0.0 % Neutrophils # (Auto) 1.93 K/uL Lymphocytes # (Auto) 0.19 K/uL Monocytes # (Auto) 0.19 K/uL Eosinophils # (Auto) 0.00 K/uL Basophils # (Auto) 0.00 K/uL RDW Standard Deviation 61.5 fL RDW Coefficient of Variation 17.7 % Immature Granulocyte % (Auto) 1.7 % Immature Granulocyte # (Auto) 0.04 K/uL Large Platelets 1+ Sodium Level 135 mmol/L Potassium Level 4.1 mmol/L Chloride Level 99 mmol/L Carbon Dioxide Level 29 mmol/L Anion Gap 7.0 mmol/L Blood Urea Nitrogen 25 mg/dl Creatinine 0.82 mg/dl Est Creatinine Clear Calc Drug Dose 75.4 ml/min Estimated GFR () 96.1 Estimated GFR (Non- 82.9 BUN/Creatinine Ratio 31.1 Random Glucose 123 mg/dl Calcium Level 8.5 mg/dl Magnesium Level 1.7 mg/dl Digoxin Level 1.8 ng/ml
--- NOTE | 2017-07-08 09:48 | DIAGNOSTIC IMAGING REPORT ---
CHEST 2 VIEWS ROUTINE HISTORY: Atrial Fibrillation COMPARISON: Chest 07/07/2017. FINDINGS: The heart remains enlarged. There are poststernotomy changes and a left-sided single lead pacemaker/defibrillator. Emphysema. No pneumothorax. No pleural effusions. No new focal lung consolidations to suggest pneumonia. No evidence for pulmonary edema. Stable compression deformities within the thoracic spine. Therefore, these are considered to be old. Possible 1 cm nodule within the periphery the right midlung zone. IMPRESSION: 1. No acute process within the chest. 2. Emphysema. 3. Possible 1 cm nodule within the right midlung zone. Follow-up nonemergent chest CT is recommended for further evaluation. Electronically signed by: Dayo Kim M.D. 07/08/2017 9:47 AM Dictated Date/Time: 07/08/2017 9:42 AM
--- NOTE | 2017-07-08 10:13 | ECHOCARDIOGRAM REPORT ---
*NOTICE TO RECEIVING LIBERTARIAN AGENCY This information is strictly Confidential and protected under [place] law. [place] law prohibits you from making any further disclosure of this information unless further disclosure is expressly permitted by the written consent of the person to whom it pertains or is authorized by law. A general authorization for the release of medical or other information is not sufficient for this purpose. Hospital accepts no responsibility if the information is made available to any other person, INCLUDING THE PATIENT. Interpretation Summary * Name: ENRIQUE QUINN Study Date: 07/08/2017 06:26 AM BP: 99/57 mmHg * Patient Location: C.2T\S\S240\S\1 HR: 87 * : 1935 (M/d/yyy) Gender: Male Height: 72 in * Age: 81 yrs Ethnicity: [place] Weight: 166 lb * Ordering Physician: Dahlia Lincoln * Referring Physician: Self, Referred * Performed By: Jean-Pierre Katz RCS * * Reason For Study: CHF * BSA: 2.0 m2 * -- Conclusions -- * The left ventricle is moderately dilated. * There is normal left ventricular wall thickness. * Left ventricular systolic function is severely reduced. * Ejection Fraction = 20-25%. * There is severe global hypokinesis of the left ventricle. * The right ventricular systolic function is moderately reduced. * TAPSE 1.0 * ICD lead in the RV * The left atrium is severely dilated. * The right atrium is moderately dilated. * Aortic valve sclerosis mild, without significant aortic valvular stenosis. * There is mild to moderate mitral regurgitation. * There is severe tricuspid regurgitation. * PA pressure 40 mm/hg * Elevated LA pressures * Compared to his prior outpt echo the LVEF has declined from 40-45% to 20-25% Procedure Details * A complete two-dimensional transthoracic echocardiogram was performed (2D, M-mode, Doppler and color flow Doppler). Left Ventricle * The left ventricle is moderately dilated. * There is normal left ventricular wall thickness. * Ejection Fraction = 20-25%. * Left ventricular systolic function is severely reduced. * There is severe global hypokinesis of the left ventricle. Right Ventricle * The right ventricle is grossly normal size. * The right ventricular systolic function is moderately reduced. * TAPSE 1.0 ICD lead in the RV Atria * The left atrium is severely dilated. * The right atrium is moderately dilated. Mitral Valve * The mitral valve is grossly normal. * There is mild to moderate mitral regurgitation. Tricuspid Valve * The tricuspid valve is not well visualized, but is grossly normal. * There is severe tricuspid regurgitation. * PA pressure 40 mm/hg Aortic Valve * Aortic valve sclerosis mild, without significant aortic valvular stenosis. * Mild aortic regurgitation. Pulmonic Valve * The pulmonic valve is not well seen, but is grossly normal. * Mild pulmonic valvular regurgitation. Great Vessels * Mild aortic root dilatation. Pericardium/Pleural * There is no pericardial effusion. Great Vessels * Normal inferior vena cava diameter and respiratory variation suggests normal central venous pressure. Left Ventricular Diastolic Function * Elevated LA pressures MMode 2D Measurements and Calculations IVSd 1.0 cm IVSs 1.2 cm LVIDd 6.4 cm LVIDs 5.3 cm LVPWd 1.0 cm LVPWs 1.1 cm IVS/LVPW 0.99 FS 16.8 % EDV(Teich) 207.7 ml ESV(Teich) 136.5 ml EF(Teich) 34.3 % EDV(cubed) 260.8 ml ESV(cubed) 150.5 ml EF(cubed) 42.3 % % IVS thick 18.0 % % LVPW thick 8.0 % LV mass(C)d 281.6 grams LV mass(C)dI 143.1 grams/m\S\2 LV mass(C)s 243.9 grams LV mass(C)sI 123.9 grams/m\S\2 SV(Teich) 71.3 ml SI(Teich) 36.2 ml/m\S\2 SV(cubed) 110.4 ml SI(cubed) 56.1 ml/m\S\2 Ao root diam 4.1 cm Ao root area 13.0 cm\S\2 ACS 2.3 cm LA dimension 5.4 cm asc Aorta Diam 3.5 cm LA/Ao 1.3 EDV(MOD-sp4) 181.0 ml ESV(MOD-sp4) 147.0 ml EF(MOD-sp4) 18.8 % EDV(MOD-sp2) 231.0 ml ESV(MOD-sp2) 165.0 ml EF(MOD-sp2) 28.6 % SV(MOD-sp4) 34.0 ml SI(MOD-sp4) 17.3 ml/m\S\2 SV(MOD-sp2) 66.0 ml SI(MOD-sp2) 33.5 ml/m\S\2 Doppler Measurements and Calculations MV E max seth 80.8 cm/sec MV P1/2t max seth 66.0 cm/sec MV P1/2t 57.9 msec MVA(P1/2t) 3.8 cm\S\2 MV dec slope 334.1 cm/sec\S\2 MV dec time 0.20 sec Ao V2 max 74.7 cm/sec Ao max PG 2.2 mmHg Ao max PG (full) 0.55 mmHg AI max seth 261.1 cm/sec AI max PG 27.3 mmHg AI dec slope 183.6 cm/sec\S\2 AI P1/2t 416.4 msec LV V1 max PG 1.7 mmHg LV V1 max 64.9 cm/sec PA V2 max 62.6 cm/sec PA max PG 1.6 mmHg TR max seth 258.8 cm/sec
--- NOTE | 2017-07-08 12:29 | Hospitalist Progress Note ---
Hospitalist Progress Note Date of Service Jul 08, 2017. Subjective Pt evaluation today including: conversation w/ patient Pt significantly improved today. No more SOB, has some cough and chest congestion but not bringing up much sputum, no CP. No abd pain or distension, leg swelling improved. Is urinating quite a bit, "I went ten times already this morning." Tele with A-fib, improved rates in the 90s-120s, had one run of 6 beats VT All Other Systems: Reviewed and Negative Objective Vital Signs Date Time Temp Pulse Resp B/P (MAP) Pulse Ox O2 Delivery O2 Flow Rate FiO2 07/08/17 11:36 36.4 84 20 121/75 (90) 07/08/17 08:00 Nasal Cannula 2.0 07/08/17 07:45 36.9 83 20 118/70 (86) 99 Room Air 07/08/17 07:20 81 16 98 Nasal Cannula 2.0 07/08/17 04:06 36.5 78 18 99/57 (71) 97 07/08/17 04:00 Nasal Cannula 2.0 07/08/17 00:01 36.3 94 18 92/57 (69) 97 Nasal Cannula 2.0 07/08/17 00:01 Nasal Cannula 2.0 07/07/17 22:41 92 07/07/17 20:20 59 14 93 Nasal Cannula 2.0 07/07/17 20:00 Nasal Cannula 2.0 07/07/17 19:18 95 07/07/17 19:02 36.6 89 22 101/75 (84) 97 Nasal Cannula 1.0 07/07/17 17:57 Nasal Cannula 2.0 07/07/17 15:38 112 07/07/17 15:20 36.8 98 22 101/67 (78) 97 Nasal Cannula 1.0 07/07/17 14:22 114 16 97 Nasal Cannula 2.0 07/07/17 13:20 36.0 104 14 104/65 (78) 96 3.0 07/07/17 13:07 36.3 115 26 101/68 99 07/07/17 12:47 115 26 101/68 99 Nasal Cannula 4.0 Physical Exam General Appearance: no apparent distress, + thin Eyes: normal inspection, sclerae normal ENT: hearing grossly normal Neck: trachea midline, + JVD (to 7cm) Respiratory/Chest: no respiratory distress, no accessory muscle use, + decreased breath sounds (diminished throughout but improved movement from yesterday, +diffuse exp wheezes, some rhonchi) Cardiovascular: + irregularly irregular (with normal rate) Abdomen: normal bowel sounds, non tender, soft Extremities: no calf tenderness, + swelling (trace pitting edema bilat to mid tibia) Neurologic/Psychiatric: alert, normal mood/affect, oriented x 3 Skin: normal color, warm/dry, no rash Laboratory Results Last 24 Hours Test 07/07/17 16:00 07/07/17 23:24 07/08/17 05:28 Urine Color YELLOW Urine Appearance CLEAR Urine pH 5.0 Urine Specific Moffit 1.013 Urine Protein NEG Urine Glucose (UA) NEG Urine Ketones NEG Urine Occult Blood NEG Urine Nitrite NEG Urine Bilirubin NEG Urine Urobilinogen NEG Urine Leukocyte Esterase NEG Urine WBC (Auto) 1-5 /hpf Urine RBC (Auto) 0-4 /hpf Urine Hyaline Casts (Auto) 0 /lpf Urine Epithelial Cells (Auto) 5-10 /lpf Urine Bacteria (Auto) NEG Lactic Acid Level 2.6 mmol/L 1.3 mmol/L Troponin I 1.450 ng/ml 0.982 ng/ml White Blood Count 2.35 K/uL Red Blood Count 3.39 M/uL Hemoglobin 10.3 g/dL Hematocrit 32.5 % Mean Corpuscular Volume 95.9 fL Mean Corpuscular Hemoglobin 30.4 pg Mean Corpuscular Hemoglobin Concent 31.7 g/dl Platelet Count 47 K/uL Mean Platelet Volume 10.9 fL Neutrophils (%) (Auto) 82.1 % Lymphocytes (%) (Auto) 8.1 % Monocytes (%) (Auto) 8.1 % Eosinophils (%) (Auto) 0.0 % Basophils (%) (Auto) 0.0 % Neutrophils # (Auto) 1.93 K/uL Lymphocytes # (Auto) 0.19 K/uL Monocytes # (Auto) 0.19 K/uL Eosinophils # (Auto) 0.00 K/uL Basophils # (Auto) 0.00 K/uL RDW Standard Deviation 61.5 fL RDW Coefficient of Variation 17.7 % Immature Granulocyte % (Auto) 1.7 % Immature Granulocyte # (Auto) 0.04 K/uL Large Platelets 1+ Sodium Level 135 mmol/L Potassium Level 4.1 mmol/L Chloride Level 99 mmol/L Carbon Dioxide Level 29 mmol/L Anion Gap 7.0 mmol/L Blood Urea Nitrogen 25 mg/dl Creatinine 0.82 mg/dl Est Creatinine Clear Calc Drug Dose 75.4 ml/min Estimated GFR () 96.1 Estimated GFR (Non- 82.9 BUN/Creatinine Ratio 31.1 Random Glucose 123 mg/dl Calcium Level 8.5 mg/dl Magnesium Level 1.7 mg/dl Digoxin Level 1.8 ng/ml Assessment and Plan This patient is an 81-year-old male with a history of chronic combined systolic and diastolic CHF, AICD, CAD status post CABG, paroxysmal atrial fibrillation status post MAZE procedure, HTN, severe pulmonary HTN, COPD, Crohn's disease, PAD, AAA, amaurosis fugax, MDS, Raynaud's syndrome, SLE, and history of hematuria as well as renal bleed requiring partial renal artery embolization. He presents to the ER with 5-7 days of shortness of breath that became acutely worse in the last 24 hours. He reports an increase in sputum that was thick and white, as well as cough in the last few days-his has had a cough as well. He denies fevers or chills. He did have some chest pressure a few days ago which is now gone. He saw his political geographer 2 days prior to admission and was given azithromycin and started on a prednisone burst of 40 mg daily. He was noted in the outpatient chart at that time to have an irregular heartbeat with a rate greater than 100. He has also had orthopnea, increased leg swelling , and weight gain. He called his christmas tree farm worker's office last week and was advised to take Lasix but this did not improve him significantly. He denies palpitations and was unaware that he is in rapid atrial fibrillation. He came in by ambulance and was severely hypoxic in the low 80s, required BiPAP , and was given Solu-Medrol, Lasix IV, Levaquin, Zosyn, and 10 mg of IV diltiazem. He was noted to be in rapid atrial fibrillation, a chest x-ray showed the appearance of pulmonary vascular congestion without pneumonia. His proBNP was significantly elevated at almost 7000, and his troponin was elevated at 0.472. His ECG showed some nonspecific ST changes, as well as rapid atrial fibrillation in the 150s. Rapid atrial fibrillation/NSVT-Rates much improved today after loading with digoxin upon admission. Hypotension prohibited further AV natividad blocking agents. This probably came on at least 1 month ago given outpatient notations on physical exam, cardiology also notes that this was picked up on recent interrogation of his device. His blood pressure is improved now. had 6 beats VT on tele Digoxin level 1.8 this AM, renal function normal -continue po digoxin 125 mcg daily -continue telemetry monitoring -Defer on anticoagulation at this time after discussion with cardiology given his significant thrombocytopenia from MDS, also with a history of bleed in the left kidney requiring renal artery embolization previously-discussed with the patient and his at the time of admission -Continue home carvedilol 3.125 mg p.o. twice daily -If rate is not controlled with digoxin, will consider IV amiodarone however this may convert him to normal rhythm and without being anticoagulated, this could have a poor outcome -Greatly appreciate cardiology consultation Acute on chronic combined systolic and diastolic CHF/severe pulmonary HTN- likely secondary to rapid atrial fibrillation ongoing. ECHO now with worsening EF again 20-25%, with moderate right sided systolic dysfunction, LV diastolic dysfunction Is diuresing and weaned off O2, much improved -continue Diuresis with IV Lasix 20 mg twice daily -Strict I's and O's, daily weights, low-sodium diet -hold lisinopril due to hypotension Acute exacerbation of COPD/acute hypoxic respiratory failure-severely hypoxic on admission in the low 80s, required BiPAP and was in significant respiratory distress. Improved with BiPAP and IV diuretics. Now weaned off O2 Chest x-ray on admission with pulmonary vascular congestion and trace bilateral pleural effusions, no evidence of pneumonia. He did receive 1 dose of Zosyn and 1 dose of Levaquin in the ER. Repeat CXR now much improved -Continue IV Solu-Medrol and wean down -Bronchodilators using levalbuterol given tachycardia -Continue home Spiriva, Advair -Continue Levaquin, renally dosed, for COPD exacerbation with acute bronchitis for total of 7 days-today day #2/7 -Blood cultures were drawn in the ER and should be followed, but no evidence of sepsis -Lactate was elevated at 6.65 on admission and now back to normal, could be secondary to considerable respiratory distress CAD status post CABG and GABRIEL to the LAD/HTN/PAD/AAA/elevated troponin-elevated troponin likely demand ischemia and has since trended downward after peak at 1.4 , he has no current symptoms of ACS. Blood pressures are quite low at this time likely due to rapid atrial fibrillation. AAA has been followed closely by vascular surgery at [place] and deferring nonsurgical management due to multiple comorbidities at this time -Continue aspirin, statin, Coreg -holding lisinopril as above for hypotension Pulmonary nodules-CXR here with RML 1 cm nodule-is followed by Pulm as an outpt for other pulm nodules, had PET/CT 01/2017 -f/u Pulm as outpt Crohn's disease with history of bowel surgeries and small bowel obstruction-no acute issues History of amaurosis fugax/JOSE/previous right CEA-no acute issues at this time -Continue aspirin, statin MDS/pancytopenia-platelets are the lowest they have been upon review of his previous labs available here-platelets are lower at 47K today, anemia is mild and stable with a hemoglobin of 10.3, WBCs low at 2. Likely his counts are worse due to acute illness. He is followed by informatics developer, Dr. Nomi Rivera. -Follow CBC -Consider consultation with hematology if counts continued to decline -We will not anticoagulate him given his significant thrombocytopenia SLE/Raynaud's syndrome-stable at this time, with pitting on the feet without evidence of gangrene or infection -May benefit at some point from a calcium channel melissa if BP can tolerate Prophylaxis-ADILENE mckeone and SCDs only at this time, if platelets improve, could consider SQ heparin Disposition-from home and normally independent, will need PT/OT evaluations when more stable -continued stay for IV diuresis Full code
[2017-07-08] MEDS ORDERED: DIGOXIN 0.125 MG TAB PO SCH (16:00)
[2017-07-08] MEDS: SIMVASTATIN 40 MG TAB PO SCH (20:16)
[2017-07-09] MEDS: LEVALBUTEROL 1.25MG/0.5ML NEB INH SCH ×2 (01:47→07:20)
[2017-07-09 04:00] VITALS: BP 97/59; PULSE 79; TEMP 36.7; O2SAT 94
[2017-07-09 04:46] VITALS: BP 120/65; PULSE 82; TEMP 37.5; O2SAT 96
[2017-07-09] MEDS: FLUTICASONE/SALMETEROL 250/50 (ADVAIR) 14 PUFF/1 INHALER INH SCH (05:13)
[2017-07-09] MEDS: METHYLPREDNISOLONE IV 60 MG in SYRINGE 0 ML IV SCH (06:27)
[2017-07-09 07:06] LABS: HEMATOCRIT 33.9 % (42-52); HEMOGLOBIN 10.3 g/dL (14.0-18.0); MEAN CELL VOLUME 96.6 fL (80-100); MEAN CORPUSCULAR HEMOGLOBIN 29.3 pg (25-34); MEAN CORPUSCULAR HGB CONC 30.4 g/dl (32-36); RED CELL DISTRIBUTION WIDTH CV 17.4 % (11.5-14.5); WHITE BLOOD COUNT 2.13 K/uL (4.8-10.8)
[2017-07-09 07:07] VITALS: BP 142/92; PULSE 92; TEMP 36.6; O2SAT 95
[2017-07-09 07:35] VITALS: PULSE 84; O2SAT 96
[2017-07-09 07:35] LABS: CALCIUM 8.6 mg/dl (8.5-10.1); CREATININE 0.8 mg/dl (0.60-1.40)
[2017-07-09 07:47] LABS: IG# 0.01 K/uL (0.00-0.02); LYMPH % 22.1 %; LYMPH ABS # 0.47 K/uL (1.2-3.4); MEAN PLATELET VOLUME 10.9 fL (7.4-10.4); MONO % 14.1 %; NEUT % 63.3 %; NEUT ABS # 1.35 K/uL (1.4-6.5); PLATELET COUNT 59 K/uL (130-400)
[2017-07-09] MEDS: CARVEDILOL 3.125 MG TAB PO SCH (08:01)
[2017-07-09] MEDS: VITAMIN B COMPLEX TAB PO SCH (08:01)
[2017-07-09] MEDS: FUROSEMIDE INJ 20 MG in SYRINGE 0 ML IV SCH (08:01)
[2017-07-09] MEDS: ASPIRIN 81 MG ECTAB PO SCH (08:02)
[2017-07-09] MEDS: CYANOCOBALAMIN 500 MCG TAB (VIT B-12) PO SCH (08:02)
[2017-07-09] MEDS: GUAIFENESIN 600 MG TABCR PO SCH (08:02)
[2017-07-09] MEDS: CHOLECALCIFEROL 1000 INTER.UNIT TAB PO SCH (08:02)
[2017-07-09] MEDS: TIOTROPIUM BROMIDE 5 PUFF/90 MCG INH INH SCH (08:04)
--- NOTE | 2017-07-09 08:56 | Hospitalist Progress Note ---
Hospitalist Progress Note Date of Service Jul 09, 2017. Objective Vital Signs Date Time Temp Pulse Resp B/P (MAP) Pulse Ox O2 Delivery O2 Flow Rate FiO2 07/09/17 07:35 84 16 96 Room Air 07/09/17 07:07 36.6 92 18 142/92 (109) 95 Room Air 07/09/17 04:00 36.7 79 18 97/59 (72) 94 Room Air 07/09/17 04:00 Room Air 07/08/17 23:59 Room Air 07/08/17 23:49 36.4 101 18 125/75 (92) 94 07/08/17 20:00 Room Air 07/08/17 19:38 100 16 95 Room Air 07/08/17 19:11 36.8 83 18 121/78 (92) 94 Room Air 07/08/17 16:35 91 07/08/17 16:00 Room Air 07/08/17 15:21 36.8 91 18 116/80 (92) 91 Room Air 07/08/17 15:05 81 16 98 Room Air 07/08/17 12:00 Room Air 07/08/17 11:36 36.4 84 20 121/75 (90) Laboratory Results Last 24 Hours Test 07/09/17 06:51 White Blood Count 2.13 K/uL Red Blood Count 3.51 M/uL Hemoglobin 10.3 g/dL Hematocrit 33.9 % Mean Corpuscular Volume 96.6 fL Mean Corpuscular Hemoglobin 29.3 pg Mean Corpuscular Hemoglobin Concent 30.4 g/dl Platelet Count 59 K/uL Mean Platelet Volume 10.9 fL Neutrophils (%) (Auto) 63.3 % Lymphocytes (%) (Auto) 22.1 % Monocytes (%) (Auto) 14.1 % Eosinophils (%) (Auto) 0.0 % Basophils (%) (Auto) 0.0 % Neutrophils # (Auto) 1.35 K/uL Lymphocytes # (Auto) 0.47 K/uL Monocytes # (Auto) 0.30 K/uL Eosinophils # (Auto) 0.00 K/uL Basophils # (Auto) 0.00 K/uL RDW Standard Deviation 61.0 fL RDW Coefficient of Variation 17.4 % Immature Granulocyte % (Auto) 0.5 % Immature Granulocyte # (Auto) 0.01 K/uL Platelet Estimate DECREASED Sodium Level 138 mmol/L Potassium Level 4.0 mmol/L Chloride Level 102 mmol/L Carbon Dioxide Level 29 mmol/L Anion Gap 7.0 mmol/L Blood Urea Nitrogen 31 mg/dl Creatinine 0.80 mg/dl Est Creatinine Clear Calc Drug Dose 70.6 ml/min Estimated GFR () 97.1 Estimated GFR (Non- 83.8 BUN/Creatinine Ratio 38.3 Random Glucose 97 mg/dl Calcium Level 8.6 mg/dl Magnesium Level 1.8 mg/dl Assessment and Plan 81 yo M with PMHx chronic combined systolic and diastolic CHF, AICD, CAD status post CABG, paroxysmal atrial fibrillation status post MAZE procedure, HTN , severe pulmonary HTN, COPD, Crohn's disease, PAD, AAA, amaurosis fugax, MDS, Raynaud's syndrome, SLE, and history of hematuria as well as renal bleed requiring partial renal artery embolization. Pt presented with SOB, sputum, cough. Was started on azithromycin and prednisone as outpt 2d prior to admission. Required bipap for hypoxia via EMS on way here. Found to be in afib, with severe pulm congestion on cxr and elevated bnp. Rapid atrial fibrillation/NSVT - loading with digoxin upon admission improved. Hypotension initially prohibited further AV natividad blocking agents - now resolved. Continue Digoxin po 0.125 daily- digoxin level 1.8 on 07/08 Continue carvedilol 3.125 mg po BID - cardiology on board- appreciate recs - also notes that this was picked up on recent interrogation of his device. His blood pressure is improved now. - overnight events on tele - Defer on anticoagulation at this time after discussion with cardiology given his significant thrombocytopenia from MDS, also with a history of bleed in the left kidney requiring renal artery embolization previously-discussed with the patient and his at the time of admission Acute on chronic combined systolic and diastolic CHF/severe pulmonary HTN- likely secondary to rapid atrial fibrillation ongoing. - ECHO now with worsening EF again 20-25%, with moderate right sided systolic dysfunction, LV diastolic dysfunction - continue Diuresis with IV Lasix 20 mg BID - Strict I's and O's, daily weights, low-sodium diet - hold lisinopril due to hypotension Acute exacerbation of COPD Acute hypoxic respiratory failure Bronchitis - Severely hypoxic on admission in the low 80s, required BiPAP and was in significant respiratory distress. Improved with BiPAP and IV diuretics. Now weaned off O2 - Repeat CXR now much improved - Continue IV Solu-Medrol 60 mg Q12h and wean off - Bronchodilators using levalbuterol given tachycardia - Continue home Spiriva, Advair - Continue Levaquin x 7 days (started 07/07) - BCx NGTD CAD status post CABG and GABRIEL to the LAD/HTN/PAD/AAA/elevated troponin -elevated troponin likely demand ischemia and has since trended downward after peak at 1.4, he has no current symptoms of ACS. - BP much improved - AAA has been followed closely by vascular surgery at [place] and deferring nonsurgical management due to multiple comorbidities at this time - Continue aspirin, statin, Coreg - HOLD lisinopril Pulmonary nodules -CXR here with RML 1 cm nodule-is followed by Pulm as an outpt for other pulm nodules, had PET/CT 01/2017 -f/u Pulm as outpt Crohn's disease -history of bowel surgeries and small bowel obstruction- stable History of amaurosis fugax/JOSE/previous right CEA-no acute issues at this time -Continue aspirin, statin MDS/pancytopenia - CBC remains stable today, if worsens then consider heme consult - follows with Dr. Olea as outpt. - no chem anticoagulation given thrombocytopenia SLE/Raynaud's syndrome --stable at this time, with pitting on the feet, without evidence of gangrene or infection -May benefit at some point from a calcium channel melissa if BP can tolerate DVT Prophylaxis-ADILENE hose and SCDs, no chemical anticoagulation given thrombocytopenia Full code Disposition-from home and normally independent,PT/OT evals
--- NOTE | 2017-07-09 10:40 | Cardiology Follow-Up ---
Subjective General Date of Service: Jul 09, 2017. Pt evaluation today including: conversation w/ patient, chart review, lab review, review of studies History of Present Illness The patient is a 81 year old male Allergies Coded Allergies: Ibuprofen (Verified Allergy, Unknown, ileus, 03/02/17) Morphine (Verified Adverse Reaction, Intermediate, NARCOTICS-PATIENT GETS AN ILEUS, 07/07/17) IF PATIENT IS UNABLE TO MOVE AND WALK AFTER RECEIVING ANY NARCOTICS, HE WILL GET AN ILEUS. Social History Smoking Status: Former Smoker Hx Tobacco Use In Past Year?: No (QUIT 1989, SMOKED 1PPD FOR 10-15 YRS, PIPE SMOKING ) Hx Alcohol Use - Type And Amou: No Hx Substance Use - Type And Am: No Problem List Medical Problems: (1) Abnormal ECG Status: Acute (2) Congestive heart failure Status: Acute (3) Hematuria Status: Acute (4) Ileus Status: Acute (5) Nausea & vomiting Status: Acute (6) Partial small bowel obstruction Status: Acute (7) Right lower lobe pneumonia Status: Acute Review of Systems Respiratory: + cough, + wheezing, No dyspnea on exertion, No dyspnea at rest Cardiac: No chest pain, No edema, No palpitations Physical Exam Vital Signs Last Vital Signs Documentation Date Time Temp Pulse Resp B/P (MAP) Pulse Ox O2 Delivery O2 Flow Rate FiO2 07/09/17 07:35 84 16 96 Room Air 07/09/17 07:07 36.6 142/92 (109) 07/08/17 08:00 2.0 07/07/17 06:29 40 Physical Exam Constitutional: Level of Distress: chronically ill Lungs: Auscultation: decreased breath sounds, expiratory wheezing, rhonchi Cardiovascular: Heart Auscultation: II/ WSM, irregular rate rhythm Abdomen: Bowel Sounds: normal Inspection & Palpation: soft, no tenderness, guarding & rebound, distended Extremities: no edema Assessment and Plan Assessment and Plan IMPRESSION: 1. Acute on chronic systolic heart failure. 2. Atrial fibrillation with a rapid ventricular response--improved 3. Borderline hypotension--resolved 4. Coronary artery disease status post most recent cardiac catheterization in May 2014 with total occlusion of the circumflex, status post angioplasty and stenting of high grade disease in the proximal and mid right coronary artery and mild to moderate left anterior descending coronary artery disease with known occluded left internal mammary artery graft to the left anterior descending coronary artery. 5. History of mild left ventricular dysfunction in May 2016 with an ejection fraction in the range of 45%. 6. History of significant tricuspid regurgitation with moderate pulmonary hypertension and a pulmonary artery pressure of 55 mmHg. 7. Myelodysplastic syndrome with a platelet count of 68,000. I would not AC with PLT count and MDS--risk outweighs benefit HR improved --continue with Coreg and Dig IF bP room I would increase Coreg to 6.25mg BID --we can add BENITO as outpt if BP allows Dig level after load is not accurate and will check as outpt BP improved and stable change lasix to PO as he looks prerenal today--40mg daily--may need to reduce Still with wheezing and hastings sputum--on antibiotics Laboratory Results Last 24 Hours Test 07/09/17 06:51 White Blood Count 2.13 K/uL Red Blood Count 3.51 M/uL Hemoglobin 10.3 g/dL Hematocrit 33.9 % Mean Corpuscular Volume 96.6 fL Mean Corpuscular Hemoglobin 29.3 pg Mean Corpuscular Hemoglobin Concent 30.4 g/dl Platelet Count 59 K/uL Mean Platelet Volume 10.9 fL Neutrophils (%) (Auto) 63.3 % Lymphocytes (%) (Auto) 22.1 % Monocytes (%) (Auto) 14.1 % Eosinophils (%) (Auto) 0.0 % Basophils (%) (Auto) 0.0 % Neutrophils # (Auto) 1.35 K/uL Lymphocytes # (Auto) 0.47 K/uL Monocytes # (Auto) 0.30 K/uL Eosinophils # (Auto) 0.00 K/uL Basophils # (Auto) 0.00 K/uL RDW Standard Deviation 61.0 fL RDW Coefficient of Variation 17.4 % Immature Granulocyte % (Auto) 0.5 % Immature Granulocyte # (Auto) 0.01 K/uL Platelet Estimate DECREASED Sodium Level 138 mmol/L Potassium Level 4.0 mmol/L Chloride Level 102 mmol/L Carbon Dioxide Level 29 mmol/L Anion Gap 7.0 mmol/L Blood Urea Nitrogen 31 mg/dl Creatinine 0.80 mg/dl Est Creatinine Clear Calc Drug Dose 70.6 ml/min Estimated GFR () 97.1 Estimated GFR (Non- 83.8 BUN/Creatinine Ratio 38.3 Random Glucose 97 mg/dl Calcium Level 8.6 mg/dl Magnesium Level 1.8 mg/dl
[2017-07-09] MEDS ORDERED: LEVOFLOXACIN 500 MG TAB PO SCH (11:00)
[2017-07-09 11:40] VITALS: BP 124/82
[2017-07-09] MEDS ORDERED: LSX40 PO (11:54)
[2017-07-09] MEDS ORDERED: DOXY-300 PO (11:54)
[2017-07-09] MEDS ORDERED: LNX125 PO (11:54)
[2017-07-09] MEDS ORDERED: NYSS5 PO ×2 (11:54→15:50)
[2017-07-09] MEDS ORDERED: PRED20TA PO (11:54)
[2017-07-09] MEDS ORDERED: NYSTATIN SUSP 500,000 U/5 ML UDC PO SCH (12:00)
--- NOTE | 2017-07-09 12:05 | Discharge Instructions ---
Discharge Instructions Date of Service Jul 09, 2017. Admission Reason for Admission: Acute Chf,Rapid Atrial Fibrillation Discharge Discharge Diagnosis / Problem: Acute CHF exacerbation, atrial fibrillation Discharge Goals Goal(s): Decrease discomfort, Improve function, Increase independence, Improve disease control Activity Recommendations Activity Limitations: resume your previous activity Lifting Limitations: no more than 25 pounds Exercise/Sports Limitations: rest today, gradually increase as tolerated May Resume Sexual Activity: when tolerated Shower/Bathe: no limitations Driving or Machine Use: resume 1 day after discharge . Instructions / Follow-Up Instructions / Follow-Up You were admitted to [facility] with shortness of breath and diagnosed with acute exacerbation of Congestive Heart Failure, and acute exacerbation of atrial fibrillation with rapid ventricular response. You also were hypoxic and were diagnosed with acute COPD exacerbation along with bronchitis. For CHF: During your stay here you were treated with intravenous diuretic to remove fluid, and cardiac medications to control your heart rate. Cardiology evaluated you during your stay here. For COPD/bronchitis: You also received antibiotics and steroids to help with your breathing, which improved. Medications: Take Lasix 40 mg daily by mouth Take doxycycline x 5 days as prescribed. Finish on 07/14. Take prednisone taper as follows: 60 mg (3 tabs) x 1 day starting on 07/10, then 40 mg ( 2 tabs) x 2 days 20 mg (1 tab) x 2 days. Finish on 07/14. Swish and spit fluconazole suspension for thrush for next 7 days. Continue taking your other medications as prescribed. Appointments: Follow up with PCP within 1 week. Follow up with cardiology within 1 week, Dr. Brown. An appointment has been requested for you. Specific CHF Instructions: Call your Primary Care doctor if any of the following symptoms or problems start or get worse: * Shortness of breath or difficulty breathing * Wake up at night short of breath * Chest pain * Cough * Swelling of your hands, feet, or legs * More fatigued or tired with your normal activity * Palpitations - sudden fast heart beats WEIGHT * Weigh yourself every morning after using the bathroom. * Use the same scale. * Wear the same amount of clothing. * Write your weight down on a chart. * Call your Primary Care doctor if you gain more than 2-3 pounds in 1-2 days, or more than 5 lbs in 1 week. MEDICATIONS * Use this discharge instruction sheet for medication instructions. * Take your medications at the time your doctor ordered. * Do not skip a dose of your medicines. * Continue fluid restriction of 1800 mL per day * If you miss a dose of medicine, take it as soon as possible, but DO NOT DOUBLE A DOSE. * Read your medicine information when you get home. * Know all of the side effects of your medicine. If in doubt, ask your pharmacist * Call your Primary Care doctor's office if you have any side effects. * Be sure all of your doctors know what medicine and herbs you take (including cold, flu, and herbal medicine). Take the following with you to your follow-up doctor appointments: * Weight Chart * Medication List * List of questions Do not drink excessive alcohol, beer or wine. Current Hospital Diet Patient's current hospital diet: Low Sodium Diet (2gm Na) Discharge Diet Recommended Diet: AHA Diet (Heart Healthy), Low Sodium Diet (2gm Na) Fluid Restriction: 1800 ml (7 cups) Pending Studies Studies pending at discharge: no Medical Emergencies . Who to Call and When: Call 911 or go to the Emergency Room if: * If at any time you feel your situation is an emergency * You have tightness or pain in your chest that does not go away with rest or Nitroglycerin * You are very short of breath even with rest . Non-Emergent Contact Non-Emergency issues call your: Primary Care Provider, Air Pollution Compliance Inspector Call Non-Emergent contact if: you have a fever, temperature is above 100.5, your pain is not controlled, your pain is worsening, your pain is unusual for you, your pain is concerning you, you have any medication questions other concerns with your health. Call 911 or go directly to the Emergency Department if you experience any of the following: Chest pain, chest tightness, shortness of breath, abdominal pain , lightheadedness, dizziness, gastrointestinal bleeding, or have any other concerns regarding your health. . Past History Medical & Surgical History: (1) Acute CHF (congestive heart failure) (2) Rapid atrial fibrillation (3) Hypotension (4) History of coronary artery disease (5) COPD exacerbation (6) Bronchitis . "Provider Documentation" section prepared by Jaclyn Miner. . [place] Drug Monitoring Program Search Results: no issues identified
[2017-07-09 12:21] VITALS: BP 124/82; PULSE 84; TEMP 36.6; O2SAT 96
--- NOTE | 2017-07-09 15:50 | Discharge Summary ---
Discharge Summary Date of Service Jul 09, 2017. Discharge Summary Admission Date: Jul 07, 2017 at 08:54 Discharge Date: Jul 09, 2017 Discharge Disposition: Home Principal Diagnosis: Acute combined systolic and diastolic CHF exacerbation, A. fib with RVR Problems/Secondary Diagnoses: Medical Problems: (1) Acute combined systolic and diastolic CHF (congestive heart failure) (2) Bowel resection (3) Bronchitis (4) COPD exacerbation (5) Crohn's disease (6) Enterocolitis (7) Intractable vomiting with nausea (8) Lupus (9) Rapid atrial fibrillation Procedures: CXR 1 view 07/07/17 IMPRESSION: Cardiomegaly and radiographic evidence of mild pulmonary vascular congestion. No evidence of focal pulmonary consolidation CXR 2 view 07/08/17 IMPRESSION: 1. No acute process within the chest. 2. Emphysema. 3. Possible 1 cm nodule within the right midlung zone. Follow-up nonemergent chest CT is recommended for further evaluation. Consultations: Cardiology Medication Reconciliation New Medications: Doxycycline (Monohydrate) (Doxycycline) 100 Mg Cap 100 MG PO BID for 5 Days, #10 CAP Prednisone (Prednisone) 20 Mg Tab 1 TAB PO UD for 5 Days, #8 TAB Take 60 mg x 1 day, then 40 mg x 2 days, then 20 mg x 2 days and stop. Finish on 07/14. Digoxin (Digoxin) 0.125 Mg Tab 0.125 MG PO DAILY@1600 for 30 Days, #30 TAB Furosemide (Furosemide) 40 Mg Tab 40 MG PO QAM for 30 Days, #30 TAB Nystatin (Nystatin) 5 Ml Susp 5 ML PO ACHS for 7 Days, #28 DOSE Continued Medications: Albuterol (Ventolin Hfa) 60 Puffs/5400 Mcg Aers 2 PUFFS INH q4-6 PRN for Shortness of Breath Aspirin (Aspirin Chewable) 81 Mg Chew 81 MG PO DAILY B-Complex Vitamins (Vitamin B Complex) 1 Tab Tab 1 TAB PO QAM Carvedilol (Coreg) 3.125 Mg Tab 3.125 MG PO AMPM Cholecalciferol (D 1000) 1,000 Unit Cap 1 TAB PO BID Cyanocobalamin (Vitamin B12) 1,000 Mcg Tab 1000 MCG PO QAM Fluticasone Prop/Salmeterol (Advair Diskus 250-50 Mcg/Dose) 14 Puff/1 Inhaler Aerp 1 PUFF INH BID Folic Acid (Folvite) 1 Mg Tab 1 MG PO QAM, TAB Levalbuterol (Levalbuterol HCl) 0.63 Mg/3 Ml Nebu 1 VIAL NEB Q4H PRN for Shortness of Breath Lisinopril (Zestril) 5 Mg Tab 5 MG PO DAILY, TAB Lutein (Lutein) 6 Mg Cap 6 MG PO BID Simvastatin (Zocor) 40 Mg Tab 40 MG PO QPM, TAB Tiotropium Fenton (Spiriva Handihaler) 30 Puff/540 Mcg Aerp 1 CAP INH DAILY, INHALER Discontinued Medications: Azithromycin (Zithromax Z-Charly) 250 Mg Tab 1 PKT PO UD PRESCRIBED 07-05-17 Furosemide (Lasix) 20 Mg Tab 20 MG PO 3XWK PRN for prn, TAB has orders from cardio and how to take this ...weight related Prednisone Tab (Prednisone) 10 Mg Tab 10 MG PO DIRECTED 4 TABS DAILY X2 DAYS 3 TABS DAILY X2 DAYS 2 TABS DAILY X2 DAYS 1 TAB DAILY X2 DAYS PRESCRIBED 07-05-17 Discharge Exam The patient was seen and examined this morning. Pt reports doing well today. He denies any acute complaints regarding his breathing, does not feel short of breath with ambulation, and is not requiring any supplemental O2. He denies any chest heaviness or tightness. Patient denies any swelling in his lower extremities today and reports that overall he feels much improved. Discussion was held regarding limiting salt intake and abiding to fluid restrictions as an outpatient, and he is agreeable to this. ROS: Constitutional: No fever, sweats or chills Eyes: No diplopia, no worsening or blurred vision ENT: normal hearing, no trouble swallowing Respiratory: No cough, sputum, dyspnea at rest or on exertion Cardiovascular: No chest pain, tightness or palpitations Abdomen: No pain, nausea, vomiting, diarrhea or constipation Musculoskeletal: No joint pain, calf pain, swelling Neurologic: No weakness, numbness/tingling, or balance problems Psychiatric: No anxiety or depression Skin: No rash or itch PE: General: awake, alert, no apparent distress Head: Normocephalic, atraumatic ENT: PERRL, EOMI, + pharyngeal exudate, mucous membranes moist Chest: on room air, minimal faint crackles bibasilarly, no adventitious breath sounds Cardiac: Irregularly irregular, heart rate controlled in the 90s, +systolic murmur, no JVD, normal peripheral pulses, good capillary refill Abdominal: NABS x 4 quadrants, soft, nontender to palpation, no rebound, guarding or tenderness Extremities: Normal inspection, no peripheral edema or erythema, calfs nontender to palpation Psych: Normal mood and affect Neuro: AAO x 3, speech is clear, no peripheral sensory deficits Hospital Course 81 yo M with PMHx chronic combined systolic and diastolic CHF, AICD, CAD status post CABG, paroxysmal atrial fibrillation status post MAZE procedure, HTN , severe pulmonary HTN, COPD, Crohn's disease, PAD, AAA, amaurosis fugax, MDS, Raynaud's syndrome, SLE, and history of hematuria as well as renal bleed requiring partial renal artery embolization. Pt presented with SOB, sputum, cough. Was started on azithromycin and prednisone as outpt 2d prior to admission. Required bipap for hypoxia via EMS on way here. Found to be in afib, with severe pulm congestion on cxr and elevated bnp. Rapid atrial fibrillation/NSVT - loading with digoxin upon admission improved. Hypotension initially prohibited further AV natividad blocking agents - now resolved. Continue Digoxin po 0.125 daily- digoxin level 1.8 on 07/08 but will need to be rechecked per cardiology at follow-up appointment Continue carvedilol 3.125 mg po BID - cardiology on board- appreciate recs - also notes that this was picked up on recent interrogation of his device. His blood pressure is improved now. - overnight events on tele - Defer on anticoagulation at this time after discussion with cardiology given his significant thrombocytopenia from MDS, also with a history of bleed in the left kidney requiring renal artery embolization previously-discussed with the patient and his at the time of admission Acute on chronic combined systolic and diastolic CHF/severe pulmonary HTN- likely secondary to rapid atrial fibrillation ongoing. - ECHO now with worsening EF again 20-25%, with moderate right sided systolic dysfunction, LV diastolic dysfunction - Changed from IV Lasix to 40 mg daily p.o. as an outpatient - Strict I's and O's, daily weights, low-sodium diet - hold lisinopril due to hypotension -resume upon discharge as BP has been stable Acute exacerbation of COPD Acute hypoxic respiratory failure Bronchitis - Severely hypoxic on admission in the low 80s, required BiPAP and was in significant respiratory distress. Improved with BiPAP and IV diuretics. Now weaned off O2 - Repeat CXR now much improved - Continue IV Solu-Medrol 60 mg Q12h -will transition to prednisone PO: 60 mg x 1 day, 40 mg x 2 days, then 20 mg x 2 days then stop. - Bronchodilators using levalbuterol given tachycardia - Continue home Spiriva, Advair - Received Levaquin starting 07/07 -we will transition over to doxycycline 100 mg BID x 5 more days to complete course - BCx NGTD CAD status post CABG and GABRIEL to the LAD/HTN/PAD/AAA/elevated troponin - elevated troponin likely demand ischemia and has since trended downward after peak at 1.4, he has no current symptoms of ACS. - BP much improved - AAA has been followed closely by vascular surgery at [place] and deferring nonsurgical management due to multiple comorbidities at this time - Continue aspirin, statin, Coreg - HOLD lisinopril Pulmonary nodules -CXR here with RML 1 cm nodule-is followed by Pulm as an outpt for other pulm nodules, had PET/CT 01/2017 -f/u Pulm as outpt Crohn's disease -history of bowel surgeries and small bowel obstruction- stable History of amaurosis fugax/JOSE/previous right CEA-no acute issues at this time -Continue aspirin, statin MDS/pancytopenia - CBC remains stable today, if worsens then consider heme consult - follows with Dr. Olea as outpt. - no chem anticoagulation given thrombocytopenia SLE/Raynaud's syndrome --stable at this time, with pitting on the feet, without evidence of gangrene or infection -May benefit at some point from a calcium channel melissa if BP can tolerate DVT Prophylaxis-ADILENE hose and SCDs, no chemical anticoagulation given thrombocytopenia Full code Disposition-from home and normally independent,PT/OT evals, discharged home today. Total Time Spent: Greater than 30 minutes This includes examination of the patient, discharge planning, medication reconciliation, and communication with other providers. Discharge Instructions Please refer to the electronic Patient Visit Report (Discharge Instructions) for additional information. Follow-Up Follow up with PCP within 1 week. Follow up with cardiology within 1 week, Dr. Brown. An appointment has been requested for you. Additional Copies To Tr Wild M.D.
[2017-07-10] MEDS ORDERED: FUROSEMIDE 40 MG TAB PO SCH (09:00)
--- NOTE | 2017-07-12 20:35 | Progress Note ---
Progress Note Date of Service Jul 12, 2017. Progress Note Received call from microbiology that 1/2 sets was + for GPC. cultures drawn on early AM of 07/07/17 and just turned positive today. The GPC are in clusters. This likely represents contamination. No Rx needed but will follow until final ID available. Addy DOWNS MD
== END 2017-07-09 14:23 | disposition home or self-care (01) | DRG 291 ==
LOC: EDBD 05:31 → C.EDA 05:32 → C.2T 08:54 → ENRESERV 12:35
PROVIDERS: ADMIT Family Medicine; ATTEND Internal Medicine
DX: I11.0 Hypertensive heart disease with heart failure (principal); J96.01 Acute respiratory failure with hypoxia; I47.2 Ventricular tachycardia; J44.1 Chronic obstructive pulmonary disease with (acute) exacerbation; I24.8 Other forms of acute ischemic heart disease; I48.0 Paroxysmal atrial fibrillation; R91.8 Other nonspecific abnormal finding of lung field; D46.9 Myelodysplastic syndrome, unspecified; I50.43 Acute on chronic combined systolic (congestive) and diastolic (congestive) heart failure; I25.10 Atherosclerotic heart disease of native coronary artery without angina pectoris; M32.9 Systemic lupus erythematosus, unspecified; I27.20 Pulmonary hypertension, unspecified; E78.00 Pure hypercholesterolemia, unspecified; I25.2 Old myocardial infarction; I73.00 Raynaud's syndrome without gangrene; I65.29 Occlusion and stenosis of unspecified carotid artery; Z79.899 Other long term (current) drug therapy; Z79.82 Long term (current) use of aspirin; Z79.52 Long term (current) use of systemic steroids; Z87.19 Personal history of other diseases of the digestive system; Z95.810 Presence of automatic (implantable) cardiac defibrillator; Z95.1 Presence of aortocoronary bypass graft; Z86.69 Personal history of other diseases of the nervous system and sense organs; Z87.891 Personal history of nicotine dependence; Z88.5 Allergy status to narcotic agent; Z88.6 Allergy status to analgesic agent